=== PATIENT | female | born 1980 | race African-American/Black ===

== ENCOUNTER 2016-11-17 16:37 | Observation (INO) | payer MEDICAID, OTHER ==
[~2016-11-17] VITALS: Ht 165.1 cm; Wt 70.9 kg
[~2016-11-17 16:37] MED LIST: ABIL5TAB6 PO; AMBI10TA PO; CLON0.1T PO; CYCL1TAB29 PO; LISI10TA3 PO; MILKSUS PO; NORE1TAB57 PO; OMEP20TA PO; SERT-129 PO; SUMA50TA2 PO; TOPA100T11 PO; [UNRECOGNIZED DRUG - CODE] IM
[2016-11-17 16:39] VITALS: BP 176/83; PULSE 118; RESP 16; TEMP 98.8; O2SAT 100
[2016-11-17] MEDS ORDERED: SODIUM CHLOR 0.9% 1000 ML INJ 1,000 ML IV SCH (16:58)
[2016-11-17 17:00] VITALS: RESP 18; O2SAT 100
[2016-11-17] MEDS ORDERED: SODIUM CHLORIDE 0.9% FLUSH 5 ML FLUSH IVF PRN (17:00)
[2016-11-17] MEDS ORDERED: ONDANSETRON HCL 4 MG/2 ML VIAL IVP ONE (17:00)
--- NOTE | 2016-11-17 17:04 | PD ---
HPI Chief Complaint: GI Complaint Time Seen by Provider: 17:00 Travel History International Travel<30 days: No Contact w/Intl Traveler<30days: No Traveled to known affect area: No History of Present Illness HPI 36-year-old female presents to the emergency department for evaluation of vomiting, chest pain, abdominal pain that started this morning. She states the abdominal pain and chest pain worsen when she vomits. Patient is unable to keep any food or fluids down today. She does report a history of spontaneous pneumothorax, hypertension, depression, seizures. Patient states that her abdominal pain is diffuse. She denies any fevers or chills. She states the chest pains over her anterior chest wall. She reports multiple episodes of vomiting, every 20 minutes. PFSH Past Medical History Hx Anticoagulant Therapy: No Anxiety: Yes Depression: Yes Cancer: No Cardiovascular Problems: No High Cholesterol: No Chemotherapy: No Chest Pain: Yes (CHRONIC FOR 3 YEARS) Cerebrovascular Accident: No Diabetes: No Diminished Hearing: No Endocrine: No Genitourinary: Yes Headaches: Yes Hypertension: Yes Immune Disorder: No Musculoskeletal: Yes Neurologic: Yes Psychiatric: Yes Reproductive: No Respiratory: Yes (HX OF PNEUMOTHORACES) Integumentary: Yes Immunizations Current: Yes Migraines: Yes Seizures: Yes (ONCE, NOT ON MEDS) Sickle Cell Disease: Yes (TRAIT) Tetanus Vaccination: > 5 Years ?: Not LMP: 10/16/16 : 9 Para: 9 Miscarriage: 0 : 0 Ovarian Cysts: Yes Tubal Ligation: Yes Past Surgical History Cardiac Surgery: Yes (CHEST TUBE 2006) Section: Yes (02/13/2010 X 1) Gynecologic Surgery: Yes () Thoracic Surgery: Yes (PNEUMOTHORAX) Other Surgery: Yes (right chest tube in aug 03 FOR SPONT. PNEUMOTHORAX) Social History Alcohol Use: No (pt. denies) Tobacco Use: Yes (1-2 CIGS/DAY) Substance Use: Yes (MARIJUANA OCCASIONALLY) Allergies-Medications (Allergen,Severity, Reaction): Coded Allergies: No Known Allergies (Verified , 11/17/16) Reported Meds & Prescriptions Reported Meds & Active Scripts Active Sertraline (Sertraline HCl) 100 Mg Tab 100 Mg PO DAILY Clonidine (Clonidine HCl) 0.1 Mg Tab 0.1 Mg PO DAILY PRN Ambien (Zolpidem Tartrate) 10 Mg Tab 5 Mg PO HS PRN Omeprazole 20 Mg Tab 20 Mg PO DAILY Reported Topamax (Topiramate) 100 Mg Tab 100 Mg PO BID Lisinopril 10 Mg Tab 20 Mg PO DAILY Abilify (Aripiprazole) 5 Mg Tab 10 Mg PO DAILY Loestrin 1.5/30 (Norethindrone-Ethinyl Estradiol) 1.5-30 Mg-Mcg Tab 1 Tab PO DAILY Review of Systems Except as stated in HPI: all other systems reviewed are Neg Physical Exam Narrative GENERAL: Well-developed well-nourished female patient, ambulatory. Afebrile. SKIN: Warm and dry. HEAD: Normocephalic. Atraumatic. EYES: No scleral icterus. No injection or drainage. NECK: Supple, trachea midline. No JVD or lymphadenopathy. CARDIOVASCULAR: Regular rate and rhythm without murmurs, gallops, or rubs. RESPIRATORY: Breath sounds equal bilaterally. No accessory muscle use. Lungs sounds are clear to auscultation. GASTROINTESTINAL: Abdomen soft and nondistended. Patient has generalized tenderness throughout her abdomen. MUSCULOSKELETAL: No cyanosis, or edema. Anterior chest wall pain is easily reproduced with palpation. BACK: Nontender without obvious deformity. No CVA tenderness. Data Data Last Documented VS Vital Signs Date Time Temp Pulse Resp B/P Pulse Ox O2 Delivery O2 Flow Rate FiO2 11/17/16 20:55 112 18 154/90 100 Room Air 11/17/16 16:39 98.8 Orders Complete Blood Count With Diff (11/17/16 16:58) Comprehensive Metabolic Panel (11/17/16 16:58) Lipase (11/17/16 16:58) Urinalysis - C+S If Indicated (11/17/16 16:58) Iv Access Insert/Monitor (11/17/16 16:58) Ecg Monitoring (11/17/16 16:58) Oximetry (11/17/16 16:58) Ondansetron Inj (Zofran Inj) (11/17/16 17:00) Sodium Chlor 0.9% 1000 Ml Inj (Ns 1000 M (11/17/16 16:58) Sodium Chloride 0.9% Flush (Ns Flush) (11/17/16 17:00) Electrocardiogram (11/17/16 16:58) Ed Urine Pregnancytest Poc (11/17/16 16:58) Chest, Single Ap (11/17/16 ) Creatine Kinase (Cpk) (11/17/16 16:58) Troponin I (11/17/16 16:58) Influenzae A/B Antigen (11/17/16 16:58) Promethazine Inj (Phenergan Inj) (11/17/16 18:00) Sodium Chlor 0.9% 1000 Ml Inj (Ns 1000 M (11/17/16 18:15) Metoclopramide Inj (Reglan Inj) (11/17/16 19:30) Diphenhydramine Inj (Benadryl Inj) (11/17/16 19:30) Ct Abd/Pel W Iv Contrast(Rout) (11/17/16 ) Iohexol 350 Inj (Omnipaque 350 Inj) (11/17/16 19:58) Ondansetron Inj (Zofran Inj) (11/17/16 20:45) Sodium Chlor 0.9% 1000 Ml Inj (Ns 1000 M (11/17/16 20:45) Labs Laboratory Tests Test 11/17/16 11/17/16 17:00 18:45 White Blood Count 7.9 TH/MM3 Red Blood Count 4.42 MIL/MM3 Hemoglobin 9.5 GM/DL Hematocrit 29.5 % Mean Corpuscular Volume 66.8 FL Mean Corpuscular Hemoglobin 21.4 PG Mean Corpuscular Hemoglobin 32.0 % Concent Red Cell Distribution Width 23.7 % Platelet Count 278 TH/MM3 Mean Platelet Volume 8.3 FL Neutrophils (%) (Auto) % Lymphocytes (%) (Auto) % Monocytes (%) (Auto) % Eosinophils (%) (Auto) % Basophils (%) (Auto) % Neutrophils # (Auto) TH/MM3 Lymphocytes # (Auto) TH/MM3 Monocytes # (Auto) TH/MM3 Eosinophils # (Auto) TH/MM3 Basophils # (Auto) TH/MM3 CBC Comment AUTO DIFF Differential Total Cells 100 Counted Neutrophils % (Manual) 78 % Lymphocytes % 18 % Monocytes % 3 % Eosinophils % 1 % Neutrophils # (Manual) 6.2 TH/MM3 Differential Comment FINAL DIFF MANUAL Platelet Estimate NORMAL Platelet Morphology Comment NORMAL Target Cells 1+ Ovalocytes 1+ Sodium Level 141 MEQ/L Potassium Level 3.7 MEQ/L Chloride Level 109 MEQ/L Carbon Dioxide Level 22.7 MEQ/L Anion Gap 9 MEQ/L Blood Urea Nitrogen 5 MG/DL Creatinine 0.69 MG/DL Estimat Glomerular Filtration 116 ML/MIN Rate Random Glucose 127 MG/DL Calcium Level 8.9 MG/DL Total Bilirubin 0.4 MG/DL Aspartate Amino Transf 11 U/L (AST/SGOT) Alanine Aminotransferase 18 U/L (ALT/SGPT) Alkaline Phosphatase 47 U/L Total Creatine Kinase 110 U/L Troponin I LESS THAN 0.02 NG/ML Total Protein 8.3 GM/DL Albumin 4.0 GM/DL Lipase 143 U/L Urine Color YELLOW Urine Turbidity HAZY Urine pH 6.0 Urine Specific [place] 1.017 Urine Protein 30 mg/dL Urine Glucose (UA) NEG mg/dL Urine Ketones TRACE mg/dL Urine Occult Blood NEG Urine Nitrite NEG Urine Bilirubin NEG Urine Urobilinogen LESS THAN 2.0 MG/DL Urine Leukocyte Esterase SMALL Urine RBC 2 /hpf Urine WBC 4 /hpf Urine Squamous Epithelial 39 /hpf Cells Urine Bacteria OCC /hpf Microscopic Urinalysis Comment CULT NOT INDICATED MDM Medical Decision Making Medical Screen Exam Complete: Yes Emergency Medical Condition: Yes Medical Record Reviewed: Yes Interpretation(s) chest x-ray - CONCLUSION: No acute disease. Left basilar subsegmental atelectasis. CT abdomen/pelvis - CONCLUSION: 1. Benign-appearing left ovarian cyst and trace free fluid in the pelvic cul-de- sac. 2. Otherwise chronic findings including innumerable tiny cysts of the liver and scarring of the right lung base. Differential Diagnosis Gastroenteritis versus influenza versus UTI versus spontaneous pneumothorax versus unlikely ACS Narrative Course 36-year-old female presents to the emergency department for evaluation nausea, vomiting, chest pain, abdominal pain that started this morning. EKG, CBC, CMP, lipase, CK, troponin, influenza, UA, urine test, chest x-ray are ordered and pending. Patient is given normal saline 1 L IV bolus and Zofran 4 mg IV. EKG shows sinus tachycardia, HR 102, no acute ST changes. CBC shows hgb 9.5, hct 29.5 which is patient's baseline. CMP shows no acute abnormality. Lipase is 143. CK is 110. Troponin is less than 0.02. Influenza is negative. UA shows no acute infection. UPT is negative. Chest x-ray shows no acute disease. CT abdomen/pelvis is ordered and shows benign-appearing left ovarian cyst and trace free fluid in the pelvic cul-de-sac; otherwise chronic findings including innumerable tiny cysts of the liver and scarring of the right lung base. Patient was given a total of Zofran 4 mg IV, Phenergan 25 mg IM, Reglan 10 mg IV with Benadryl 25 mg IV and is still complaining of nausea and vomiting. Patient is given another dose of Zofran 4 mg IV. I discussed admission for intractable nausea and vomiting with the patient and she agrees. Dr. Burris with [facility] accepted admission. Diagnosis Primary Impression: Intractable nausea and vomiting Qualified Code: R11.2 - Intractable vomiting with nausea, unspecified vomiting type Additional Impression: Gastroenteritis Admitting Information Admitting Physician Requests: Yuli Bone Nov 17, 2016 17:04
[2016-11-17 17:20] LABS: HEMATOCRIT 29.5 % (35.0-46.0); MEAN CELL VOLUME 66.8 FL (80.0-100.0); MEAN CORPUSCULAR HEMOGLOBIN 21.4 PG (27.0-34.0); PLATELET COUNT 278 TH/MM3 (150-450); RED BLOOD COUNT 4.42 MIL/MM3 (4.00-5.30); RED CELL DISTRIBUTION WIDTH 23.7 % (11.6-17.2); WHITE BLOOD COUNT 7.9 TH/MM3 (4.0-11.0)
--- NOTE | 2016-11-17 17:20 | RADRPT ---
EXAM DATE/TIME: 11/17/2016 17:08 [facility] COMPARISON: CHEST SINGLE AP, March 06, 2016, 9:59. INDICATIONS : Cough, congestion, and chest pain. MEDICAL HISTORY : Spontaneous pneumothorax. SURGICAL HISTORY : None. ENCOUNTER: Initial ACUITY: 1 day PAIN SCORE: 5/10 LOCATION: Bilateral chest FINDINGS: A single view of the chest demonstrates left basilar subsegmental atelectasis without evidence of mas s, infiltrate or effusion. The cardiomediastinal contours are unremarkable. Osseous structures are intact. CONCLUSION: No acute disease. Left basilar subsegmental atelectasis. Michael Gill MD on November 17, 2016 at 17:18 Board Certified Radiologist. This report was verified electronically.
[2016-11-17 17:24] LABS: HEMO FLAGS AUTO DIFF
[2016-11-17 17:37] LABS: ALT (GPT) 18 U/L (10-53); ANION GAP 9 MEQ/L (5-15); AST (GOT) 11 U/L (15-37); BICARBONATE 22.7 MEQ/L (21.0-32.0); BLOOD UREA NITROGEN 5 MG/DL (7-18); CHLORIDE 109 MEQ/L (98-107); GLOMERULAR FILTRATION RATE 116 ML/MIN (>89); POTASSIUM 3.7 MEQ/L (3.5-5.1); SODIUM (NA) 141 MEQ/L (136-145)
[2016-11-17 17:41] LABS: ALKALINE PHOSPHATASE 47 U/L (45-117); CREATINE KINASE 110 U/L (26-192); TOTAL BILIRUBIN ADULT 0.4 MG/DL (0.2-1.0)
[2016-11-17 17:44] LABS: EOSINOPHILS 1 % (0-4); NEUTROPHIL # MANUAL DIFF 6.2 TH/MM3 (1.8-7.7); POLYS (SEG NEUTROPHILS) 78 % (16-70); WBC DIFF SAMPLE 100
[2016-11-17 17:45] LABS: OVALOCYTES 1+ (NORMAL); PLATELET ESTIMATE SMEAR NORMAL (NORMAL); PLATELET MORPHOLOGY NORMAL (NORMAL); SCAN/DIFF FINAL DIFF MANUAL; TARGET CELLS 1+ (NORMAL)
[2016-11-17] MEDS ORDERED: PROMETHAZINE INJ 25 MG/ML VIAL IM ONE (18:00)
[2016-11-17] MEDS ORDERED: SODIUM CHLOR 0.9% 1000 ML INJ 1,000 ML IV ONE ×2 (18:15→20:45)
[2016-11-17 18:18] VITALS: BP 145/86; PULSE 98; RESP 17; O2SAT 100
[2016-11-17 19:25] LABS: BACTERIA, URINE OCC /hpf; BLOOD, URINE NEG (NEG); COMMENT (UR) CULT NOT INDICATED; CULTURE IF INDICATED CULT NOT INDICATED; GLUCOSE,URINE NEG (NEG); KETONE, URINE TRACE mg/dL (NEG); NITRITE,URINE NEG (NEG); SQUAMOUS EPITHELIAL CELL URINE 39 /hpf (0-5); URINE COLOR YELLOW (YELLW/STRAW)
[2016-11-17] MEDS ORDERED: diphenhydrAMINE HCL 50 MG/ML VIAL IV PUSH ONE (19:30)
[2016-11-17] MEDS ORDERED: METOCLOPRAMIDE HCL 10 MG/2 ML VIAL IV PUSH ONE (19:30)
[2016-11-17] MEDS ORDERED: IOHEXOL 350 MG/ML 10 ML VIAL (for RAD DIAG) IV ONE (19:58)
--- NOTE | 2016-11-17 20:13 | RADRPT ---
EXAM DATE/TIME: 11/17/2016 19:45 [facility] COMPARISON: CT ABDOMEN & PELVIS W CONTRAST, February 15, 2015, 7:14. INDICATIONS : Vomiting with diffuse abdomen pain today. IV CONTRAST: 96 cc Omnipaque 350 (iohexol) IV ORAL CONTRAST: No oral contrast ingested. RADIATION DOSE: 9.96 CTDIvol (mGy) MEDICAL HISTORY : Hypertension. SURGICAL HISTORY : section. ENCOUNTER: Initial ACUITY: 1 day PAIN SCALE: 4/10 LOCATION: Abdomen TECHNIQUE: Volumetric scanning of the abdomen and pelvis was performed. Using automated exposure control and ad justment of the mA and/or kV according to patient size, radiation dose was kept as low as reasonably achievable to obtain optimal diagnostic quality images. FINDINGS: LOWER LUNGS: Chronic pleural calcification/scarring again seen posteromedially of the right lung base. No acute in filtrate demonstrated. LIVER: 2 numerous to count subcentimeter hypodensities of the liver are again noted, stable. CT appearance o f the gallbladder within normal limits. SPLEEN: Normal size without lesion. PANCREAS: Within normal limits. KIDNEYS: Normal in size and shape. There is no mass, stone or hydronephrosis. ADRENAL GLANDS: Within normal limits. VASCULAR: There is no aortic aneurysm. BOWEL/MESENTERY: The stomach, small bowel, and colon demonstrate no acute abnormality. There is no free intraperitone al air or fluid. ABDOMINAL WALL: Within normal limits. RETROPERITONEUM: There is no lymphadenopathy. BLADDER: No wall thickening or mass. REPRODUCTIVE: 13 x 24 x 19 mm cyst seen of the left ovary. There is trace free fluid in the pelvic cul-de-sac. INGUINAL: There is no lymphadenopathy or hernia. MUSCULOSKELETAL: No acute bony abnormality demonstrated. Degenerative disc disease with vacuum phenomena seen at L5/S1 . CONCLUSION: 1. Benign-appearing left ovarian cyst and trace free fluid in the pelvic cul-de-sac. 2. Otherwise chronic findings including innumerable tiny cysts of the liver and scarring of the right lung base. 1. Ebenezer Ron MD on November 17, 2016 at 20:05 Board Certified Radiologist. This report was verified electronically.
[2016-11-17] MEDS ORDERED: ONDANSETRON HCL 4 MG/2 ML VIAL IV PUSH ONE (20:45)
[2016-11-17 20:55] VITALS: BP 154/90; PULSE 112; RESP 18; O2SAT 100
[2016-11-17] MEDS ORDERED: NALOXONE HCL 0.4 MG/ML AMP IV PRN (21:15)
[2016-11-17] MEDS: SODIUM CHLOR 0.9% 1000 ML INJ 1,000 ML IV SCH (22:11)
[2016-11-17] MEDS: SODIUM CHLORIDE 0.9% FLUSH 5 ML FLUSH FLUSH PRN (22:11)
[2016-11-17 22:22] VITALS: PULSE 119
[2016-11-17] MEDS ORDERED: NITROGLYCERIN 0.4 MG SL 25 TABS/BTL SL PRN (22:30)
[2016-11-17] MEDS: METOCLOPRAMIDE HCL 10 MG/2 ML VIAL IV PUSH PRN (23:17)
[2016-11-17 23:23] VITALS: PULSE 104
[2016-11-17 23:48] LABS: CREATINE KINASE 116 U/L (26-192)
[2016-11-18] VITALS (8 sets, daily range): BP systolic 133–178; BP diastolic 79–111; PULSE 84–105; RESP 16–24; TEMP 96.9–99.1; O2SAT 95–100
--- NOTE | 2016-11-18 01:22 | HHI.HP ---
[facility] Service [facility] Primary Care Physician No Primary Care Physician Admission Diagnosis intractable nausea/vomiting Diagnoses: (1) Atypical chest pain (2) Abdominal pain (3) Intractable nausea and vomiting (4) Anemia Chief Complaint: nausea and vomiting Travel History International Travel<30 Days: No Contact w/Intl Traveler <30 Da: No Traveled to Known Affected Are: No History of Present Illness Ms. Armstrong is a 36-year-old female with past medical history of migraine headaches, seizure x 1 not on antiepileptic drug therapy, chronic chest pain, pneumothorax with chest tube placement 2006 and 2014, ovarian cysts, anxiety, and depression who presented to the emergency room on 11/17/2016 for evaluation of chest pain, abdominal pain, nausea, and vomiting. The patient is seen in her room and states that around 3:00 in the morning yesterday she began to have diarrhea followed by abdominal pain with nausea and vomiting. Vomit was initially colored yellow or clear and is now brown. Vomitus is in an emesis basis and at the bedside and appears like coffee- grounds. Patient also reports having red diarrhea and upon further questioning , states she has streaks of red on the toilet paper after wiping. She denies any fever. States abdominal pain is severe and located in both upper and lower abdomen. She denies any recent antibiotic therapy. She complains of feeling fatigued and tired. She also complains of chest pain coming from the sides and associated with vomiting. She denies any associated shortness of breath, syncope, or palpitations. She denies any dysuria or hematuria. She does complain of some dizziness intermittently causing her to sit down because she doesn't want to walk when she is dizzy. She reports she had a similar symptoms to this about a week ago and they lasted for 4 days. Denies diabetes, coronary artery disease, congestive heart failure, atrial fibrillation, asthma, COPD, emphysema, hepatitis, cirrhosis, kidney problems, thyroid dysfunction, cancer, or problems with blood clots such as DVT, PE, or CVA. . Review of Systems Except as stated in HPI: all other systems reviewed are Neg Past Family Social History Past Medical History Migraine headaches Seizure once, nonepileptic drug therapy Chronic chest pain Spontaneous Pneumothorax with chest tube placement in 2006, 2014 and 2016- small pneumothoraces in 2015 and 2016 not requiring chest tubes Ovarian cyst Anxiety Depression . Past Surgical History Chest tube 2007 1 . Reported Medications Reported Meds & Active Scripts Active Sertraline (Sertraline HCl) 100 Mg Tab 100 Mg PO DAILY Clonidine (Clonidine HCl) 0.1 Mg Tab 0.1 Mg PO DAILY PRN Ambien (Zolpidem Tartrate) 10 Mg Tab 5 Mg PO HS PRN Omeprazole 20 Mg Tab 20 Mg PO DAILY Reported Topamax (Topiramate) 100 Mg Tab 100 Mg PO BID Lisinopril 10 Mg Tab 20 Mg PO DAILY Abilify (Aripiprazole) 5 Mg Tab 10 Mg PO DAILY Loestrin 1.5/30 (Norethindrone-Ethinyl Estradiol) 1.5-30 Mg-Mcg Tab 1 Tab PO DAILY . Allergies: Coded Allergies: No Known Allergies (Verified , 11/22/16) Active Ordered Medications Current Medications Ondansetron HCl 4 mg 4 mg ONCE ONCE IVP Last administered on 11/17/16 17:08; Start 11/17/16 at 17:00; Stop 11/17/16 at 17:01; Status DC Sodium Chloride (NS 1000 ml Inj) 1,000 ml @ 1,000 mls/hr Q1H IV Last administered on 11/17/16 17:08; Start 11/17/16 at 16:58; Stop 11/17/16 at 17:57 ; Status DC IV Flush (NS Flush) 2 ml UNSCH PRN IVF FLUSH AFTER USING IV ACCESS; Start 11/17 at 17:00; Stop 11/17/16 at 21:15; Status DC Promethazine HCl 25 mg 25 mg ONCE ONCE IM Last administered on 11/17/16 17:56 ; Start 11/17/16 at 18:00; Stop 11/17/16 at 18:01; Status DC Sodium Chloride (NS 1000 ml Inj) 1,000 ml @ 999 mls/hr BOLUS ONCE IV Last administered on 11/17/16 18:16; Start 11/17/16 at 18:15; Stop 11/17/16 at 19:47 ; Status DC Metoclopramide HCl (Reglan Inj) 10 mg ONCE ONCE IV PUSH Last administered on 19:31; Start 11/17/16 at 19:30; Stop 11/17/16 at 19:47; Status DC Diphenhydramine HCl (Benadryl Inj) 25 mg ONCE ONCE IV PUSH Last administered on 11/17/16 19:31; Start 11/17/16 at 19:30; Stop 11/17/16 at 19:47; Status DC Iohexol (Omnipaque 350 Inj) 96 ml STK-MED ONCE IV Last administered on 19:58; Start 11/17/16 at 19:58; Stop 11/17/16 at 19:59; Status DC Ondansetron HCl 4 mg 4 mg ONCE ONCE IV PUSH Last administered on 11/17/16 20: 54; Start 11/17/16 at 20:45; Stop 11/17/16 at 20:46; Status DC Sodium Chloride 1,000 ml @ 999 mls/hr BOLUS ONCE IV Last administered on 11/17 20:54; Start 11/17/16 at 20:45; Stop 11/17/16 at 21:45; Status DC Sodium Chloride (NS 1000 ml Inj) 1,000 ml @ 100 mls/hr Q10H IV Last administered on 11/17/16 22:11; Start 11/17/16 at 21:07 IV Flush (NS Flush) 2 ml UNSCH PRN FLUSH FLUSH AFTER USING IV ACCESS Last administered on 11/17/16 22:11; Start 11/17/16 at 21:15 IV Flush (NS Flush) 2 ml BID FLUSH ; Start 11/18/16 at 09:00 Ondansetron HCl (Zofran Inj) 4 mg Q6H PRN IVP NAUSEA OR VOMITING; Start at 21:15 Metoclopramide HCl (Reglan Inj) 5 mg Q6H PRN IV PUSH NAUSEA OR VOMITING Last administered on 11/17/16 23:17; Start 11/17/16 at 21:15 Naloxone HCl (Narcan Inj) 0.4 mg UNSCH PRN IV SEE LABEL COMMENTS; Start at 21:15 Nitroglycerin (Nitrostat Sl) 0.4 mg Q5M PRN SL CHEST PAIN Last administered on 2/21/17at 22:34; Start 11/17/16 at 22:30 . Family History Kidney failure, heart failure and diabetes . Social History Tobacco: Smokes less than a 1/2 pack per day Alcohol: every once in a while Illicit Drugs: denies . Physical Exam Vital Signs Vital Signs Date Time Temp Pulse Resp B/P Pulse Ox O2 Delivery O2 Flow Rate FiO2 11/17/16 23:23 104 11/17/16 22:39 16 11/17/16 22:22 119 11/17/16 20:55 112 18 154/90 100 Room Air 11/17/16 18:18 98 17 145/86 100 Room Air 11/17/16 17:00 18 100 Room Air 11/17/16 16:52 18 11/17/16 16:39 98.8 118 16 176/83 100 Physical Exam GENERAL: This is a middle-aged female patient, in no apparent distress. SKIN: No rashes, ecchymoses or lesions. Cool and dry. HEAD: Atraumatic. Normocephalic. EYES: No scleral icterus. No injection or drainage. ENT: Nose without bleeding, purulent drainage. NECK: Trachea midline. No JVD or lymphadenopathy. CARDIOVASCULAR: Regular rate and rhythm without murmurs, gallops, or rubs. RESPIRATORY: Clear to auscultation. Breath sounds equal bilaterally. No wheezes , rales, or rhonchi. GASTROINTESTINAL: Abdomen soft, nondistended. No guarding. Patient is moaning in pain and complaining of abdominal pain but pain response does not increase with palpation of abdomen. Bowel sounds hypoactive. MUSCULOSKELETAL: Extremities without clubbing, cyanosis, or edema. No calf tenderness. NEUROLOGICAL: Awake and alert. Motor and sensory grossly within normal limits. Normal speech. . Laboratory Laboratory Tests Test 11/17/16 11/17/16 11/17/16 17:00 18:45 23:09 White Blood Count 7.9 Red Blood Count 4.42 Hemoglobin 9.5 Hematocrit 29.5 Mean Corpuscular Volume 66.8 Mean Corpuscular Hemoglobin 21.4 Mean Corpuscular Hemoglobin 32.0 Concent Red Cell Distribution Width 23.7 Platelet Count 278 Mean Platelet Volume 8.3 Neutrophils (%) (Auto) Lymphocytes (%) (Auto) Monocytes (%) (Auto) Eosinophils (%) (Auto) Basophils (%) (Auto) Neutrophils # (Auto) Lymphocytes # (Auto) Monocytes # (Auto) Eosinophils # (Auto) Basophils # (Auto) CBC Comment AUTO DIFF Differential Total Cells 100 Counted Neutrophils % (Manual) 78 Lymphocytes % 18 Monocytes % 3 Eosinophils % 1 Neutrophils # (Manual) 6.2 Differential Comment FINAL DIFF MANUAL Platelet Estimate NORMAL Platelet Morphology Comment NORMAL Target Cells 1+ Ovalocytes 1+ Sodium Level 141 Potassium Level 3.7 Chloride Level 109 Carbon Dioxide Level 22.7 Anion Gap 9 Blood Urea Nitrogen 5 Creatinine 0.69 Estimat Glomerular Filtration 116 Rate Random Glucose 127 Calcium Level 8.9 Total Bilirubin 0.4 Aspartate Amino Transf 11 (AST/SGOT) Alanine Aminotransferase 18 (ALT/SGPT) Alkaline Phosphatase 47 Total Creatine Kinase 110 116 Troponin I LESS THAN 0.02 LESS THAN 0.02 Total Protein 8.3 Albumin 4.0 Lipase 143 Urine Color YELLOW Urine Turbidity HAZY Urine pH 6.0 Urine Specific [place] 1.017 Urine Protein 30 Urine Glucose (UA) NEG Urine Ketones TRACE Urine Occult Blood NEG Urine Nitrite NEG Urine Bilirubin NEG Urine Urobilinogen LESS THAN 2.0 Urine Leukocyte Esterase SMALL Urine RBC 2 Urine WBC 4 Urine Squamous Epithelial 39 Cells Urine Bacteria OCC Microscopic Urinalysis Comment CULT NOT INDICATED Date/Time Procedure Status Source Growth 11/17/16 17:00 Influenza Types A,B Antigen (SINDHU) - Final Complete Nasal Aspirate NEGATIVE FOR FLU A AND B ANTIGEN.... Result Diagram: 11/17/16 1700 11/17/16 1700 Imaging Last Impressions Chest X-Ray 11/17/16 0000 Signed Impressions: Service Date/Time: Thursday, November 17, 2016 17:08 - CONCLUSION: No acute disease. Left basilar subsegmental atelectasis. Michael Gill MD Abdomen/Pelvis CT 11/17/16 0000 Signed Impressions: Service Date/Time: Thursday, November 17, 2016 19:45 - CONCLUSION: 1. Benign-appearing left ovarian cyst and trace free fluid in the pelvic cul-de-sac. 2. Otherwise chronic findings including innumerable tiny cysts of the liver and scarring of the right lung base. 1. Ebenezer Ron MD . Assessment and Plan Problem List: (1) Abdominal pain ICD Code: R10.9 Status: Acute (2) Intractable nausea and vomiting ICD Code: R11.2 Status: Acute (3) Atypical chest pain ICD Code: R07.89 Status: Acute (4) Anemia ICD Code: D64.9 Status: Chronic Assessment and Plan Ms. Armstrong is a 36-year-old female with past medical history of migraine headaches, seizure x 1 not on antiepileptic drug therapy, chronic chest pain, pneumothorax with chest tube placement 2006 and 2014, ovarian cysts, anxiety, and depression who presented to the emergency room on 11/17/2016 for evaluation of chest pain, abdominal pain, nausea, and vomiting. Atypical chest pain - Chest x-ray with no acute disease; left basilar subsegmental atelectasis noted - Serial EKGs and cardiac set of enzymes to rule out ACS - Continuous cardiac telemetry Abdominal pain with intractable nausea and vomiting - CT abdomen/pelvis with IV contrast: Benign-appearing left ovarian cyst and trace free fluid in the pelvic cul-de-sac; chronic findings including innumerable tiny cysts on the liver and scarring of the right lung base - Zofran 4 mg IV push every 6 hours as needed for nausea and vomiting - Metoclopramide 5 mg IV push every 6 hours as needed for nausea and vomiting - Monitor I and O every shift - Nothing by mouth - Normal saline at 100 cc per hour - Emesis at bedside appears like coffee grounds; will check Gastroccult - Protonix drip Anemia, chronic appears to be iron deficiency anemia based on iron studies done in 2016 - Hemoglobin 9.5 and hematocrit 29.5 - Labs are stable compared to prior visits - Recheck CBC in a.m. and follow trends - Consider starting ferrous sulfate 325 mg daily once nausea and vomiting resolve DVT prophylaxis - SCDs Written by Ritika Hawthorne, acting as scribe for Dr. Burris on 11/18/16 at 01:22. All or portions of this note were transcribed by scribe [Ritika Hawthorne]. I, Dr. Isra Burris personally performed the history, physical exam, and medical decision making; and confirmed the accuracy of the information in the transcribed note. Authenticated by Dr. Isra Burris on 11/18/16 at 0122 Discussed Condition With ER physician, patient, and RN Problem Qualifiers (1) Intractable nausea and vomiting: Qualified Code: R11.2 - Intractable vomiting with nausea, unspecified vomiting type Ritika Hawthorne Nov 18, 2016 01:22 Isra Burris MD Dec 02, 2016 08:31
[2016-11-18] MEDS: ONDANSETRON HCL 4 MG/2 ML VIAL IVP PRN ×4 (01:34→23:17)
[2016-11-18] MEDS: PANTOPRAZOLE INJ 80 MG in SODIUM CHLORIDE 0.9% INJ 100 ML IV SCH ×3 (01:51→22:53)
[2016-11-18] MEDS: ZOLPIDEM TARTRATE 10 MG TAB PO PRN ×2 (02:11→21:41)
[2016-11-18 05:24] LABS: AUTOMATED NEUTROPHIL # 7.7 TH/MM3 (1.8-7.7); BASOPHIL % 0.4 % (0.0-2.0); HEMATOCRIT 27.5 % (35.0-46.0); LYMPHOCYTE # 1.2 TH/MM3 (1.0-4.8); MEAN CELL VOLUME 67.3 FL (80.0-100.0); MEAN CORPUSCULAR HEMOGLOBIN 21.2 PG (27.0-34.0); MEAN CORPUSCULAR HGB CONC 31.5 % (32.0-36.0); MONO % 4.3 % (0.0-8.0); NEUT % 82.3 % (16.0-70.0); PLATELET COUNT 285 TH/MM3 (150-450); RED BLOOD COUNT 4.08 MIL/MM3 (4.00-5.30); RED CELL DISTRIBUTION WIDTH 22.2 % (11.6-17.2); WHITE BLOOD COUNT 9.4 TH/MM3 (4.0-11.0)
[2016-11-18 05:30] LABS: HEMO FLAGS AUTO DIFF
[2016-11-18 05:57] LABS: ALKALINE PHOSPHATASE 45 U/L (45-117); ALT (GPT) 16 U/L (10-53); ANION GAP 9 MEQ/L (5-15); AST (GOT) 11 U/L (15-37); BICARBONATE 22.8 MEQ/L (21.0-32.0); BLOOD UREA NITROGEN 4 MG/DL (7-18); CHLORIDE 111 MEQ/L (98-107); CREATINE KINASE 124 U/L (26-192); GLOMERULAR FILTRATION RATE 140 ML/MIN (>89); POTASSIUM 3.4 MEQ/L (3.5-5.1); SODIUM (NA) 143 MEQ/L (136-145); TOTAL BILIRUBIN ADULT 0.4 MG/DL (0.2-1.0)
[2016-11-18 06:41] LABS: SCAN/DIFF AUTO DIFF CONFIRMED
[2016-11-18] MEDS ORDERED: MAGNESIUM SULFATE 1 GM PREMIX 100 ML IV ONE (06:45)
[2016-11-18] MEDS: POTASSIUM CHLOR 20 MEQ PREMIX 100 ML IV SCH ×2 (08:45→08:58)
[2016-11-18] MEDS: SERTRALINE HCL 100 MG TAB PO SCH (08:57)
[2016-11-18] MEDS: LISINOPRIL 10 MG TAB PO SCH (08:57)
[2016-11-18] MEDS: SODIUM CHLORIDE 0.9% FLUSH 5 ML FLUSH FLUSH SCH ×2 (08:57→21:40)
[2016-11-18] MEDS: ARIPiprazole 5 MG TAB PO SCH (08:57)
[2016-11-18] MEDS: SODIUM CHLOR 0.9% 1000 ML INJ 1,000 ML IV SCH ×3 (08:58→23:00)
[2016-11-18] MEDS: TOPIRAMATE 100 MG TAB PO SCH ×2 (09:00→21:41)
--- NOTE | 2016-11-18 11:43 | PD.CONS ---
HPI History of Present Illness This is a 36 year old female who came to the emergency room for evaluation of nausea, vomiting, and abdominal pain. She is an extremely poor historian and refuses to answer many questions, stating that she already went through this yesterday does not feel like answering more questions at this time. She initially denied any abdominal pain or nausea or vomiting for me. However, after further questioning she does report that she started having nausea vomiting yesterday with black coffee-ground emesis. This lasted throughout the day and continued overnight. She last had an episode around 6 AM this morning. She had some associated left anterior chest pain. She will not describe this her give any other information regarding her chest pain and states that she is no longer having this or any abdominal pain. She denies any heartburn, constipation, diarrhea, melena, hematochezia. She denies any history of peptic ulcer disease. She does take ibuprofen 1-2 times a day. She reports that she rarely drinks alcohol. PFSH Past Medical History Migraine headaches Seizure once, nonepileptic drug therapy Chronic chest pain Spontaneous Pneumothorax with chest tube placement in 2006, 2014 and 2015- small pneumothoraces in 2014 and 2015 not requiring chest tubes Ovarian cyst Anxiety Depression Past Surgical History Chest tube 2006 1 Coded Allergies: No Known Allergies (Verified , 11/17/16) Medications Allergies Coded Allergies Type Severity Reaction Last Updated Verified No Known Allergies 11/17/16 Yes Active Scripts Medications Dose Route/Sig Days Date Category Sertraline (Sertraline HCl) 100 Mg Tab 100 Mg PO DAILY 09/26/16 Rx Clonidine (Clonidine HCl) 0.1 Mg Tab 0.1 Mg PO DAILY PRN 09/02/16 Rx Topamax (Topiramate) 100 Mg Tab 100 Mg PO BID 08/04/16 Reported Lisinopril 10 Mg Tab 20 Mg PO DAILY 08/04/16 Reported Abilify (Aripiprazole) 5 Mg Tab 10 Mg PO DAILY 08/04/16 Reported Loestrin 1.5/30 (Norethindrone-Ethinyl Estradiol) 1.5-30 Mg-Mcg Tab 1 Tab PO DAILY 08/04/16 Reported Ambien (Zolpidem Tartrate) 10 Mg Tab 5 Mg PO HS PRN 08/03/16 Rx Omeprazole 20 Mg Tab 20 Mg PO DAILY 07/28/16 Rx Family History Mother from kidney failure Social History Smokes less than a 1/2 pack per day Rare alcohol use No illicit drug use Review of Systems Constitutional: DENIES: Diaphoretic episodes, Fatigue, Fever, Chills Respiratory: DENIES: Cough, Shortness of breath Cardiovascular: COMPLAINS OF: Chest pain Gastrointestinal: COMPLAINS OF: Nausea, Vomiting, Hematemesis, DENIES: Abdominal pain, Black stools, Bloody stools, Constipation, Diarrhea, Heartburn Musculoskeletal: DENIES: Joint pain Integumentary: DENIES: Abnormal pigmentation Hematologic/lymphatic: DENIES: Bruising Neurologic: DENIES: Headache Psychiatric: DENIES: Confusion GI Exam Vitals I&O Vital Signs Date Time Temp Pulse Resp B/P Pulse Ox O2 Delivery O2 Flow Rate FiO2 11/18/16 08:00 90 11/18/16 07:41 98.6 105 18 152/92 100 11/18/16 04:00 98.8 104 16 167/89 99 11/17/16 23:23 104 11/17/16 22:39 16 11/17/16 22:22 119 11/17/16 20:55 112 18 154/90 100 Room Air 11/17/16 18:18 98 17 145/86 100 Room Air 11/17/16 17:00 18 100 Room Air 11/17/16 16:52 18 11/17/16 16:39 98.8 118 16 176/83 100 I/O 11/17/16 11/17/16 11/17/16 11/18/16 11/18/16 11/18/16 07:00 15:00 23:00 07:00 15:00 23:00 Intake Total 240 ml Output Total 150 ml Balance -150 ml 240 ml Intake Oral 240 ml Output Emesis 150 ml # Voids 1 1 Imaging Last Impressions Chest X-Ray 11/17/16 0000 Signed Impressions: Service Date/Time: Thursday, November 17, 2016 17:08 - CONCLUSION: No acute disease. Left basilar subsegmental atelectasis. Michael Gill MD Abdomen/Pelvis CT 11/17/16 0000 Signed Impressions: Service Date/Time: Thursday, November 17, 2016 19:45 - CONCLUSION: 1. Benign-appearing left ovarian cyst and trace free fluid in the pelvic cul-de-sac. 2. Otherwise chronic findings including innumerable tiny cysts of the liver and scarring of the right lung base. 1. Ebenezer Ron MD Laboratory Test 11/17/16 11/17/16 11/17/16 11/18/16 17:00 18:45 23:09 04:43 White Blood Count 7.9 TH/MM3 9.4 TH/MM3 Red Blood Count 4.42 MIL/MM3 4.08 MIL/MM3 Hemoglobin 9.5 GM/DL 8.7 GM/DL Hematocrit 29.5 % 27.5 % Mean Corpuscular Volume 66.8 FL 67.3 FL Mean Corpuscular Hemoglobin 21.4 PG 21.2 PG Mean Corpuscular Hemoglobin 32.0 % 31.5 % Concent Red Cell Distribution Width 23.7 % 22.2 % Platelet Count 278 TH/MM3 285 TH/MM3 Mean Platelet Volume 8.3 FL 8.8 FL Neutrophils (%) (Auto) % 82.3 % Lymphocytes (%) (Auto) % 13.0 % Monocytes (%) (Auto) % 4.3 % Eosinophils (%) (Auto) % 0.0 % Basophils (%) (Auto) % 0.4 % Neutrophils # (Auto) TH/MM3 7.7 TH/MM3 Lymphocytes # (Auto) TH/MM3 1.2 TH/MM3 Monocytes # (Auto) TH/MM3 0.4 TH/MM3 Eosinophils # (Auto) TH/MM3 0.0 TH/MM3 Basophils # (Auto) TH/MM3 0.0 TH/MM3 CBC Comment AUTO DIFF AUTO DIFF Differential Total Cells 100 Counted Neutrophils % (Manual) 78 % Lymphocytes % 18 % Monocytes % 3 % Eosinophils % 1 % Neutrophils # (Manual) 6.2 TH/MM3 Differential Comment FINAL DIFF AUTO DIFF MANUAL CONFIRMED Platelet Estimate NORMAL Platelet Morphology Comment NORMAL Target Cells 1+ Ovalocytes 1+ Sodium Level 141 MEQ/L 143 MEQ/L Potassium Level 3.7 MEQ/L 3.4 MEQ/L Chloride Level 109 MEQ/L 111 MEQ/L Carbon Dioxide Level 22.7 MEQ/L 22.8 MEQ/L Anion Gap 9 MEQ/L 9 MEQ/L Blood Urea Nitrogen 5 MG/DL 4 MG/DL Creatinine 0.69 MG/DL 0.59 MG/DL Estimat Glomerular Filtration 116 ML/MIN 140 ML/MIN Rate Random Glucose 127 MG/DL 124 MG/DL Calcium Level 8.9 MG/DL 8.0 MG/DL Total Bilirubin 0.4 MG/DL 0.4 MG/DL Aspartate Amino Transf 11 U/L 11 U/L (AST/SGOT) Alanine Aminotransferase 18 U/L 16 U/L (ALT/SGPT) Alkaline Phosphatase 47 U/L 45 U/L Total Creatine Kinase 110 U/L 116 U/L 124 U/L Troponin I LESS THAN 0.02 LESS THAN 0.02 LESS THAN 0.02 NG/ML NG/ML NG/ML Total Protein 8.3 GM/DL 7.5 GM/DL Albumin 4.0 GM/DL 3.3 GM/DL Lipase 143 U/L 135 U/L Urine Color YELLOW Urine Turbidity HAZY Urine pH 6.0 Urine Specific [place] 1.017 Urine Protein 30 mg/dL Urine Glucose (UA) NEG mg/dL Urine Ketones TRACE mg/dL Urine Occult Blood NEG Urine Nitrite NEG Urine Bilirubin NEG Urine Urobilinogen LESS THAN 2.0 MG/DL Urine Leukocyte Esterase SMALL Urine RBC 2 /hpf Urine WBC 4 /hpf Urine Squamous Epithelial 39 /hpf Cells Urine Bacteria OCC /hpf Microscopic Urinalysis Comment CULT NOT INDICATED Magnesium Level 1.7 MG/DL Date/Time Procedure Status Source Growth 11/18/16 01:30 Gastric Occult Blood - Final Complete Gastric GASTROCCULT POSITIVE 11/17/16 17:00 Influenza Types A,B Antigen (SINDHU) - Final Complete Nasal Aspirate NEGATIVE FOR FLU A AND B ANTIGEN.... Physical Examination HEENT: Normocephalic; atraumatic; no jaundice. CHEST: CTA. CARDIAC: RRR ABDOMEN: Soft, nondistended, mild tenderness on exam; no hepatosplenomegaly; bowel sounds are present in all four quadrants. EXTREMITIES: No clubbing, cyanosis, or edema. SKIN: Normal; no rash; no jaundice. ADMISSIONS CLINICIAN: No focal deficits; alert and oriented times three. Assessment and Plan Plan ASSESSMENT: -Upper GI bleed with coffee-ground emesis. Denies any history of peptic ulcer disease. Does take ibuprofen 1-2 times a day. Rare alcohol use. H&H went from 9.5/29.5-8.7/27.5. PPI. Will schedule for EGD today - Anemia, acute blood loss. H&H 8.7/27.5, MCV 67.3, MCHC 31.5. Likely iron deficiency anemia. - Atypical chest pain, status post workup from primary - History of migraines, seizure, spontaneous pneumothorax, anxiety, depression per primary Plan: - Plan for egd today - Obtain consents - NPO - Protonix gtt - Supportive care - Further recommendations to follow based on results of above - Pt seen and examined by Dr. Tovar and myself and this note is written on his behalf Rashida Smalls Nov 18, 2016 11:43
[2016-11-18] MEDS ORDERED: MORPHINE SULFATE 4 MG/ML INJ IV PRN (12:00)
[2016-11-18] MEDS ORDERED: ACETAMINOPHEN/HYDROcodone 325 MG/5 MG TAB PO PRN (12:00)
--- NOTE | 2016-11-18 12:19 | HHI.PR ---
Subjective Remarks Follow up for abdominal pain/nausea/vomiting/diarrhea and atypical chest pains. The patient reports continued diffuse abdominal pain and nausea, no further vomiting since in the ER last night. She had another episode of diarrhea 1 hour ago, described as brown liquid stool. She denies any specific chest pains, states the pain was mostly referred from her abdomen. She states when the abdominal pain gets "so bad" it radiates up the center of her chest. She has not had any more chest pains since her arrival. She has been seen by GI, patient agrees with EGD today. The patient denies any recent NSAID use, takes [place] prn pain at home for chronic neck/back pain. Objective Vitals Vital Signs Date Time Temp Pulse Resp B/P Pulse Ox O2 Delivery O2 Flow Rate FiO2 11/18/16 08:00 90 11/18/16 07:41 98.6 105 18 152/92 100 11/18/16 04:00 98.8 104 16 167/89 99 11/17/16 23:23 104 11/17/16 22:39 16 11/17/16 22:22 119 11/17/16 20:55 112 18 154/90 100 Room Air 11/17/16 18:18 98 17 145/86 100 Room Air 11/17/16 17:00 18 100 Room Air 11/17/16 16:52 18 11/17/16 16:39 98.8 118 16 176/83 100 I/O 11/17/16 11/17/16 11/17/16 11/18/16 11/18/16 11/18/16 07:00 15:00 23:00 07:00 15:00 23:00 Intake Total 240 ml Output Total 150 ml Balance -150 ml 240 ml Intake Oral 240 ml Output Emesis 150 ml # Voids 1 1 Result Diagram: 11/18/16 0443 11/18/16 0443 Imaging Last Impressions Chest X-Ray 11/17/16 0000 Signed Impressions: Service Date/Time: Thursday, November 17, 2016 17:08 - CONCLUSION: No acute disease. Left basilar subsegmental atelectasis. Michael Gill MD Abdomen/Pelvis CT 11/17/16 0000 Signed Impressions: Service Date/Time: Thursday, November 17, 2016 19:45 - CONCLUSION: 1. Benign-appearing left ovarian cyst and trace free fluid in the pelvic cul-de-sac. 2. Otherwise chronic findings including innumerable tiny cysts of the liver and scarring of the right lung base. 1. Ebenezer Ron MD Objective Remarks GENERAL: Well-nourished, well-developed middle aged female patient in [facility]. SKIN: Warm and dry. No rash. HEENT: Normocephalic. Atraumatic. Pupils equal and round. No scleral icterus. No injection or drainage. Mucous membranes pink and moist. NECK: Supple. Trachea midline. CARDIOVASCULAR: Regular rate and rhythm. S1, S2 noted. No murmur appreciated. RESPIRATORY: No accessory muscle use. Clear to auscultation. Breath sounds equal bilaterally. GASTROINTESTINAL: Abdomen soft, nondistended, moderate diffuse abdominal tenderness to palpation. Normoactive bowel sounds x4. MUSCULOSKELETAL: No obvious deformities. Extremities without clubbing, cyanosis , or edema. NEUROLOGICAL: Awake and alert. No obvious cranial nerve deficits. Motor grossly within normal limits. Normal speech. PSYCHIATRIC: Appropriate mood and affect; insight and judgment normal. Medications and IVs Current Medications Medications (Trade) Dose Ordered Sig/Haley Route Start Time Stop Time Status Last Admin (NS 1000 ml Inj) 1,000 ml @ 100 mls/hr Q10H IV 11/17/16 21:07 11/18/16 08:58 (NS Flush) 2 ml UNSCH PRN FLUSH 11/17/16 21:15 11/17/16 22:11 (NS Flush) 2 ml BID FLUSH 11/18/16 09:00 11/18/16 08:57 (Zofran Inj) 4 mg Q6H PRN IVP 11/17/16 21:15 11/18/16 08:56 (Reglan Inj) 5 mg Q6H PRN IV PUSH 11/17/16 21:15 11/17/16 23:17 (Narcan Inj) 0.4 mg UNSCH PRN IV 11/17/16 21:15 Nitroglycerin 0.4 mg 0.4 mg Q5M PRN SL 11/17/16 22:30 11/17/16 22:34 (Protonix Inj/NS Inj) 100 ml @ 10 mls/hr Q10H IV 11/18/16 03:00 11/18/16 01:51 (Abilify) 10 mg DAILY PO 11/18/16 09:00 11/18/16 08:57 (Prinivil) 20 mg DAILY PO 11/18/16 09:00 11/18/16 08:57 (Zoloft) 100 mg DAILY PO 11/18/16 09:00 11/18/16 08:57 (Topamax) 100 mg BID PO 11/18/16 09:00 11/18/16 09:00 (Ambien) 5 mg HS PRN PO 11/18/16 02:00 11/18/16 02:11 Urinary Catheter: No Vascular Central Line Catheter: No A/P Problem List: (1) Abdominal pain ICD Code: R10.9 Status: Acute (2) Intractable nausea and vomiting ICD Code: R11.2 Status: Acute (3) Atypical chest pain ICD Code: R07.89 Status: Acute (4) Anemia ICD Code: D64.9 Status: Chronic Assessment and Plan 36-year-old female with hx of migraine headaches, seizure x 1 not on antiepileptic, chronic chest pain, pneumothorax with chest tube placement 2006 and 2014, ovarian cysts, anxiety, and depression who presented to the ED 2016 for evaluation of chest pain, abdominal pain, nausea, and vomiting. Abdominal pain with intractable Nausea/Vomiting and GIB/Hematemesis/Coffee- Ground Emesis - CT abd/pelvis showed Benign-appearing left ovarian cyst and trace free fluid in the pelvic cul-de-sac; chronic findings including innumerable tiny cysts on the liver and scarring of the right lung base - Supportive treatment with IVF, Pain control with [place] and IV Morphin prn, and IV Zofran prn, IV Reglan prn. - NPO for now - Gastroccult positive - Continue IV Protonix drip - Gastroenterology consulted - Plan for EGD today Atypical chest pain, suspect GI related with recent vomiting as above - CXR with no acute disease; left basilar subsegmental atelectasis noted - ACS ruled out with negative Serial cardiac enzymes and EKGs - Monitor on telemetry, sinus tachy however no acute events Anemia, chronic appears to be iron deficiency anemia based on iron studies done in 2016 - Hemoglobin 9.5 and hematocrit 29.5 - Labs are stable compared to prior visits - Monitor CBC - Consider starting ferrous sulfate 325 mg daily once N/V resolve DVT prophylaxis - SCDs, avoid chemical prophylaxis with GI bleed Discussed with Dr. Swift and Rashida SOTO Discharge Planning Await EGD today. Problem Qualifiers (1) Intractable nausea and vomiting: Qualified Code: R11.2 - Intractable vomiting with nausea, unspecified vomiting type Cristina Yu PA-C Nov 18, 2016 12:19
[2016-11-18] MEDS ORDERED: PROPOFOL 200 MG/20 ML AMP IV ONE (13:07)
[2016-11-18] MEDS ORDERED: LACTATED RINGER'S 1,000 ML BAG IV ONE (13:07)
[2016-11-18] MEDS: MORPHINE SULFATE 4 MG/ML INJ IV PRN ×2 (14:10→17:30)
[2016-11-18] MEDS: ACETAMINOPHEN/HYDROcodone 325 MG/7.5 MG TAB PO PRN (21:41)
--- NOTE | 2016-11-18 21:58 | EKG ---
Date Performed: 11/18/2016 Time Performed: 05:01:48 PTAGE: 36 years EKG: Sinus arrhythmia with PACs ABNORMAL RHYTHM ECG PREVIOUS TRACING : 11/17/2016 23.25 Compared to prior tracing no significant change DOCTOR: Janell Garcia Interpretating Date/Time 11/18/2016 21:56:55
--- NOTE | 2016-11-18 22:05 | EKG ---
Date Performed: 11/17/2016 Time Performed: 23:25:17 PTAGE: 36 years EKG: SR w frequent PACs NONSPECIFIC T-WAVE ABNORMALITY ABNORMAL RHYTHM ECG PREVIOUS TRACING : 11/17/2016 17.23 Compared to the previous tracing, frequent PACs present DOCTOR: Janell Garcia Interpretating Date/Time 11/18/2016 22:05:12
--- NOTE | 2016-11-18 22:24 | EKG ---
Date Performed: 11/17/2016 Time Performed: 17:23:29 PTAGE: 36 years EKG: Sinus tachycardia Sinus arrhythmia NONSPECIFIC T-WAVE ABNORMALITY ABNORMAL RHYTHM ECG PREVIOUS TRACING : 05/27/2016 09.44 Compared to the previous tracing, rate faster DOCTOR: Janell Garcia Interpretating Date/Time 11/18/2016 22:22:02
[2016-11-18] MEDS: SODIUM CHLORIDE 0.9% FLUSH 5 ML FLUSH FLUSH PRN (23:17)
[2016-11-19] MEDS: SODIUM CHLORIDE 0.9% FLUSH 5 ML FLUSH FLUSH PRN ×3 (02:00→19:57)
[2016-11-19] MEDS: MORPHINE SULFATE 4 MG/ML INJ IV PRN ×4 (02:00→19:58)
[2016-11-19 04:27] VITALS: BP 172/92; PULSE 75; RESP 18; TEMP 98.2; O2SAT 96
[2016-11-19] MEDS: PANTOPRAZOLE INJ 80 MG in SODIUM CHLORIDE 0.9% INJ 100 ML IV SCH ×2 (05:34→08:59)
[2016-11-19] MEDS: ONDANSETRON HCL 4 MG/2 ML VIAL IVP PRN ×3 (06:10→19:58)
[2016-11-19 08:00] VITALS: BP 168/100; PULSE 81; RESP 18; TEMP 98.2; O2SAT 100
[2016-11-19] MEDS: SODIUM CHLORIDE 0.9% FLUSH 5 ML FLUSH FLUSH SCH ×2 (08:53→19:57)
[2016-11-19] MEDS: TOPIRAMATE 100 MG TAB PO SCH ×2 (08:54→20:02)
[2016-11-19] MEDS: LISINOPRIL 10 MG TAB PO SCH (08:54)
[2016-11-19] MEDS: SERTRALINE HCL 100 MG TAB PO SCH (08:54)
[2016-11-19] MEDS: ARIPiprazole 5 MG TAB PO SCH (08:54)
[2016-11-19] MEDS: METOCLOPRAMIDE HCL 10 MG/2 ML VIAL IV PUSH PRN (08:55)
--- NOTE | 2016-11-19 09:22 | HHI.PR ---
Subjective Remarks Follow up for abdominal pain/nausea/vomiting/diarrhea and atypical chest pains. The patient states she started vomiting again last night after trying sips of water. She still has diffuse abdominal pains, worse at the epigastric area. Had 1 episode of brown diarrhea. Denies fevers or chills. She has not yet attempted anything by mouth this morning. Required IV morphine and IV Zofran throughout the night. Objective Vitals Vital Signs Date Time Temp Pulse Resp B/P Pulse Ox O2 Delivery O2 Flow Rate FiO2 11/19/16 08:00 98.2 81 18 168/100 100 11/19/16 04:27 98.2 75 18 172/92 96 11/18/16 23:40 97.9 84 18 167/90 95 11/18/16 21:25 90 11/18/16 20:54 96.9 104 18 133/79 100 11/18/16 17:59 99.1 94 20 167/98 100 11/18/16 13:40 112 18 141/85 97 11/18/16 13:30 100 18 126/98 99 11/18/16 13:18 98.9 105 18 130/87 98 11/18/16 12:24 98.1 103 24 178/111 97 I/O 11/18/16 11/18/16 11/18/16 11/19/16 11/19/16 11/19/16 07:00 15:00 23:00 07:00 15:00 23:00 Intake Total 440 ml 360 ml Output Total 150 ml Balance -150 ml 440 ml 360 ml Intake Oral 240 ml 30 ml IV Total 330 ml Other 200 ml Output Emesis 150 ml # Voids 1 2 Result Diagram: 11/18/16 0443 11/18/16 0443 Imaging Last Impressions Chest X-Ray 11/17/16 0000 Signed Impressions: Service Date/Time: Thursday, November 17, 2016 17:08 - CONCLUSION: No acute disease. Left basilar subsegmental atelectasis. Michael Gill MD Abdomen/Pelvis CT 11/17/16 0000 Signed Impressions: Service Date/Time: Thursday, November 17, 2016 19:45 - CONCLUSION: 1. Benign-appearing left ovarian cyst and trace free fluid in the pelvic cul-de-sac. 2. Otherwise chronic findings including innumerable tiny cysts of the liver and scarring of the right lung base. 1. Ebenezer Ron MD Objective Remarks GENERAL: Well-nourished, well-developed middle aged female patient in [facility]. SKIN: Warm and dry. No rash. HEENT: Normocephalic. Atraumatic. Pupils equal and round. No scleral icterus. No injection or drainage. Mucous membranes pink and moist. NECK: Supple. Trachea midline. CARDIOVASCULAR: Regular rate and rhythm. S1, S2 noted. No murmur appreciated. RESPIRATORY: No accessory muscle use. Clear to auscultation. Breath sounds equal bilaterally. GASTROINTESTINAL: Abdomen soft, nondistended, moderate diffuse abdominal tenderness to palpation, worse at the epigastric area. Normoactive bowel sounds x4. MUSCULOSKELETAL: No obvious deformities. Extremities without clubbing, cyanosis , or edema. NEUROLOGICAL: Awake and alert. No obvious cranial nerve deficits. Motor grossly within normal limits. Normal speech. PSYCHIATRIC: Appropriate mood and affect; insight and judgment normal. Medications and IVs Current Medications Medications (Trade) Dose Ordered Sig/Haley Route Start Time Stop Time Status Last Admin (NS 1000 ml Inj) 1,000 ml @ 100 mls/hr Q10H IV 11/17/16 21:07 11/18/16 23:00 (NS Flush) 2 ml UNSCH PRN FLUSH 11/17/16 21:15 11/19/16 06:10 (NS Flush) 2 ml BID FLUSH 11/18/16 09:00 11/18/16 21:40 (Zofran Inj) 4 mg Q6H PRN IVP 11/17/16 21:15 11/19/16 06:10 (Reglan Inj) 5 mg Q6H PRN IV PUSH 11/17/16 21:15 11/19/16 08:55 (Narcan Inj) 0.4 mg UNSCH PRN IV 11/17/16 21:15 Nitroglycerin 0.4 mg 0.4 mg Q5M PRN SL 11/17/16 22:30 11/17/16 22:34 (Protonix Inj/NS Inj) 100 ml @ 10 mls/hr Q10H IV 11/18/16 03:00 11/19/16 05:34 (Abilify) 10 mg DAILY PO 11/18/16 09:00 11/18/16 08:57 (Prinivil) 20 mg DAILY PO 11/18/16 09:00 11/19/16 08:54 (Zoloft) 100 mg DAILY PO 11/18/16 09:00 11/18/16 08:57 (Topamax) 100 mg BID PO 11/18/16 09:00 11/18/16 21:41 (Ambien) 5 mg HS PRN PO 11/18/16 02:00 11/18/16 21:41 (Nolan 5-325 Mg) 1 tab Q4H PRN PO 11/18/16 12:00 (Nolan 7.5-325 Mg) 1 tab Q4H PRN PO 11/18/16 12:00 11/18/16 21:41 (Morphine Inj) 2 mg Q3H PRN IV 11/18/16 12:00 11/19/16 06:11 (Morphine Inj) 4 mg Q3H PRN IV 11/18/16 12:00 Urinary Catheter: No Vascular Central Line Catheter: No A/P Problem List: (1) Abdominal pain ICD Code: R10.9 Status: Acute (2) Intractable nausea and vomiting ICD Code: R11.2 Status: Acute (3) Atypical chest pain ICD Code: R07.89 Status: Acute (4) Anemia ICD Code: D64.9 Status: Chronic Assessment and Plan 36-year-old female with hx of migraine headaches, seizure x 1 not on antiepileptic, chronic chest pain, pneumothorax with chest tube placement 2006 and 2014, ovarian cysts, anxiety, and depression who presented to the ED 2016 for evaluation of chest pain, abdominal pain, nausea, and vomiting. Abdominal pain with intractable Nausea/Vomiting and GIB/Hematemesis/Coffee- Ground Emesis - CT abd/pelvis showed Benign-appearing left ovarian cyst and trace free fluid in the pelvic cul-de-sac; chronic findings including innumerable tiny cysts on the liver and scarring of the right lung base - Supportive treatment with IVF, Pain control with Nolan and IV Morphine prn, and IV Zofran prn, IV Reglan prn. - Gastroccult positive - Continue IV Protonix drip - Gastroenterology consulted - S/p EGD 11/18/16 showed gastritis, otherwise normal, biopsies taken - clear liquid diet with plan to advance as tolerated Atypical chest pain, suspect GI related with recent vomiting as above - CXR with no acute disease; left basilar subsegmental atelectasis noted - ACS ruled out with negative Serial cardiac enzymes and EKGs - Monitor on telemetry, sinus tachy at times however no acute events, d/c tele today Anemia, chronic appears to be iron deficiency anemia based on iron studies done in 2016 - Hemoglobin 9.5 and hematocrit 29.5 - Labs are stable compared to prior visits - Monitor CBC, check iron studies - Consider starting ferrous sulfate 325 mg daily once N/V resolve DVT prophylaxis - SCDs, avoid chemical prophylaxis with GI bleed Discussed with Dr. Swift. Discharge Planning Pending further clinical improvement, hopefully discharge in 1-2 days. Attending Statement The exam, history, and the medical decision-making described in the above note were completed with the assistance of the mid-level provider. I reviewed and agree with the findings presented. I attest that I had a [id number] encounter with the patient on the same day, and personally performed and documented my assessment and findings in the medical record. Problem Qualifiers (1) Intractable nausea and vomiting: Qualified Code: R11.2 - Intractable vomiting with nausea, unspecified vomiting type Cristina Yu PA-C Nov 19, 2016 09:22 Kris Swift MD Nov 20, 2016 08:50
--- NOTE | 2016-11-19 10:57 | HHI.GIFU ---
Subjective Remarks Pt resting in bed, somnolent. Still complaining of n/v, severe abd pain 10/10. She says she still cannot eat or even drink water without having more pain and n/v. She reports emesis with dark red and brown blood. Her RN requested she save the emesis to be examined for blood but pt disposed of all emesis. She had one loose BM last night. Objective Vitals I&O Vital Signs Date Time Temp Pulse Resp B/P Pulse Ox O2 Delivery O2 Flow Rate FiO2 11/19/16 08:00 98.2 81 18 168/100 100 11/19/16 04:27 98.2 75 18 172/92 96 11/18/16 23:40 97.9 84 18 167/90 95 11/18/16 21:25 90 11/18/16 20:54 96.9 104 18 133/79 100 11/18/16 17:59 99.1 94 20 167/98 100 11/18/16 13:40 112 18 141/85 97 11/18/16 13:30 100 18 126/98 99 11/18/16 13:18 98.9 105 18 130/87 98 11/18/16 12:24 98.1 103 24 178/111 97 I/O 11/18/16 11/18/16 11/18/16 11/19/16 11/19/16 11/19/16 07:00 15:00 23:00 07:00 15:00 23:00 Intake Total 440 ml 360 ml Output Total 150 ml Balance -150 ml 440 ml 360 ml Intake Oral 240 ml 30 ml IV Total 330 ml Other 200 ml Output Emesis 150 ml # Voids 1 2 Laboratory Date/Time Procedure Status Source Growth 11/18/16 01:30 Gastric Occult Blood - Final Complete Gastric GASTROCCULT POSITIVE 11/17/16 17:00 Influenza Types A,B Antigen (SINDHU) - Final Complete Nasal Aspirate NEGATIVE FOR FLU A AND B ANTIGEN.... Imaging Last Impressions Chest X-Ray 11/17/16 0000 Signed Impressions: Service Date/Time: Thursday, November 17, 2016 17:08 - CONCLUSION: No acute disease. Left basilar subsegmental atelectasis. Michael Gill MD Abdomen/Pelvis CT 11/17/16 0000 Signed Impressions: Service Date/Time: Thursday, November 17, 2016 19:45 - CONCLUSION: 1. Benign-appearing left ovarian cyst and trace free fluid in the pelvic cul-de-sac. 2. Otherwise chronic findings including innumerable tiny cysts of the liver and scarring of the right lung base. 1. Ebenezer Ron MD Physical Exam HEENT: normocephalic; atraumatic; no jaundice. CHEST: CTA CARDIAC: RRR ABDOMEN: Soft, nondistended, tender on palpation and auscultation with stethoscope; no hepatosplenomegaly; hypoactive bowel sounds are present in all four quadrants. EXTREMITIES: No clubbing, cyanosis, or edema. SKIN: Normal; no rash; no jaundice. SLIVER CUTTER: No focal deficits; alert and oriented times three. Assessment and Plan Plan ASSESSMENT: -Upper GI bleed with coffee-ground emesis. Denies any history of peptic ulcer disease. Does take ibuprofen 1-2 times a day. Rare alcohol use. s/p EGD which was normal except for gastritis likely from vomiting. HH 8.7/ 27.5. Still not tolerating po and reports coffee ground emesis last night. - Anemia, acute blood loss. H&H 8.7/27.5, MCV 67.3, MCHC 31.5. Likely iron deficiency anemia. - Atypical chest pain, status post workup from primary - History of migraines, seizure, spontaneous pneumothorax, anxiety, depression per primary Plan: - await biopsy results - if symptoms persist consider gastric emptying study - clear liquids advance as tolerated - Protonix IV once daily - Supportive care - Further recommendations to follow based on results of above - Pt seen and examined by Dr. Tovar and myself and this note is written on his behalf Rashida Smalls Nov 19, 2016 10:56
[2016-11-19 12:08] LABS: ANION GAP 9 MEQ/L (5-15); BICARBONATE 17.2 MEQ/L (21.0-32.0); BLOOD UREA NITROGEN 6 MG/DL (7-18); CHLORIDE 111 MEQ/L (98-107); FERRITIN 6 NG/ML (8-252); GLOMERULAR FILTRATION RATE 127 ML/MIN (>89); SODIUM (NA) 137 MEQ/L (136-145); TRANSFERRIN IRON PROFILE 384 MG/DL (200-360)
[2016-11-19 12:22] LABS: POTASSIUM 4.2 MEQ/L (3.5-5.1)
[2016-11-19 12:30] VITALS: BP 177/99; PULSE 87; RESP 18; TEMP 98.2; O2SAT 100
[2016-11-19] MEDS: PANTOPRAZOLE SODIUM 40 MG VIAL IV PUSH SCH (12:31)
[2016-11-19] MEDS: SODIUM CHLOR 0.9% 1000 ML INJ 1,000 ML IV SCH ×2 (12:34→21:56)
[2016-11-19 13:10] LABS: AUTOMATED NEUTROPHIL # 7.6 TH/MM3 (1.8-7.7); BASOPHIL # 0.1 TH/MM3 (0-0.2); BASOPHIL % 0.8 % (0.0-2.0); EOSINOPHIL % 0.1 % (0.0-4.0); HEMATOCRIT 30.4 % (35.0-46.0); HEMO FLAGS AUTO DIFF; LYMPH % 16.4 % (9.0-44.0); LYMPHOCYTE # 1.6 TH/MM3 (1.0-4.8); MEAN CELL VOLUME 68.6 FL (80.0-100.0); MEAN CORPUSCULAR HEMOGLOBIN 21.9 PG (27.0-34.0); NEUT % 76.7 % (16.0-70.0); PLATELET COUNT 439 TH/MM3 (150-450); RED BLOOD COUNT 4.43 MIL/MM3 (4.00-5.30); RED CELL DISTRIBUTION WIDTH 23.2 % (11.6-17.2); WHITE BLOOD COUNT 9.9 TH/MM3 (4.0-11.0)
[2016-11-19 13:48] LABS: PLATELET ESTIMATE SMEAR NORMAL (NORMAL); PLATELET MORPHOLOGY ENLARGED (NORMAL); SCAN/DIFF AUTO DIFF CONFIRMED
[2016-11-19] MEDS ORDERED: amLODIPine BESYLATE 5 MG TAB PO ONE (15:00)
[2016-11-19 16:30] VITALS: BP 154/95; PULSE 87; RESP 18; TEMP 98.1; O2SAT 100
[2016-11-19 19:30] VITALS: BP 157/96; PULSE 128; RESP 20; TEMP 99.1; O2SAT 100
[2016-11-20] MEDS: METOCLOPRAMIDE HCL 10 MG/2 ML VIAL IV PUSH PRN ×3 (00:37→20:41)
[2016-11-20] MEDS: SODIUM CHLORIDE 0.9% FLUSH 5 ML FLUSH FLUSH PRN ×3 (00:38→14:17)
[2016-11-20] MEDS: MORPHINE SULFATE 4 MG/ML INJ IV PRN ×4 (00:38→14:16)
[2016-11-20 02:48] VITALS: BP 120/71; PULSE 84; RESP 18; TEMP 98.3; O2SAT 98
[2016-11-20 02:49] VITALS: BP 193/79; PULSE 99; RESP 18; TEMP 97.8; O2SAT 94
[2016-11-20] MEDS: ONDANSETRON HCL 4 MG/2 ML VIAL IVP PRN ×3 (05:50→20:41)
[2016-11-20 07:00] VITALS: BP 117/74; PULSE 103; RESP 18; TEMP 98.1; O2SAT 98
[2016-11-20] MEDS: TOPIRAMATE 100 MG TAB PO SCH ×2 (08:52→20:40)
[2016-11-20] MEDS: ARIPiprazole 5 MG TAB PO SCH (08:53)
[2016-11-20] MEDS: SERTRALINE HCL 100 MG TAB PO SCH (08:53)
[2016-11-20] MEDS: amLODIPine BESYLATE 5 MG TAB PO SCH (08:53)
[2016-11-20] MEDS: LISINOPRIL 10 MG TAB PO SCH (08:53)
[2016-11-20] MEDS: SODIUM CHLORIDE 0.9% FLUSH 5 ML FLUSH FLUSH SCH ×2 (08:53→20:41)
[2016-11-20] MEDS: SODIUM CHLOR 0.9% 1000 ML INJ 1,000 ML IV SCH ×2 (08:54→19:07)
--- NOTE | 2016-11-20 08:58 | HHI.PR ---
Subjective Remarks Follow up for abdominal pain/nausea/vomiting/diarrhea. The patient reports feeling slightly better today, was able to keep down 2 ice cubes, wants to try gatorade. She reports abdominal pain only with palpation, feels sore all over. Denies fevers/chills. Last BM 11/18, described as brown diarrhea. Going for gastric emptying study. The patient reports sometimes at home she gets constipated and doesn't have a BM for 2 weeks. Objective Vitals Vital Signs Date Time Temp Pulse Resp B/P Pulse Ox O2 Delivery O2 Flow Rate FiO2 11/20/16 02:49 97.8 99 18 193/79 94 11/20/16 02:48 98.3 84 18 120/71 98 11/19/16 19:30 99.1 128 20 157/96 100 11/19/16 16:30 98.1 87 18 154/95 100 11/19/16 12:30 98.2 87 18 177/99 100 I/O 11/19/16 11/19/16 11/19/16 11/20/16 11/20/16 11/20/16 07:00 15:00 23:00 07:00 15:00 23:00 Intake Total 300 ml Balance 300 ml IV Total 300 ml Result Diagram: 11/19/16 1021 11/19/16 1021 Imaging Last Impressions Chest X-Ray 11/17/16 0000 Signed Impressions: Service Date/Time: Thursday, November 17, 2016 17:08 - CONCLUSION: No acute disease. Left basilar subsegmental atelectasis. Michael Gill MD Abdomen/Pelvis CT 11/17/16 0000 Signed Impressions: Service Date/Time: Thursday, November 17, 2016 19:45 - CONCLUSION: 1. Benign-appearing left ovarian cyst and trace free fluid in the pelvic cul-de-sac. 2. Otherwise chronic findings including innumerable tiny cysts of the liver and scarring of the right lung base. 1. Ebenezer Ron MD Objective Remarks GENERAL: Well-nourished, well-developed middle aged female patient in [facility]. SKIN: Warm and dry. No rash. HEENT: Normocephalic. Atraumatic. Pupils equal and round. No scleral icterus. No injection or drainage. Mucous membranes pink and moist. NECK: Supple. Trachea midline. CARDIOVASCULAR: Regular rate and rhythm. S1, S2 noted. No murmur appreciated. RESPIRATORY: No accessory muscle use. Clear to auscultation. Breath sounds equal bilaterally. GASTROINTESTINAL: Abdomen soft, nondistended, mild TTP, worse at epigastric, however nontender when distracted and pressing with stethoscope. Normoactive bowel sounds x4. MUSCULOSKELETAL: No obvious deformities. Extremities without clubbing, cyanosis , or edema. NEUROLOGICAL: Awake and alert. No obvious cranial nerve deficits. Motor grossly within normal limits. Normal speech. PSYCHIATRIC: Appropriate mood and affect; insight and judgment normal. Medications and IVs Current Medications Medications (Trade) Dose Ordered Sig/Haley Route Start Time Stop Time Status Last Admin (NS 1000 ml Inj) 1,000 ml @ 100 mls/hr Q10H IV 11/17/16 21:07 11/19/16 21:56 (NS Flush) 2 ml UNSCH PRN FLUSH 11/17/16 21:15 11/20/16 05:50 (NS Flush) 2 ml BID FLUSH 11/18/16 09:00 11/19/16 19:57 (Zofran Inj) 4 mg Q6H PRN IVP 11/17/16 21:15 11/20/16 05:50 (Reglan Inj) 5 mg Q6H PRN IV PUSH 11/17/16 21:15 11/20/16 00:37 (Narcan Inj) 0.4 mg UNSCH PRN IV 11/17/16 21:15 (Nitrostat Sl) 0.4 mg Q5M PRN SL 11/17/16 22:30 11/17/16 22:34 (Abilify) 10 mg DAILY PO 11/18/16 09:00 11/18/16 08:57 (Prinivil) 20 mg DAILY PO 11/18/16 09:00 11/19/16 08:54 (Zoloft) 100 mg DAILY PO 11/18/16 09:00 11/18/16 08:57 (Topamax) 100 mg BID PO 11/18/16 09:00 11/18/16 21:41 (Ambien) 5 mg HS PRN PO 11/18/16 02:00 11/18/16 21:41 (Barto 5-325 Mg) 1 tab Q4H PRN PO 11/18/16 12:00 (Barto 7.5-325 Mg) 1 tab Q4H PRN PO 11/18/16 12:00 11/18/16 21:41 (Morphine Inj) 2 mg Q3H PRN IV 11/18/16 12:00 11/20/16 05:51 (Morphine Inj) 4 mg Q3H PRN IV 11/18/16 12:00 (Protonix Inj) 40 mg Q24H IV PUSH 11/19/16 12:00 11/19/16 12:31 (Norvasc) 5 mg DAILY PO 11/20/16 09:00 A/P Problem List: (1) Abdominal pain ICD Code: R10.9 Status: Acute (2) Intractable nausea and vomiting ICD Code: R11.2 Status: Acute (3) Atypical chest pain ICD Code: R07.89 Status: Acute (4) Anemia ICD Code: D64.9 Status: Chronic Assessment and Plan 36-year-old female with hx of migraine headaches, seizure x 1 not on antiepileptic, chronic chest pain, pneumothorax with chest tube placement 2006 and 2014, ovarian cysts, anxiety, and depression who presented to the ED 2016 for evaluation of chest pain, abdominal pain, nausea, and vomiting. Abdominal pain with intractable Nausea/Vomiting and GIB/Hematemesis/Coffee- Ground Emesis - CT abd/pelvis showed Benign-appearing left ovarian cyst and trace free fluid in the pelvic cul-de-sac; chronic findings including innumerable tiny cysts on the liver and scarring of the right lung base - Supportive treatment with IVF, Pain control with Barto and IV Morphine prn, and IV Zofran prn, IV Reglan prn. - Gastroccult positive - Gastroenterology consulted - S/p EGD 11/18/16 showed gastritis, otherwise normal, biopsies taken - Change IV Protonix drip to IV Protonix bid - clear liquid diet with plan to advance as tolerated - Gastric emptying study today Atypical chest pain, suspect GI related with recent vomiting as above - CXR with no acute disease; left basilar subsegmental atelectasis noted - ACS ruled out with negative Serial cardiac enzymes and EKGs - Monitor on telemetry, sinus tachy at times however no acute events, d/c tele Anemia, chronic appears to be iron deficiency anemia based on iron studies done in 2016 - Hemoglobin 9.5 and hematocrit 29.5 - Labs are stable compared to prior visits - Monitor CBC, iron studies consistent with iron deficiency - Plan to start ferrous sulfate 325 mg daily once N/V resolve DVT prophylaxis - SCDs, avoid chemical prophylaxis with GI bleed Discussed with Dr. Swift. Discharge Planning Pending further clinical improvement, hopefully discharge today or tomorrow. Problem Qualifiers (1) Intractable nausea and vomiting: Qualified Code: R11.2 - Intractable vomiting with nausea, unspecified vomiting type Cristina Yu PA-C Nov 20, 2016 08:58
--- NOTE | 2016-11-20 09:38 | HHI.GIFU ---
Subjective Remarks She is sitting up in bed, chatting with visitors. She says she is thirsty and hungry but still has nausea and abdominal pain. She threw up last night, no blood. SHe last had a BM 2d ago. (Rashida Smalls) Objective Vitals I&O Vital Signs Date Time Temp Pulse Resp B/P Pulse Ox O2 Delivery O2 Flow Rate FiO2 11/20/16 07:00 98.1 103 18 117/74 98 11/20/16 02:49 97.8 99 18 193/79 94 11/20/16 02:48 98.3 84 18 120/71 98 11/19/16 19:30 99.1 128 20 157/96 100 11/19/16 16:30 98.1 87 18 154/95 100 11/19/16 12:30 98.2 87 18 177/99 100 I/O 11/19/16 11/19/16 11/19/16 11/20/16 11/20/16 11/20/16 07:00 15:00 23:00 07:00 15:00 23:00 Intake Total 300 ml Balance 300 ml IV Total 300 ml Laboratory Laboratory Tests Test 11/19/16 10:21 White Blood Count 9.9 Red Blood Count 4.43 Hemoglobin 9.7 Hematocrit 30.4 Mean Corpuscular Volume 68.6 Mean Corpuscular Hemoglobin 21.9 Mean Corpuscular Hemoglobin 32.0 Concent Red Cell Distribution Width 23.2 Platelet Count 439 Mean Platelet Volume 9.6 Neutrophils (%) (Auto) 76.7 Lymphocytes (%) (Auto) 16.4 Monocytes (%) (Auto) 6.0 Eosinophils (%) (Auto) 0.1 Basophils (%) (Auto) 0.8 Neutrophils # (Auto) 7.6 Lymphocytes # (Auto) 1.6 Monocytes # (Auto) 0.6 Eosinophils # (Auto) 0.0 Basophils # (Auto) 0.1 CBC Comment AUTO DIFF Differential Comment AUTO DIFF CONFIRMED Platelet Estimate NORMAL Platelet Morphology Comment ENLARGED Sodium Level 137 Potassium Level 4.2 Chloride Level 111 Carbon Dioxide Level 17.2 Anion Gap 9 Blood Urea Nitrogen 6 Creatinine 0.64 Estimat Glomerular Filtration 127 Rate Random Glucose 93 Calcium Level 8.6 Iron Level 27 Total Iron Binding Capacity 538 Percent Iron Saturation 5.0 Ferritin 6 Beta HCG, Qualitative LESS THAN 1 Date/Time Procedure Status Source Growth 11/18/16 01:30 Gastric Occult Blood - Final Complete Gastric GASTROCCULT POSITIVE 11/17/16 17:00 Influenza Types A,B Antigen (SINDHU) - Final Complete Nasal Aspirate NEGATIVE FOR FLU A AND B ANTIGEN.... Imaging Last Impressions Chest X-Ray 11/17/16 0000 Signed Impressions: Service Date/Time: Thursday, November 17, 2016 17:08 - CONCLUSION: No acute disease. Left basilar subsegmental atelectasis. Michael Gill MD Abdomen/Pelvis CT 11/17/16 0000 Signed Impressions: Service Date/Time: Thursday, November 17, 2016 19:45 - CONCLUSION: 1. Benign-appearing left ovarian cyst and trace free fluid in the pelvic cul-de-sac. 2. Otherwise chronic findings including innumerable tiny cysts of the liver and scarring of the right lung base. 1. Ebenezer Ron MD Physical Exam HEENT: normocephalic; atraumatic; no jaundice. CHEST: CTA CARDIAC: RRR ABDOMEN: Soft, nondistended, tender on palpation and auscultation with stethoscope; no hepatosplenomegaly; hypoactive bowel sounds are present in all four quadrants. EXTREMITIES: No clubbing, cyanosis, or edema. SKIN: Normal; no rash; no jaundice. INTELLIGENCE AGENT: No focal deficits; alert and oriented times three. (Rashida Smlals) Assessment and Plan Plan ASSESSMENT: -Upper GI bleed with coffee-ground emesis. Denies any history of peptic ulcer disease. Does take ibuprofen 1-2 times a day. Rare alcohol use. s/p EGD which was normal except for gastritis likely from vomiting. HH 8.7/ 27.5. Still not tolerating po. Denies any blood in emesis yesterday, has not thrown up today . - Iron deficiency Anemia, acute blood loss. H&H stable 9.7/20.4, WBC 9.9. Iron 27, TIBC 538, Ferritin 6. Gastric emptying study today. - Atypical chest pain, status post workup from primary - History of migraines, seizure, spontaneous pneumothorax, anxiety, depression per primary Plan: - Gastric emptying study, await results - NPO for gastric emptying scan - await biopsy results - Protonix IV once daily - Supportive care - Further recommendations to follow based on results of above - Pt seen and examined by Dr. Tovar and myself and this note is written on his behalf (Rashida Smalls) Physician Comments Patient was seen and examined, agree with above note, Gastric empting study is normal, Ok to advance diet to regular, ok to DC home from GI, FU as outpatient if needed. (Perla Tovar MD) Rashida Smalls Nov 20, 2016 09:38 Perla Tovar MD Nov 20, 2016 18:02
[2016-11-20] MEDS: PANTOPRAZOLE SODIUM 40 MG VIAL IV PUSH SCH (12:00)
--- NOTE | 2016-11-20 13:32 | RADRPT ---
EXAM DATE/TIME: 11/20/2016 11:08 [facility] COMPARISON: No previous studies available for comparison. INDICATIONS : Abdominal pain with nausea and vomiting. DOSE: 1.0 mCi Tc99m Sulfur Colloid Labeled Whole egg PO MEDICATONS: 1.) 5 mg Reglan IV at 90 minutes IMAGIN hrs MEDICAL HISTORY : Hypertension. SURGICAL HISTORY : section. Tubal ligation. ENCOUNTER: Initial ACUITY: 3 days PAIN SCALE: 10/10 LOCATION: Abdomen. TECHNIQUE: Following the oral ingestion of radiotracer-labeled meal, dynamic sequential images in the [place] projec tion were acquired with simultaneous computer acquisition. The data set was decay-corrected. FINDINGS: LAG PHASE: There is 5 minutes before onset of gastric emptying. EMPTYING: Gastric emptying kinetics are linear. The decay-corrected, back-extrapolated half-time of emptying i s 84 minutes. (Normal for this lab is 45- 90 minutes.) INTERVENTION: Reglan at 90 minutes. Stomach increased emptying. CONCLUSION: Exam is within normal limits. No significant delayed gastric emptying. Increased emptying following R eglan. Rome Azul MD on November 20, 2016 at 13:27 Board Certified Radiologist. This report was verified electronically.
[2016-11-20 14:09] VITALS: BP 129/83; PULSE 101; RESP 18; TEMP 98.2; O2SAT 99
[2016-11-20 16:00] VITALS: BP 143/87; PULSE 80; RESP 22; TEMP 97.8; O2SAT 100
[2016-11-20 16:51] LABS: BICARBONATE 18.9 MEQ/L (21.0-32.0); POTASSIUM 3.5 MEQ/L (3.5-5.1)
[2016-11-20] MEDS: ACETAMINOPHEN/HYDROcodone 325 MG/7.5 MG TAB PO PRN (18:54)
[2016-11-20] MEDS ORDERED: SUMAtriptan SUCCINATE 50 MG TAB PO PRN (21:15)
[2016-11-21 00:10] VITALS: BP 111/71; PULSE 91; RESP 16; TEMP 98.2; O2SAT 99
[2016-11-21] MEDS: SODIUM CHLOR 0.9% 1000 ML INJ 1,000 ML IV SCH (05:07)
[2016-11-21 08:00] VITALS: BP 115/63; PULSE 90; RESP 19; TEMP 98.5; O2SAT 99
[2016-11-21] MEDS: ARIPiprazole 5 MG TAB PO SCH (08:49)
[2016-11-21] MEDS: amLODIPine BESYLATE 5 MG TAB PO SCH (08:49)
[2016-11-21] MEDS: LISINOPRIL 10 MG TAB PO SCH (08:49)
[2016-11-21] MEDS: TOPIRAMATE 100 MG TAB PO SCH (08:49)
[2016-11-21] MEDS: SERTRALINE HCL 100 MG TAB PO SCH (08:49)
[2016-11-21] MEDS: METOCLOPRAMIDE HCL 10 MG/2 ML VIAL IV PUSH PRN (08:50)
[2016-11-21] MEDS: ACETAMINOPHEN/HYDROcodone 325 MG/7.5 MG TAB PO PRN ×2 (08:51→14:18)
[2016-11-21] MEDS: SODIUM CHLORIDE 0.9% FLUSH 5 ML FLUSH FLUSH SCH (08:52)
[2016-11-21 12:00] VITALS: BP 123/67; PULSE 88; RESP 19; TEMP 98.7; O2SAT 100
[2016-11-21] MEDS: PANTOPRAZOLE SODIUM 40 MG VIAL IV PUSH SCH (12:27)
[2016-11-21] MEDS ORDERED: AMLO5 PO (13:24)
[2016-11-21] MEDS ORDERED: OMEP40CA2 PO (13:24)
[2016-11-21] MEDS ORDERED: HYDR-3516 PO (13:24)
[2016-11-21] MEDS ORDERED: FERR325T PO (15:48)
--- NOTE | 2016-11-21 15:48 | HHI.DS ---
Discharge Summary Admission Date Nov 17, 2016 at 9:08 pm Discharge Date: Nov 21, 2016 Admitting Diagnosis intractable nausea/vomiting (1) Hematemesis ICD Code: K92.0 Diagnosis: Principal (2) Gastritis ICD Code: K29.70 Diagnosis: Principal (3) Abdominal pain ICD Code: R10.9 Diagnosis: Principal (4) Intractable nausea and vomiting ICD Code: R11.2 Diagnosis: Principal (5) Atypical chest pain ICD Code: R07.89 Diagnosis: Secondary (6) Anemia ICD Code: D64.9 Diagnosis: Secondary Procedures EGD 11/18/16 showed gastritis, otherwise normal, biopsies taken Brief History - From Admission Ms. Armstrong is a 36-year-old female with past medical history of migraine headaches, seizure x 1 not on antiepileptic drug therapy, chronic chest pain, pneumothorax with chest tube placement 2006 and 2014, ovarian cysts, anxiety, and depression who presented to the emergency room on 11/17/2016 for evaluation of chest pain, abdominal pain, nausea, and vomiting. The patient is seen in her room and states that around 3:00 in the morning yesterday she began to have diarrhea followed by abdominal pain with nausea and vomiting. Vomit was initially colored yellow or clear and is now brown. Vomitus is in an emesis basis and at the bedside and appears like coffee- grounds. Patient also reports having red diarrhea and upon further questioning , states she has streaks of red on the toilet paper after wiping. She denies any fever. States abdominal pain is severe and located in both upper and lower abdomen. She denies any recent antibiotic therapy. She complains of feeling fatigued and tired. She also complains of chest pain coming from the sides and associated with vomiting. She denies any associated shortness of breath, syncope, or palpitations. She denies any dysuria or hematuria. She does complain of some dizziness intermittently causing her to sit down because she doesn't want to walk when she is dizzy. She reports she had a similar symptoms to this about a week ago and they lasted for 4 days. Denies diabetes, coronary artery disease, congestive heart failure, atrial fibrillation, asthma, COPD, emphysema, hepatitis, cirrhosis, kidney problems, thyroid dysfunction, cancer, or problems with blood clots such as DVT, PE, or CVA. . CBC/BMP: 11/19/16 1021 11/20/16 1607 Significant Findings Laboratory Tests Test 11/19/16 11/20/16 10:21 16:07 Hemoglobin 9.7 GM/DL (11.6-15.3) Hematocrit 30.4 % (35.0-46.0) Mean Corpuscular Volume 68.6 FL (80.0-100.0) Mean Corpuscular Hemoglobin 21.9 PG (27.0-34.0) Red Cell Distribution Width 23.2 % (11.6-17.2) Neutrophils (%) (Auto) 76.7 % (16.0-70.0) Platelet Morphology Comment ENLARGED (NORMAL) Chloride Level 111 MEQ/L 112 MEQ/L (98-107) (98-107) Carbon Dioxide Level 17.2 MEQ/L 18.9 MEQ/L (21.0-32.0) (21.0-32.0) Blood Urea Nitrogen 6 MG/DL (7-18) Iron Level 27 MCG/DL (50-170) Total Iron Binding Capacity 538 MCG/DL (250-450) Percent Iron Saturation 5.0 % (20-50) Ferritin 6 NG/ML (8-252) Imaging Last Impressions Gastric Emptying Nuclear Medicine 11/20/16 0600 Signed Impressions: Service Date/Time: Sunday, November 20, 2016 11:08 - CONCLUSION: Exam is within normal limits. No significant delayed gastric emptying. Increased emptying following Reglan. Rome Azul MD Chest X-Ray 11/17/16 0000 Signed Impressions: Service Date/Time: Thursday, November 17, 2016 17:08 - CONCLUSION: No acute disease. Left basilar subsegmental atelectasis. Michael Gill MD Abdomen/Pelvis CT 11/17/16 0000 Signed Impressions: Service Date/Time: Thursday, November 17, 2016 19:45 - CONCLUSION: 1. Benign-appearing left ovarian cyst and trace free fluid in the pelvic cul-de-sac. 2. Otherwise chronic findings including innumerable tiny cysts of the liver and scarring of the right lung base. 1. Ebenezer Ron MD PE at Discharge GENERAL: Well-nourished, well-developed middle aged female patient in [facility]. SKIN: Warm and dry. No rash. HEENT: Normocephalic. Atraumatic. Pupils equal and round. No scleral icterus. No injection or drainage. Mucous membranes pink and moist. NECK: Supple. Trachea midline. CARDIOVASCULAR: Regular rate and rhythm. S1, S2 noted. No murmur appreciated. RESPIRATORY: No accessory muscle use. Clear to auscultation. Breath sounds equal bilaterally. GASTROINTESTINAL: Abdomen soft, nondistended, nontender. Normoactive bowel sounds x4. MUSCULOSKELETAL: No obvious deformities. Extremities without clubbing, cyanosis , or edema. NEUROLOGICAL: Awake and alert. No obvious cranial nerve deficits. Motor grossly within normal limits. Normal speech. PSYCHIATRIC: Appropriate mood and affect; insight and judgment normal. Pt update on day of discharge Follow-up for abdominal pain/nausea/vomiting/diarrhea with gastritis and hematemesis. The patient reports feeling much better today. She has tolerated small amounts of oral intake without any nausea or vomiting. Still has some epigastric discomfort, relieved by pain medication. No further episodes of diarrhea. She wants to go home. She has been cleared for discharge by GI. Hospital Course 36-year-old female with hx of migraine headaches, seizure x 1 not on antiepileptic, chronic chest pain, pneumothorax with chest tube placement 2006 and 2014, ovarian cysts, anxiety, and depression who presented to the ED 2016 for evaluation of chest pain, abdominal pain, nausea, and vomiting. Abdominal pain with intractable Nausea/Vomiting and GIB/Hematemesis/Coffee- Ground Emesis - CT abd/pelvis showed Benign-appearing left ovarian cyst and trace free fluid in the pelvic cul-de-sac; chronic findings including innumerable tiny cysts on the liver and scarring of the right lung base - Given Supportive treatment with IVF, Pain control with [place] and IV Morphine prn, and IV Zofran prn, IV Reglan prn. - Gastroccult positive - Gastroenterology consulted, S/p EGD 11/18/16 showed gastritis, otherwise normal , biopsies taken - Changed IV Protonix drip to IV Protonix bid - Gastric emptying study 11/20 unremarkable - clear liquid diet, advanced to regular last night by GI, patient tolerating small amounts. - discharged on PPI Atypical chest pain, suspect GI related with recent vomiting as above - CXR with no acute disease; left basilar subsegmental atelectasis noted - ACS ruled out with negative Serial cardiac enzymes and EKGs - Monitor on telemetry, sinus tachy at times however no acute events, d/c tele - no further chest pains. Anemia, chronic appears to be iron deficiency anemia based on iron studies done in 2016 - Hemoglobin 9.5 and hematocrit 29.5 - Labs are stable compared to prior visits - Monitor CBC, iron studies consistent with iron deficiency - Start ferrous sulfate 325 mg daily once N/V resolve DVT prophylaxis - SCDs, avoid chemical prophylaxis with GI bleed Written by Cristina Yu, acting as scribe for Dr. Swift on 11/21/16 at 13: 30. The documentation accurately reflects the work performed [id number] by me, Dr. Swift on 11/21/16 at 13:30. Pt Condition on Discharge: Good Discharge Disposition: Discharge Home Discharge Time: <= 30 minutes Discharge Instructions DIET: Follow Instructions for: Heart Healthy Diet Activities you can perform: Regular-No Restrictions Follow up Referrals: Gastroenterology - 2 Weeks PCP Follow-up - 1 Week New Medications: Ferrous Sulfate (Ferrous Sulfate) 325 Mg Tab 325 MG PO DAILY Nutritional Supplement #30 Ref 0 TAB Omeprazole (Omeprazole) 40 Mg Cap 40 MG PO DAILY Reflux #30 Ref 0 CAP Amlodipine (Norvasc) 5 Mg Tab 5 MG PO DAILY Blood Pressure Management Days 30 TAB Hydrocodone-Acetaminophen (Hydrocodone-Acetaminophen) 5-325 mg Tab 1 TAB PO Q4H PRN PAIN SCALE 1 TO 10 #10 TAB Continued Medications: Aripiprazole (Abilify) 5 Mg Tab 10 MG PO DAILY #30 Ref 0 TAB Clonidine (Clonidine) 0.1 Mg Tab 0.1 MG PO DAILY PRN Blood Pressure Management #30 Ref 6 TAB Lisinopril (Lisinopril) 10 Mg Tab 20 MG PO DAILY #30 Ref 0 TAB Norethindrone-Ethinyl Estradiol (Loestrin .02/23) 1.5-30 Mg-Mcg Tab 1 TAB PO DAILY Control #1 Ref 0 PACK Sertraline (Sertraline) 100 Mg Tab 100 MG PO DAILY #30 Ref 6 TAB Topiramate (Topamax) 100 Mg Tab 100 MG PO BID Control Seizures #60 Ref 0 TAB Zolpidem (Ambien) 10 Mg Tab 5 MG PO HS PRN INSOMNIA #31 Ref 3 TAB Discontinued Medications: Omeprazole (Omeprazole) 20 Mg Tab 20 MG PO DAILY #30 Ref 6 TAB Additional Information The documentation accurately reflects the work performed [id number] by me, Dr. Swift on 11/21/16 at 13:30. Cristina Yu PA-C Nov 21, 2016 15:48 Kris Swift MD Nov 23, 2016 03:14
[2016-11-22] MEDS ORDERED: CARA1TAB6 PO (05:30)
[2016-11-22] MEDS ORDERED: BENT20TA PO (05:30)
[2016-11-22] MEDS ORDERED: POTA10CA PO (05:31)
== END 2016-11-21 16:21 | disposition home or self-care (01) ==
LOC: NEPC 16:37 → NEDA 21:08 → NEPGCP 21:50 → N06A 11-20 14:00
PROVIDERS: ADMIT Internal Medicine; ATTEND Internal Medicine
DX: K52.9 Noninfective gastroenteritis and colitis, unspecified (principal); I10 Essential (primary) hypertension; R56.9 Unspecified convulsions; F41.9 Anxiety disorder, unspecified; D57.1 Sickle-cell disease without crisis; F17.210 Nicotine dependence, cigarettes, uncomplicated; Z79.899 Other long term (current) drug therapy; N83.202 Unspecified ovarian cyst, left side; J98.11 Atelectasis; K76.89 Other specified diseases of liver; R00.0 Tachycardia, unspecified; R42 Dizziness and giddiness; R53.83 Other fatigue; J93.83 Other pneumothorax; G43.909 Migraine, unspecified, not intractable, without status migrainosus; R07.89 Other chest pain; D50.9 Iron deficiency anemia, unspecified; K29.70 Gastritis, unspecified, without bleeding
CPT/HCPCS: 00740; 43239; 71010; 74177; 78264; 80048; 80053; 81001; 82270; 82550; 82728; 83540; 83550; 83690; 83735; 84484; 84703; 85007; 85025; 85027; 87804; 88305; 88312; 93005; 96361; 96372; 96374; 96375; 96376; 99285; A9541; C9113; G0378; J1200; J2270; J2405; J2550; J2765; J3475; J3480; J7030; J7120; Q9967; 76937

== ENCOUNTER 2016-11-22 03:51 | Emergency (ER) | payer MEDICAID ==
[~2016-11-22] VITALS: Ht 152.4 cm; Wt 79.5 kg
[~2016-11-22 03:51] MED LIST changes: +AMLO5 PO; +FERR325T PO; +HYDR-3516 PO; +OMEP40CA2 PO
[2016-11-22 03:53] VITALS: BP 167/89; PULSE 120; RESP 18; TEMP 97.8; O2SAT 99
[2016-11-22] MEDS ORDERED: SODIUM CHLOR 0.9% 1000 ML INJ 1,000 ML IV SCH (04:16)
--- NOTE | 2016-11-22 04:24 | PD ---
HPI Chief Complaint: Abdominal Pain Time Seen by Provider: 04:07 Travel History International Travel<30 days: No Contact w/Intl Traveler<30days: No Traveled to known affect area: No History of Present Illness HPI 36 years old female complains of abdominal pain with nausea vomiting. Patient was admitted November 17 and discharged November 21 for abdominal pain with nausea vomiting. CT scan abdomen pelvis negative acute pathology. Patient had endoscopy done which showed gastritis. Patient had normal gastric emptying study. Patient was discharged yesterday. Patient states that she started having abdominal pain with nausea vomiting again tonight and came back to the ED. Patient stated the pain severe cramping pain and sharp pain diffuse over the abdomen. Patient denies any pain radiation. Patient denies any fever chills. Patient denies any dysuria frequency. Patient denies any vaginal discharge or bleeding. On a scale from 1-10 the pain is a 10. PFSH Past Medical History Hx Anticoagulant Therapy: No Anxiety: Yes Depression: Yes Cancer: No Cardiovascular Problems: No High Cholesterol: No Chemotherapy: No Chest Pain: Yes (CHRONIC FOR 3 YEARS) Cerebrovascular Accident: No Diabetes: No Diminished Hearing: No Endocrine: No Genitourinary: Yes Headaches: Yes Hypertension: Yes Immune Disorder: No Musculoskeletal: Yes Neurologic: Yes Psychiatric: Yes Reproductive: No Respiratory: Yes (HX OF PNEUMOTHORACES) Integumentary: Yes Immunizations Current: Yes Migraines: Yes Seizures: Yes (ONCE, NOT ON MEDS) Sickle Cell Disease: Yes (TRAIT) ?: Not : 9 Para: 9 Miscarriage: 0 : 0 Ovarian Cysts: Yes Tubal Ligation: Yes Past Surgical History Cardiac Surgery: Yes (CHEST TUBE 2006) Section: Yes (02/13/2010 X 1) Gynecologic Surgery: Yes () Thoracic Surgery: Yes (PNEUMOTHORAX) Other Surgery: Yes (right chest tube in aug 03 FOR SPONT. PNEUMOTHORAX) Social History Alcohol Use: No (pt. denies) Tobacco Use: Yes (1-2 CIGS/DAY) Substance Use: Yes (MARIJUANA OCCASIONALLY) Allergies-Medications (Allergen,Severity, Reaction): Coded Allergies: No Known Allergies (Verified , 11/22/16) Reported Meds & Prescriptions Reported Meds & Active Scripts Active Ferrous Sulfate 325 Mg Tab 325 Mg PO DAILY Omeprazole 40 Mg Cap 40 Mg PO DAILY Hydrocodone-Acetaminophen 5-325 mg Tab 1 Tab PO Q4H PRN Norvasc (Amlodipine Besylate) 5 Mg Tab 5 Mg PO DAILY 30 Days Sertraline (Sertraline HCl) 100 Mg Tab 100 Mg PO DAILY Clonidine (Clonidine HCl) 0.1 Mg Tab 0.1 Mg PO DAILY PRN Ambien (Zolpidem Tartrate) 10 Mg Tab 5 Mg PO HS PRN Reported Topamax (Topiramate) 100 Mg Tab 100 Mg PO BID Lisinopril 10 Mg Tab 20 Mg PO DAILY Abilify (Aripiprazole) 5 Mg Tab 10 Mg PO DAILY Loestrin 1.5/30 (Norethindrone-Ethinyl Estradiol) 1.5-30 Mg-Mcg Tab 1 Tab PO DAILY Review of Systems General / Constitutional: No: Fever Eyes: No: Visual changes HENT: No: Headaches Cardiovascular: No: Chest Pain or Discomfort Respiratory: No: Shortness of Breath Gastrointestinal: Positive: Nausea, Vomiting, Abdominal Pain Genitourinary: No: Dysuria Musculoskeletal: No: Pain Skin: No Rash Neurologic: No: Weakness Psychiatric: No: Depression Endocrine: No: Polydipsia Hematologic/Lymphatic: No: Easy Bruising Physical Exam Narrative GENERAL: Well-nourished, well-developed patient. SKIN: Warm and dry. HEAD: Normocephalic. EYES: No scleral icterus. No injection or drainage. NECK: Supple, trachea midline. No JVD or lymphadenopathy. CARDIOVASCULAR: Regular rate and rhythm without murmurs, gallops, or rubs. RESPIRATORY: Breath sounds equal bilaterally. No accessory muscle use. GASTROINTESTINAL: Abdomen soft, nondistended. Patient has moderate tenderness on palpation of the abdomen. No rebound tenderness. No mass. MUSCULOSKELETAL: No cyanosis, or edema. BACK: Nontender without obvious deformity. No CVA tenderness. Neurologic exam normal. Data Data Last Documented VS Vital Signs Date Time Temp Pulse Resp B/P Pulse Ox O2 Delivery O2 Flow Rate FiO2 11/22/16 03:53 97.8 120 18 167/89 99 Room Air Orders Complete Blood Count With Diff (11/22/16 04:16) Comprehensive Metabolic Panel (11/22/16 04:16) Lipase (11/22/16 04:16) Iv Access Insert/Monitor (11/22/16 04:16) Ecg Monitoring (11/22/16 04:16) Oximetry (11/22/16 04:16) Pantoprazole Inj (Protonix Inj) (11/22/16 04:30) Sodium Chlor 0.9% 1000 Ml Inj (Ns 1000 M (11/22/16 04:16) Dicyclomine Inj (Bentyl Inj) (11/22/16 04:30) Metoclopramide Inj (Reglan Inj) (11/22/16 04:30) Diphenhydramine Inj (Benadryl Inj) (11/22/16 04:30) Labs Laboratory Tests Test 11/22/16 04:15 White Blood Count 13.3 TH/MM3 Red Blood Count 4.94 MIL/MM3 Hemoglobin 10.3 GM/DL Hematocrit 33.5 % Mean Corpuscular Volume 67.7 FL Mean Corpuscular Hemoglobin 20.9 PG Mean Corpuscular Hemoglobin 30.8 % Concent Red Cell Distribution Width 23.3 % Platelet Count 587 TH/MM3 Mean Platelet Volume 8.2 FL Neutrophils (%) (Auto) 84.9 % Lymphocytes (%) (Auto) 9.4 % Monocytes (%) (Auto) 4.8 % Eosinophils (%) (Auto) 0.2 % Basophils (%) (Auto) 0.7 % Neutrophils # (Auto) 11.3 TH/MM3 Lymphocytes # (Auto) 1.3 TH/MM3 Monocytes # (Auto) 0.6 TH/MM3 Eosinophils # (Auto) 0.0 TH/MM3 Basophils # (Auto) 0.1 TH/MM3 CBC Comment AUTO DIFF Sodium Level 139 MEQ/L Potassium Level 3.3 MEQ/L Chloride Level 108 MEQ/L Carbon Dioxide Level 18.9 MEQ/L Anion Gap 12 MEQ/L Blood Urea Nitrogen 10 MG/DL Creatinine 1.10 MG/DL Estimat Glomerular Filtration 68 ML/MIN Rate Random Glucose 144 MG/DL Calcium Level 9.1 MG/DL Total Bilirubin 0.6 MG/DL Aspartate Amino Transf 13 U/L (AST/SGOT) Alanine Aminotransferase 17 U/L (ALT/SGPT) Alkaline Phosphatase 51 U/L Total Protein 9.0 GM/DL Albumin 4.3 GM/DL Lipase 136 U/L [facility] Medical Decision Making Medical Screen Exam Complete: Yes Emergency Medical Condition: Yes Interpretation(s) 5:41 AM. CBC WBC 13.3. Hemoglobin 10.3. Hematocrit 33.5. MCV 67.7. Platelet 587. 84 neutrophil. Potassium 3.3. Bicarbonate 18.9. Creatinine 1.1. Differential Diagnosis Differential diagnosis including gastritis, PUD, pancreatitis, cholecystitis, colitis, UTI, pyelonephritis. Narrative Course 36 years old female with recurrent abdominal pain, nausea vomiting. Patient was admitted and had full workup and discharged yesterday. Normal saline solution 1 L IV bolus. Protonix 40 mg IV. Reglan 10 mg IV. Benadryl 50 mg IV. Bentyl 20 mg IM. Diagnosis Primary Impression: Recurrent abdominal pain Additional Impression: Gastritis Qualified Code: K29.50 - Chronic gastritis without bleeding, unspecified gastritis type Patient Instructions: General Instructions Additional Instructions: Take medications as directed. Follow-up with local physician. Return if persistent problem or worse. Med/Other Pt SpecificInfo: Prescription(s) given Scripts Potassium Chloride ER 10 Meq Cap10 Meq PO DAILY #6 CAP Ref 0 Prov:Ed Wells MD 11/22/16 Dicyclomine (Bentyl)20 Mg Tab20 Mg PO TID #30 TAB Ref 0 Prov:Ed Wells MD 11/22/16 Sucralfate (Carafate)1 Gm Tab1 Gm PO QID #120 TAB On empty stomach Prov:Ed Wells MD 11/22/16 Disposition: 01 DISCHARGE HOME Condition: Stable Ed Wells MD Nov 22, 2016 04:24
[2016-11-22] MEDS ORDERED: METOCLOPRAMIDE HCL 10 MG/2 ML VIAL IV PUSH ONE (04:30)
[2016-11-22] MEDS ORDERED: diphenhydrAMINE HCL 50 MG/ML VIAL IV PUSH ONE (04:30)
[2016-11-22] MEDS ORDERED: DICYCLOMINE HCL 20 MG/2 ML VIAL IM ONE (04:30)
[2016-11-22] MEDS ORDERED: PANTOPRAZOLE SODIUM 40 MG VIAL IVP ONE (04:30)
[2016-11-22 04:47] LABS: AUTOMATED NEUTROPHIL # 11.3 TH/MM3 (1.8-7.7); BASOPHIL # 0.1 TH/MM3 (0-0.2); BASOPHIL % 0.7 % (0.0-2.0); EOSINOPHIL % 0.2 % (0.0-4.0); HEMATOCRIT 33.5 % (35.0-46.0); LYMPH % 9.4 % (9.0-44.0); LYMPHOCYTE # 1.3 TH/MM3 (1.0-4.8); MEAN CELL VOLUME 67.7 FL (80.0-100.0); MEAN CORPUSCULAR HEMOGLOBIN 20.9 PG (27.0-34.0); MEAN CORPUSCULAR HGB CONC 30.8 % (32.0-36.0); MONO % 4.8 % (0.0-8.0); NEUT % 84.9 % (16.0-70.0); PLATELET COUNT 587 TH/MM3 (150-450); RED BLOOD COUNT 4.94 MIL/MM3 (4.00-5.30); RED CELL DISTRIBUTION WIDTH 23.3 % (11.6-17.2); WHITE BLOOD COUNT 13.3 TH/MM3 (4.0-11.0)
[2016-11-22 05:00] LABS: ALT (GPT) 17 U/L (10-53); ANION GAP 12 MEQ/L (5-15); AST (GOT) 13 U/L (15-37); BICARBONATE 18.9 MEQ/L (21.0-32.0); BLOOD UREA NITROGEN 10 MG/DL (7-18); CHLORIDE 108 MEQ/L (98-107); GLOMERULAR FILTRATION RATE 68 ML/MIN (>89); POTASSIUM 3.3 MEQ/L (3.5-5.1); SODIUM (NA) 139 MEQ/L (136-145)
[2016-11-22 05:01] LABS: HEMO FLAGS AUTO DIFF
[2016-11-22 05:02] LABS: ALKALINE PHOSPHATASE 51 U/L (45-117); TOTAL BILIRUBIN ADULT 0.6 MG/DL (0.2-1.0)
[2016-11-22] MEDS ORDERED: BENT20TA PO (05:30)
[2016-11-22] MEDS ORDERED: CARA1TAB6 PO (05:30)
[2016-11-22] MEDS ORDERED: POTA10CA PO (05:31)
[2016-11-22 06:05] LABS: OVALOCYTES 1+ (NORMAL)
[2016-11-22 06:06] VITALS: BP 155/64
[2016-11-22 06:06] LABS: SCAN/DIFF AUTO DIFF CONFIRMED
== END 2016-11-22 06:15 | disposition home or self-care (01) ==
LOC: NEPE 03:51
DX: K29.50 Unspecified chronic gastritis without bleeding (principal); I10 Essential (primary) hypertension; Z72.0 Tobacco use
CPT/HCPCS: 80053; 83690; 85025; 96361; 96374; 96375; 99284; C9113; J1200; J2765; J7030

== ENCOUNTER 2017-05-30 14:57 | Emergency (ER) | payer MEDICAID ==
[~2017-05-30] VITALS: Ht 154.9 cm; Wt 78.0 kg
[~2017-05-30 14:57] MED LIST changes: +BENT20TA PO; +CARA1TAB6 PO; -CYCL1TAB29 PO; -MILKSUS PO; -OMEP20TA PO; +POTA10CA PO; -SUMA50TA2 PO; -[UNRECOGNIZED DRUG - CODE] IM
[2017-05-30] MEDS ORDERED: SODIUM CHLOR 0.9% 1000 ML INJ 1,000 ML IV SCH (15:07)
[2017-05-30] MEDS ORDERED: MORPHINE SULFATE 4 MG/ML INJ IV PUSH ONE ×2 (15:15→17:00)
[2017-05-30] MEDS ORDERED: ONDANSETRON HCL 4 MG/2 ML VIAL IVP ONE (15:15)
[2017-05-30] MEDS ORDERED: SODIUM CHLORIDE 0.9% FLUSH 10 ML FLUSH IV FLUSH PRN (15:15)
[2017-05-30] MEDS ORDERED: ALUMINUM/MAGNESIUM/SIMETH 30 ML CUP PO ONE (15:15)
[2017-05-30] MEDS ORDERED: LIDOCAINE VISCOUS 2% SOLN 15 ML UDC PO ONE (15:15)
[2017-05-30] MEDS ORDERED: PANTOPRAZOLE SODIUM 40 MG VIAL IVP ONE (15:15)
[2017-05-30 15:23] VITALS: BP 128/87; PULSE 104; RESP 34; TEMP 98.4; O2SAT 100
[2017-05-30 15:26] VITALS: O2SAT 100
[2017-05-30 15:29] LABS: AUTOMATED NEUTROPHIL # 4.3 TH/MM3 (1.8-7.7); BASOPHIL # 0.1 TH/MM3 (0-0.2); BASOPHIL % 1.6 % (0.0-2.0); EOSINOPHIL % 0.5 % (0.0-4.0); HEMATOCRIT 30.1 % (35.0-46.0); HEMO FLAGS DIFF FINAL; LYMPH % 30.4 % (9.0-44.0); MEAN CELL VOLUME 64.6 FL (80.0-100.0); MEAN CORPUSCULAR HEMOGLOBIN 19.9 PG (27.0-34.0); MEAN CORPUSCULAR HGB CONC 30.8 % (32.0-36.0); NEUT % 63.5 % (16.0-70.0); PLATELET COUNT 562 TH/MM3 (150-450); RED BLOOD COUNT 4.66 MIL/MM3 (4.00-5.30); RED CELL DISTRIBUTION WIDTH 22.8 % (11.6-17.2); WHITE BLOOD COUNT 6.7 TH/MM3 (4.0-11.0)
[2017-05-30 15:41] LABS: CHLORIDE 109 MEQ/L (98-107); POTASSIUM 3.4 MEQ/L (3.5-5.1); SODIUM (NA) 139 MEQ/L (136-145)
[2017-05-30 15:50] LABS: PROTHROMBIN TIME - PATIENT 10.9 SEC (9.8-11.6)
[2017-05-30 16:01] LABS: ALKALINE PHOSPHATASE 60 U/L (45-117); ALT (GPT) 16 U/L (10-53); ANION GAP 8 MEQ/L (5-15); AST (GOT) 16 U/L (15-37); BLOOD UREA NITROGEN 5 MG/DL (7-18); GLOMERULAR FILTRATION RATE 142 ML/MIN (>89); TOTAL BILIRUBIN ADULT 0.5 MG/DL (0.2-1.0)
[2017-05-30] MEDS ORDERED: CLON1TAB PO (16:22)
--- NOTE | 2017-05-30 16:27 | PD ---
HPI Chief Complaint: Abdominal Pain Time Seen by Provider: 15:05 Travel History International Travel<30 days: No Contact w/Intl Traveler<30days: No Traveled to known affect area: No History of Present Illness HPI 37-year-old Afro-[place] female brought in by EMS for severe epigastric tenderness, nausea, vomiting, and abdominal pain. Patient states she was on omeprazole but ran out approximately 1 week ago and is since developed increasing pain as described. She states she can't keep anything down. She states she is urinating and having bowel movements. She denies fever, chills, shortness of breath, or chest pain. Pain is 10 over 10 upon arrival. Patient has history of this in the past last seen with gastritis diagnosed in October 2016 be an endoscopy. Patient was discharged home at that time with Carafate and omeprazole. Patient denies urinary symptoms, vaginal discharge, or flank pain. She states her bowels been somewhat stucco mason than normal. She has no known drug allergies. PFSH Past Medical History Hx Anticoagulant Therapy: No Anxiety: Yes Depression: Yes Cancer: No Cardiovascular Problems: No High Cholesterol: No Chemotherapy: No Chest Pain: Yes (CHRONIC FOR 3 YEARS) Cerebrovascular Accident: No Diabetes: No Diminished Hearing: No Endocrine: No Genitourinary: Yes Headaches: Yes Hypertension: Yes Immune Disorder: No Musculoskeletal: Yes Neurologic: Yes Psychiatric: Yes Reproductive: No Respiratory: Yes (HX OF PNEUMOTHORACES) Integumentary: Yes Immunizations Current: Yes Migraines: Yes Seizures: Yes (ONCE, NOT ON MEDS) Sickle Cell Disease: Yes (TRAIT) ?: Not : 9 Para: 9 Miscarriage: 0 : 0 Ovarian Cysts: Yes Tubal Ligation: Yes Past Surgical History Cardiac Surgery: Yes (CHEST TUBE 2006) Section: Yes (02/13/2010 X 1) Gynecologic Surgery: Yes () Thoracic Surgery: Yes (PNEUMOTHORAX) Other Surgery: Yes (right chest tube in aug 03 FOR SPONT. PNEUMOTHORAX) Social History Alcohol Use: No (pt. denies) Tobacco Use: Yes (5 CIGS/DAY) Substance Use: Yes (MARIJUANA OCCASIONALLY) Allergies-Medications (Allergen,Severity, Reaction): Coded Allergies: No Known Allergies (Verified , 05/30/17) Reported Meds & Prescriptions Reported Meds & Active Scripts Active Omeprazole 40 Mg Cap 40 Mg PO DAILY Hydrocodone-Acetaminophen 5-325 mg Tab 1 Tab PO Q4H PRN Sertraline (Sertraline HCl) 100 Mg Tab 100 Mg PO DAILY Clonidine (Clonidine HCl) 0.1 Mg Tab 0.1 Mg PO DAILY PRN Ambien (Zolpidem Tartrate) 10 Mg Tab 5 Mg PO HS PRN Reported Clonazepam 1 Mg Tab 1 Mg PO TID Topamax (Topiramate) 100 Mg Tab 100 Mg PO BID Lisinopril 10 Mg Tab 20 Mg PO DAILY Review of Systems Except as stated in HPI: all other systems reviewed are Neg General / Constitutional: No: Fever, Chills Eyes: No: Visual changes HENT: No: Headaches Cardiovascular: No: Chest Pain or Discomfort, Palpitations, Tachycardia Respiratory: No: Cough, Shortness of Breath, Wheezing Gastrointestinal: Positive: Nausea, Vomiting, Abdominal Pain, Indigestion, No: Diarrhea, Hematemesis, Hematochezia, Constipation, Changes in Bowel Habits, Dysphagia, Loss of Appetite Genitourinary: No: Dysuria Musculoskeletal: No: Pain Skin: No Rash Neurologic: No: Weakness Psychiatric: No: Depression Endocrine: No: Polydipsia Hematologic/Lymphatic: No: Easy Bruising Physical Exam Narrative GENERAL: Patient is in moderate distress. SKIN: Warm and dry. Normal color. Normal turgor. No rash. HEAD: Atraumatic. Normocephalic. EYES: Pupils equal and round. No scleral icterus. No injection or drainage. ENT: No nasal bleeding or discharge. Mucous membranes pink and moist. Pharynx is clear. Airway is patent. NECK: Trachea midline. Supple nontender. CARDIOVASCULAR: Regular rate and rhythm. RESPIRATORY: No accessory muscle use. Clear to auscultation. Breath sounds equal bilaterally. GASTROINTESTINAL: Abdomen soft, moderate generalized tenderness without rebound , nondistended. Pain mainly in the epigastric region. Hepatic and splenic margins not palpable. No CVA tenderness. MUSCULOSKELETAL: Extremities without clubbing, cyanosis, or edema. No obvious deformities. NEUROLOGICAL: Awake and alert. No obvious cranial nerve deficits. Motor grossly within normal limits. Five out of 5 muscle strength in the arms and legs. Normal speech. PSYCHIATRIC: Appropriate mood and affect; insight and judgment normal. Data Data Last Documented VS Vital Signs Date Time Temp Pulse Resp B/P (MAP) Pulse Ox O2 Delivery O2 Flow Rate FiO2 05/30/17 15:26 100 Room Air 05/30/17 15:23 98.4 104 34 Orders Orders Complete Blood Count With Diff (05/30/17 15:07) Comprehensive Metabolic Panel (05/30/17 15:07) Lipase (05/30/17 15:07) Lactic Acid (05/30/17 15:07) Prothrombin Time / Inr (Pt) (05/30/17 15:07) Act Partial Throm Time (Ptt) (05/30/17 15:07) Urinalysis - C+S If Indicated (05/30/17 15:07) Iv Access Insert/Monitor (05/30/17 15:07) Ecg Monitoring (05/30/17 15:07) Oximetry (05/30/17 15:07) Morphine Inj (Morphine Inj) (05/30/17 15:15) Ondansetron Inj (Zofran Inj) (05/30/17 15:15) Pantoprazole Inj (Protonix Inj) (05/30/17 15:15) Sodium Chlor 0.9% 1000 Ml Inj (Ns 1000 M (05/30/17 15:07) Sodium Chloride 0.9% Flush (Ns Flush) (05/30/17 15:15) Electrocardiogram (05/30/17 15:07) Al-Mag Hy-Si 40-40-4 Mg/Ml Liq (Mag-Al P (05/30/17 15:15) Lidocaine 2% Viscous (Xylocaine 2% Visco (05/30/17 15:15) Ed Urine Pregnancytest Poc (05/30/17 15:07) Sucralfate Liq (Carafate Liq) (05/30/17 16:30) Abdomen, Upright Only (05/30/17 16:34) Chest, Single Ap (05/30/17 ) Promethazine Inj (Phenergan Inj) (05/30/17 16:45) Morphine Inj (Morphine Inj) (05/30/17 17:00) Labs Laboratory Tests Test 05/30/17 15:15 05/30/17 16:55 White Blood Count 6.7 TH/MM3 Red Blood Count 4.66 MIL/MM3 Hemoglobin 9.3 GM/DL Hematocrit 30.1 % Mean Corpuscular Volume 64.6 FL Mean Corpuscular Hemoglobin 19.9 PG Mean Corpuscular Hemoglobin Concent 30.8 % Red Cell Distribution Width 22.8 % Platelet Count 562 TH/MM3 Mean Platelet Volume 8.8 FL Neutrophils (%) (Auto) 63.5 % Lymphocytes (%) (Auto) 30.4 % Monocytes (%) (Auto) 4.0 % Eosinophils (%) (Auto) 0.5 % Basophils (%) (Auto) 1.6 % Neutrophils # (Auto) 4.3 TH/MM3 Lymphocytes # (Auto) 2.0 TH/MM3 Monocytes # (Auto) 0.3 TH/MM3 Eosinophils # (Auto) 0.0 TH/MM3 Basophils # (Auto) 0.1 TH/MM3 CBC Comment DIFF FINAL Differential Comment Prothrombin Time 10.9 SEC Prothromb Time International Ratio 1.0 RATIO Activated Partial Thromboplast Time 26.0 SEC Blood Urea Nitrogen 5 MG/DL Creatinine 0.58 MG/DL Random Glucose 98 MG/DL Total Protein 8.9 GM/DL Albumin 4.1 GM/DL Calcium Level 9.1 MG/DL Alkaline Phosphatase 60 U/L Aspartate Amino Transf (AST/SGOT) 16 U/L Alanine Aminotransferase (ALT/SGPT) 16 U/L Total Bilirubin 0.5 MG/DL Sodium Level 139 MEQ/L Potassium Level 3.4 MEQ/L Chloride Level 109 MEQ/L Carbon Dioxide Level 22.0 MEQ/L Anion Gap 8 MEQ/L Estimat Glomerular Filtration Rate 142 ML/MIN Lactic Acid Level 1.8 mmol/L Lipase 158 U/L Urine Color YELLOW Urine Turbidity HAZY Urine pH 6.0 Urine Specific [place] 1.013 Urine Protein 30 mg/dL Urine Glucose (UA) NEG mg/dL Urine Ketones 40 mg/dL Urine Occult Blood LARGE Urine Nitrite NEG Urine Bilirubin NEG Urine Urobilinogen LESS THAN 2.0 MG/DL Urine Leukocyte Esterase NEG Urine RBC 8 /hpf Urine WBC 3 /hpf Urine Squamous Epithelial Cells 2 /hpf Urine Amorphous Sediment RARE Urine Bacteria OCC /hpf Urine Mucus FEW /lpf Microscopic Urinalysis Comment CULT NOT INDICATED MDM Medical Decision Making Medical Screen Exam Complete: Yes Emergency Medical Condition: Yes Medical Record Reviewed: Yes Differential Diagnosis Nausea. Vomiting. Abdominal pain. Gastritis. Narrative Course Patient is in pain but medically stable at time of exam. Labs ordered including CBC, CMP, urinalysis, and lipase. IV access is obtained and the patient is given 40 mg pantoprazole IV. Patient also given 4 mg Zofran IV and GI cocktail by mouth. Patient is given 4 mg seen IV. Patient refused a GI cocktail as it made her nauseous and wanted to throw up. Patient was instead giving sulfate liquid 1 g by mouth. CBC shows no significant leukocytosis. Hemoglobin was 9.3 which compares to 10.3 and October 2016. Hematocrit is 30.1. Coagulation studies are normal. Chemistries show slightly low potassium at 3.4, chloride of 109. UA is 5, creatinine 0.58. Lactic acid is normal 1.8. Lipase is normal 158. Urinalysis shows 1639 patient started retching again. Promethazine 25 mg IM is ordered. Upright abdominal x-rays ordered as well as chest x-ray. Upright abdominal x-rays show no free air or obstruction. Chest x-ray shows possible infiltrate in the perihilar region. Patient is discussed with Dr. Case feels the patient is stable for discharge. Patient is sent home on omeprazole 40 mg daily #30. Patient is given a prescription for Zofran 4 mg every 6 hours. #20. Patient is continued on Carafate 1 g 30 minutes prior to eating and at bedtime # 40. Patient is also given promethazine 12.5 mg tablets to be taken as needed for nausea not improved with Zofran. #20. Patient is to follow-up with [facility] or other primary care physician. Diagnosis Primary Impression: Gastritis Qualified Codes: K29.50 - Unspecified chronic gastritis without bleeding Additional Impression: Intractable nausea and vomiting Qualified Codes: R11.2 - Nausea with vomiting, unspecified Referrals: [facility] Patient Instructions: General Instructions Additional Instructions: Patient is discussed with Dr. Case feels the patient is stable for discharge. Patient is sent home on omeprazole 40 mg daily #30. Patient is given a prescription for Zofran 4 mg every 6 hours. #20. Patient is continued on Carafate 1 g 30 minutes prior to eating and at bedtime # 40. Patient is also given promethazine 12.5 mg tablets to be taken as needed for nausea not improved with Zofran. #20. Patient is to follow-up with [facility] or other primary care physician. Med/Other Pt SpecificInfo: Prescription(s) given Disposition: DISCHARGE HOME Condition: Stable Magdi Parish May 30, 2017 16:27
[2017-05-30] MEDS ORDERED: SUCRALFATE 1 GM/10 ML CUP PO ONE (16:30)
[2017-05-30] MEDS ORDERED: PROMETHAZINE INJ 25 MG/ML VIAL IM ONE (16:45)
--- NOTE | 2017-05-30 17:08 | RADRPT ---
EXAM DATE/TIME: 05/30/2017 16:47 [facility] COMPARISON: CHEST SINGLE AP, November 17, 2016, 17:08. INDICATIONS : Chest discomfort with upper abdominal pain. Nausea. MEDICAL HISTORY : None. SURGICAL HISTORY : None. ENCOUNTER: Initial ACUITY: 1 day PAIN SCORE: 7/10 LOCATION: Bilateral chest FINDINGS: A single AP portable view the chest was obtained and demonstrates new right perihilar opacity. The le ft lung is clear. There is no effusion. The cardiomediastinal contours are unremarkable. Osseous str uctures are intact. CONCLUSION: New right perihilar opacity of concern for pneumonia. Marcell Carbajal MD on May 30, 2017 at 17:04 Board Certified Radiologist. This report was verified electronically.
--- NOTE | 2017-05-30 17:09 | RADRPT ---
EXAM DATE/TIME: 05/30/2017 16:51 [facility] COMPARISON: No previous studies available for comparison. INDICATIONS : Nausea. Upper abdominal pain. MEDICAL HISTORY : None. SURGICAL HISTORY : None. ENCOUNTER: Initial ACUITY: 1 day PAIN SCORE: 8/10 LOCATION: Bilateral upper quadrant FINDINGS: A single limited erect view of the abdomen was obtained and demonstrates no evidence of free air. Gas and stool is noted segmentally in the colon. The lung bases are clear. The bony structures are intac t. CONCLUSION: Single view exam demonstrating no evidence of free air.. Marcell Carbajal MD on May 30, 2017 at 17:06 Board Certified Radiologist. This report was verified electronically.
[2017-05-30 17:11] LABS: BACTERIA, URINE OCC /hpf; BLOOD, URINE LARGE (NEG); COMMENT (UR) CULT NOT INDICATED; CULTURE IF INDICATED CULT NOT INDICATED; GLUCOSE,URINE NEG (NEG); KETONE, URINE 40 mg/dL (NEG); MUCUS URINE FEW /lpf (OCC); NITRITE,URINE NEG (NEG); SQUAMOUS EPITHELIAL CELL URINE 2 /hpf (0-5); URINE COLOR YELLOW (YELLW/STRAW)
[2017-05-30] MEDS ORDERED: OMEP40CA2 PO (17:30)
[2017-05-30] MEDS ORDERED: PROM12.54 PO (17:30)
[2017-05-30] MEDS ORDERED: CARA1TAB6 PO (17:30)
[2017-05-30] MEDS ORDERED: ZOFR4TAB PO (17:30)
--- NOTE | 2017-05-31 20:16 | EKG ---
Date Performed: 05/30/2017 Time Performed: 15:18:48 PTAGE: 37 years EKG: Sinus rhythm WITH MARKED SINUS ARRHYTHMIA NONSPECIFIC ST & T-WAVE ABNORMALITY BORDERLINE ECG PREVIOUS TRACING : 11/18/2016 05.01 DOCTOR: Desiree Rice Interpretating Date/Time 05/31/2017 20:12:17
== END 2017-05-30 18:09 | disposition home or self-care (01) ==
LOC: NEPC 14:57
DX: K29.70 Gastritis, unspecified, without bleeding (principal); F41.9 Anxiety disorder, unspecified; F32.9 Major depressive disorder, single episode, unspecified; I10 Essential (primary) hypertension; R56.9 Unspecified convulsions; D57.3 Sickle-cell trait; I49.8 Other specified cardiac arrhythmias; R94.31 Abnormal electrocardiogram [ECG] [EKG]; F17.210 Nicotine dependence, cigarettes, uncomplicated
CPT/HCPCS: 71010; 74000; 80053; 81001; 83605; 83690; 84703; 85025; 85610; 85730; 93005; 96361; 96372; 96374; 96375; 96376; 99285; C9113; J2270; J2405; J2550; J7030

== ENCOUNTER 2017-06-30 11:45 | Emergency (ER) | payer MEDICAID ==
[~2017-06-30] VITALS: Ht 154.9 cm; Wt 80.0 kg
[~2017-06-30 11:45] MED LIST changes: -ABIL5TAB6 PO; -AMLO5 PO; -BENT20TA PO; +CLON1TAB PO; -FERR325T PO; -NORE1TAB57 PO; -POTA10CA PO; +PROM12.54 PO; +ZOFR4TAB PO
[2017-06-30 11:51] VITALS: BP 120/81; PULSE 128; RESP 20; TEMP 98.8; O2SAT 100
--- NOTE | 2017-06-30 12:00 | PD ---
Physical Exam Date Seen by Provider: Jun 30, 2017 Time Seen by Provider: 11:58 Narrative 37 yo female here for leg pain. Per patient is severe. Brought by ambulance to triage. A "bunch of soda cans" fell onto her right foot. Pain is 10/10. No other injuries reported. Vitals stable in triage with exception of tachycardia. Awaiting bed placement. Data Data Last Documented VS Vital Signs Date Time Temp Pulse Resp B/P (MAP) Pulse Ox O2 Delivery O2 Flow Rate FiO2 06/30/17 11:51 98.8 128 20 120/81 (94) 100 Room Air [facility] Medical Record Reviewed: Yes Supervised Visit with JO-ANN: Bertin Alexis Jun 30, 2017 12:00
== END 2017-06-30 13:31 | disposition left against medical advice (07) ==
LOC: NED 11:45
DX: M79.604 Pain in right leg (principal); R00.0 Tachycardia, unspecified; Z53.21 Procedure and treatment not carried out due to patient leaving prior to being seen by health care provider
CPT/HCPCS: 99281

== ENCOUNTER 2017-09-02 08:03 | Inpatient (IN) | payer MEDICAID ==
[~2017-09-02] VITALS: Ht 154.9 cm; Wt 77.2 kg
[~2017-09-02 08:03] MED LIST changes: -TOPA100T11 PO; +TOPI100 PO
[2017-09-02 08:09] VITALS: BP 143/103; PULSE 97; RESP 22; TEMP 97.6; O2SAT 97
[2017-09-02] MEDS ORDERED: SODIUM CHLOR 0.9% 1000 ML INJ 1,000 ML IV SCH (08:10)
[2017-09-02] MEDS ORDERED: ONDANSETRON HCL 4 MG/2 ML VIAL IVP ONE (08:15)
[2017-09-02] MEDS ORDERED: MORPHINE SULFATE 4 MG/ML INJ IV PUSH ONE (08:15)
--- NOTE | 2017-09-02 08:21 | PD ---
HPI Chief Complaint: GI Complaint Time Seen by Provider: 08:10 Travel History International Travel<30 days: No Contact w/Intl Traveler<30days: No Traveled to known affect area: No History of Present Illness HPI 37-year-old female patient with history of hypertension, presents to the ER today because of one day of nausea, vomiting, abdominal pains, diarrhea. She rates it currently a 10 out of 10. She denies any fevers or other symptoms. She does not know any exacerbating or alleviating factors. Modifying Factors: None Associated Signs & Symptoms: Nausea, vomiting, diarrhea, abdominal pain Risk Factors: None PFSH Past Medical History Hx Anticoagulant Therapy: No Anxiety: Yes Depression: Yes Cancer: No Cardiovascular Problems: No High Cholesterol: No Chemotherapy: No Chest Pain: Yes (CHRONIC FOR 3 YEARS) Cerebrovascular Accident: No Diabetes: No Diminished Hearing: No Endocrine: No Genitourinary: Yes Headaches: Yes Hypertension: Yes Immune Disorder: No Musculoskeletal: Yes Neurologic: Yes Psychiatric: Yes Reproductive: No Respiratory: Yes (HX OF PNEUMOTHORACES) Integumentary: Yes Immunizations Current: Yes Migraines: Yes Seizures: Yes (ONCE, NOT ON MEDS) Sickle Cell Disease: Yes (TRAIT) ?: Not LMP: 08/16/17 : 9 Para: 9 Miscarriage: 0 : 0 Ovarian Cysts: Yes Tubal Ligation: Yes Past Surgical History Cardiac Surgery: Yes (CHEST TUBE 2006) Section: Yes (02/13/2010 X 1) Gynecologic Surgery: Yes () Thoracic Surgery: Yes (PNEUMOTHORAX) Other Surgery: Yes (right chest tube in aug 03 FOR SPONT. PNEUMOTHORAX) Social History Alcohol Use: No (pt. denies) Tobacco Use: Yes (5 CIGS/DAY) Substance Use: Yes (MARIJUANA OCCASIONALLY) Allergies-Medications (Allergen,Severity, Reaction): Coded Allergies: No Known Allergies (Verified Adverse Reaction, Unknown, 09/02/17) Reported Meds & Prescriptions Reported Meds & Active Scripts Active Zofran (Ondansetron HCl) 4 Mg Tab 4 Mg PO Q6HR PRN Promethazine (Promethazine HCl) 12.5 Mg Tab 12.5 Mg PO Q6H PRN Omeprazole 40 Mg Cap 40 Mg PO DAILY Carafate (Sucralfate) 1 Gm Tab 1 Gm PO QID On empty stomach Omeprazole 40 Mg Cap 40 Mg PO DAILY Hydrocodone-Acetaminophen 5-325 mg Tab 1 Tab PO Q4H PRN Sertraline (Sertraline HCl) 100 Mg Tab 100 Mg PO DAILY Clonidine (Clonidine HCl) 0.1 Mg Tab 0.1 Mg PO DAILY PRN Ambien (Zolpidem Tartrate) 10 Mg Tab 5 Mg PO HS PRN Reported Clonazepam 1 Mg Tab 1 Mg PO TID Topamax (Topiramate) 100 Mg Tab 100 Mg PO BID Lisinopril 10 Mg Tab 20 Mg PO DAILY Review of Systems Except as stated in HPI: all other systems reviewed are Neg Physical Exam Narrative GENERAL: Well-developed young -[place] female patient currently in moderate distress. Awake and oriented 3. SKIN: Focused skin assessment warm/dry. HEAD: Atraumatic. Normocephalic. EYES: Pupils equal and round. No scleral icterus. No injection or drainage. ENT: No nasal bleeding or discharge. Mucous membranes pink and moist. NECK: Trachea midline. No JVD. CARDIOVASCULAR: Regular rate and rhythm. No murmur appreciated. RESPIRATORY: No accessory muscle use. Clear to auscultation. Breath sounds equal bilaterally. GASTROINTESTINAL: Abdomen soft, upper abdominal tenderness without guarding or rebound, nondistended. Hepatic and splenic margins not palpable. MUSCULOSKELETAL: No obvious deformities. No clubbing. No cyanosis. No edema. NEUROLOGICAL: Awake and alert. No obvious cranial nerve deficits. Motor grossly within normal limits. Normal speech. PSYCHIATRIC: Appropriate mood and affect; insight and judgment normal. Data Data Last Documented VS Vital Signs Date Time Temp Pulse Resp B/P (MAP) Pulse Ox O2 Delivery O2 Flow Rate FiO2 09/02/17 08:09 97.6 97 22 143/103 (116) 97 Room Air Orders Orders Complete Blood Count With Diff (09/02/17 08:10) Comprehensive Metabolic Panel (09/02/17 08:10) Lipase (09/02/17 08:10) Urinalysis - C+S If Indicated (09/02/17 08:10) Iv Access Insert/Monitor (09/02/17 08:10) Ecg Monitoring (09/02/17 08:10) Oximetry (09/02/17 08:10) Morphine Inj (Morphine Inj) (09/02/17 08:15) Ondansetron Inj (Zofran Inj) (09/02/17 08:15) Sodium Chlor 0.9% 1000 Ml Inj (Ns 1000 M (09/02/17 08:10) Sodium Chloride 0.9% Flush (Ns Flush) (09/02/17 08:15) Ed Urine Pregnancytest Poc (09/02/17 08:10) Promethazine Inj (Phenergan Inj) (09/02/17 09:15) Ns + Kcl 20 Meq Inj (Ns + Kcl 20 Meq Inj (09/02/17 09:15) Ketorolac Inj (Toradol Inj) (09/02/17 11:30) Ct Abd/Pel W Iv Contrast(Rout) (09/02/17 11:27) Iohexol 350 Inj (Omnipaque 350 Inj) (09/02/17 13:04) Hydroxyzine Hcl Inj (Vistaril Inj) (09/02/17 14:15) Admit Order (Ed Use Only) (09/02/17 14:32) Labs Laboratory Tests Test 09/02/17 08:15 09/02/17 10:59 White Blood Count 6.0 TH/MM3 Red Blood Count 4.84 MIL/MM3 Hemoglobin 9.6 GM/DL Hematocrit 30.6 % Mean Corpuscular Volume 63.2 FL Mean Corpuscular Hemoglobin 19.8 PG Mean Corpuscular Hemoglobin Concent 31.3 % Red Cell Distribution Width 23.7 % Platelet Count 338 TH/MM3 Mean Platelet Volume 8.8 FL Neutrophils (%) (Auto) 60.6 % Lymphocytes (%) (Auto) 32.3 % Monocytes (%) (Auto) 5.8 % Eosinophils (%) (Auto) 0.3 % Basophils (%) (Auto) 1.0 % Neutrophils # (Auto) 3.6 TH/MM3 Lymphocytes # (Auto) 1.9 TH/MM3 Monocytes # (Auto) 0.3 TH/MM3 Eosinophils # (Auto) 0.0 TH/MM3 Basophils # (Auto) 0.1 TH/MM3 CBC Comment DIFF FINAL Differential Comment Blood Urea Nitrogen 3 MG/DL Creatinine 0.56 MG/DL Random Glucose 132 MG/DL Total Protein 8.7 GM/DL Albumin 4.2 GM/DL Calcium Level 9.5 MG/DL Alkaline Phosphatase 56 U/L Aspartate Amino Transf (AST/SGOT) 13 U/L Alanine Aminotransferase (ALT/SGPT) 15 U/L Total Bilirubin 0.5 MG/DL Sodium Level 143 MEQ/L Potassium Level 2.9 MEQ/L Chloride Level 108 MEQ/L Carbon Dioxide Level 25.3 MEQ/L Anion Gap 10 MEQ/L Estimat Glomerular Filtration Rate 147 ML/MIN Lipase 190 U/L Urine Color YELLOW Urine Turbidity HAZY Urine pH 6.5 Urine Specific Herman 1.014 Urine Protein 30 mg/dL Urine Glucose (UA) NEG mg/dL Urine Ketones 10 mg/dL Urine Occult Blood NEG Urine Nitrite NEG Urine Bilirubin NEG Urine Urobilinogen LESS THAN 2.0 MG/DL Urine Leukocyte Esterase NEG Urine RBC LESS THAN 1 /hpf Urine WBC 2 /hpf Urine Squamous Epithelial Cells 10 /hpf Urine Mucus FEW /lpf Microscopic Urinalysis Comment CULT NOT INDICATED MDM Medical Decision Making Medical Screen Exam Complete: Yes Emergency Medical Condition: Yes Medical Record Reviewed: Yes Interpretation(s) Laboratory Tests Test 09/02/17 08:15 09/02/17 10:59 Hemoglobin 9.6 GM/DL (11.6-15.3) Hematocrit 30.6 % (35.0-46.0) Mean Corpuscular Volume 63.2 FL (80.0-100.0) Mean Corpuscular Hemoglobin 19.8 PG (27.0-34.0) Mean Corpuscular Hemoglobin Concent 31.3 % (32.0-36.0) Red Cell Distribution Width 23.7 % (11.6-17.2) Blood Urea Nitrogen 3 MG/DL (7-18) Random Glucose 132 MG/DL (74-106) Total Protein 8.7 GM/DL (6.4-8.2) Aspartate Amino Transf (AST/SGOT) 13 U/L (15-37) Potassium Level 2.9 MEQ/L (3.5-5.1) Chloride Level 108 MEQ/L (98-107) Urine Turbidity HAZY (CLEAR) Urine Protein 30 mg/dL (NEG-TRACE) Urine Ketones 10 mg/dL (NEG) Urine Mucus FEW /lpf (OCC) Last 24 hours Impressions Abdomen/Pelvis CT 09/02/17 1127 Signed Impressions: Service Date/Time: August 13:02 - CONCLUSION: 1. No acute abnormality is identified to explain the clinical symptoms. 2. Stable nonspecific pleural-parenchymal process in the right posterior hemithorax. Its stability Ebenezer Haney MD Differential Diagnosis Nausea, vomiting, diarrhea, abdominal pains: Gastritis versus pancreatitis versus gastroenteritis versus dehydration versus metabolic issues versus cholecystitis Narrative Course Lab work shows significant hypokalemia and potassium was given IV in the ER. patient was given several doses of pain medications, Zofran, Phenergan, in the ER and continued to vomit, is not doing well at home and is not doing well in the ER. At this point, my plan would be to admit the patient for observation for further treatment of vomiting and for hypokalemia treatment. Case is discussed with Dr. Mcnally admission. Diagnosis Primary Impression: Abdominal pain Additional Impressions: Intractable nausea and vomiting Hypokalemia Admitting Information Admitting Physician Requests: Admit Shar Mahajan MD Sep 02, 2017 08:21
[2017-09-02 08:31] LABS: AUTOMATED NEUTROPHIL # 3.6 TH/MM3 (1.8-7.7); BASOPHIL # 0.1 TH/MM3 (0-0.2); EOSINOPHIL % 0.3 % (0.0-4.0); HEMATOCRIT 30.6 % (35.0-46.0); HEMO FLAGS DIFF FINAL; LYMPH % 32.3 % (9.0-44.0); LYMPHOCYTE # 1.9 TH/MM3 (1.0-4.8); MEAN CELL VOLUME 63.2 FL (80.0-100.0); MEAN CORPUSCULAR HEMOGLOBIN 19.8 PG (27.0-34.0); MEAN CORPUSCULAR HGB CONC 31.3 % (32.0-36.0); MONO % 5.8 % (0.0-8.0); NEUT % 60.6 % (16.0-70.0); PLATELET COUNT 338 TH/MM3 (150-450); RED BLOOD COUNT 4.84 MIL/MM3 (4.00-5.30); RED CELL DISTRIBUTION WIDTH 23.7 % (11.6-17.2)
[2017-09-02 08:52] LABS: ALKALINE PHOSPHATASE 56 U/L (45-117); ALT (GPT) 15 U/L (10-53); ANION GAP 10 MEQ/L (5-15); AST (GOT) 13 U/L (15-37); BICARBONATE 25.3 MEQ/L (21.0-32.0); BLOOD UREA NITROGEN 3 MG/DL (7-18); CHLORIDE 108 MEQ/L (98-107); GLOMERULAR FILTRATION RATE 147 ML/MIN (>89); SODIUM (NA) 143 MEQ/L (136-145); TOTAL BILIRUBIN ADULT 0.5 MG/DL (0.2-1.0)
[2017-09-02 09:08] LABS: POTASSIUM 2.9 MEQ/L (3.5-5.1)
[2017-09-02] MEDS ORDERED: PROMETHAZINE INJ 25 MG/ML VIAL IM ONE ×2 (09:15→18:15)
[2017-09-02] MEDS ORDERED: NS + KCL 20 MEQ INJ 1,000 ML IV ONE (09:15)
[2017-09-02] MEDS ORDERED: KETOROLAC TROMETHAMINE 30 MG/ML (IVP) VIAL IV PUSH ONE (11:30)
[2017-09-02 11:32] LABS: BLOOD, URINE NEG (NEG); COMMENT (UR) CULT NOT INDICATED; CULTURE IF INDICATED CULT NOT INDICATED; GLUCOSE,URINE NEG (NEG); KETONE, URINE 10 mg/dL (NEG); MUCUS URINE FEW /lpf (OCC); NITRITE,URINE NEG (NEG); PH, URINE 6.5 (5.0-8.5); SQUAMOUS EPITHELIAL CELL URINE 10 /hpf (0-5); URINE COLOR YELLOW (YELLW/STRAW)
[2017-09-02] MEDS ORDERED: IOHEXOL 350 MG/ML 10 ML VIAL (for RAD DIAG) IVCONTRAST ONE (13:04)
--- NOTE | 2017-09-02 13:44 | RADRPT ---
EXAM DATE/TIME: 09/02/2017 13:02 [facility] COMPARISON: CT PULMONARY ANGIOGRAM, September 03, 2014, 19:17. CT ABDOMEN & PELVIS W CONTRAST, February 15, 2015, 7:[address] ABDOMEN & PELVIS W CONTRAST, November 17, 2016, 19:45. INDICATIONS : Abdominal pain with nausea and vomiting. IV CONTRAST: 81 cc Omnipaque 350 (iohexol) IV ORAL CONTRAST: No oral contrast ingested. RADIATION DOSE: 8.25 CTDIvol (mGy) MEDICAL HISTORY : Hypertension. SURGICAL HISTORY : Tubal ligation. ENCOUNTER: Initial ACUITY: 1 day PAIN SCALE: 3/10 LOCATION: Bilateral abdomen TECHNIQUE: Volumetric scanning of the abdomen and pelvis was performed. Using automated exposure control and ad justment of the mA and/or kV according to patient size, radiation dose was kept as low as reasonably achievable to obtain optimal diagnostic quality images. DICOM format image data is available electro nically for review and comparison. FINDINGS: LOWER LUNGS: There is stable nonspecific right posterior pleural thickening with associated high density material and adjacent parenchymal change. There is mild paraseptal emphysema in the right lung. LIVER: The liver demonstrates a stable appearance with innumerable low-density lesions throughout. These are too small to characterize but have not significantly changed since January 2015. The appearance suggest von Meyenburg complexes. There is no dilation of the biliary tree. No calcified gallstones. SPLEEN: Normal size without lesion. PANCREAS: Within normal limits. KIDNEYS: Normal in size and shape. There is no mass, stone or hydronephrosis. ADRENAL GLANDS: Within normal limits. VASCULAR: There is no aortic aneurysm. BOWEL/MESENTERY: The stomach, small bowel, and colon demonstrate no acute abnormality. There is no free intraperitone al air or fluid. ABDOMINAL WALL: There is a small fat containing hernia superior to the umbilicus, stable from the prior study. RETROPERITONEUM: There is no lymphadenopathy. BLADDER: No wall thickening or mass. REPRODUCTIVE: Within normal limits. Tubal ligation clips are present. INGUINAL: There is no lymphadenopathy or hernia. MUSCULOSKELETAL: No acute abnormality is identified. CONCLUSION: 1. No acute abnormality is identified to explain the clinical symptoms. 2. Stable nonspecific pleural-parenchymal process in the right posterior hemithorax. Its stability Ebenezer Haney MD on September 02, 2017 at 13:37 Board Certified Radiologist. This report was verified electronically.
[2017-09-02 14:00] VITALS: BP 152/91; PULSE 85; RESP 18; O2SAT 100
[2017-09-02 15:47] VITALS: BP 176/87; PULSE 95; RESP 16; TEMP 97.8; O2SAT 97
[2017-09-02] MEDS: FAMOTIDINE 20 MG/2 ML VIAL IV PUSH SCH (16:08)
[2017-09-02] MEDS: POTASSIUM CHLOR 10 MEQ PREMIX 100 ML IV SCH ×2 (16:16→21:47)
[2017-09-02 16:39] LABS: FERRITIN 4 NG/ML (8-252); TRANSFERRIN IRON PROFILE 362 MG/DL (200-360)
[2017-09-02] MEDS ORDERED: cloNIDine HCL 0.1 MG TAB PO PRN (17:45)
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
[2017-09-02] MEDS ORDERED: ENALAPRILAT 1.25 MG/ML VIAL IV PUSH PRN (18:00)
[2017-09-02] MEDS ORDERED: IRON SUCROSE INJ 200 MG in SODIUM CHLORIDE 0.9% INJ 100 ML IV ONE (18:00)
[2017-09-02] MEDS ORDERED: PROMETHAZINE HCL 25 MG SUPP RECTAL ONE (18:00)
[2017-09-02] MEDS ORDERED: MORPHINE SULFATE 2 MG/ML INJ IV PUSH PRN (18:00)
[2017-09-02] MEDS ORDERED: ZOLPIDEM TARTRATE 5 MG TAB PO PRN (18:00)
[2017-09-02] MEDS ORDERED: MORPHINE SULFATE 2 MG/ML INJ IV PUSH ONE (18:00)
[2017-09-02] MEDS: MORPHINE SULFATE 2 MG/ML INJ IV PUSH PRN ×2 (18:03→21:46)
[2017-09-02] MEDS: SUCRALFATE 1 GM TAB PO SCH (18:55)
[2017-09-02] MEDS: LISINOPRIL 20 MG TAB PO SCH (18:55)
[2017-09-02] MEDS: clonazePAM 1 MG TAB PO SCH (18:55)
[2017-09-02 20:54] VITALS: BP 138/68; PULSE 78; RESP 18; O2SAT 100
[2017-09-03 00:04] VITALS: BP 147/73; PULSE 63; RESP 18; TEMP 98.2; O2SAT 100
[2017-09-03] MEDS: TOPIRAMATE 100 MG TAB PO SCH ×3 (00:48→20:15)
[2017-09-03] MEDS: SUCRALFATE 1 GM TAB PO SCH ×5 (00:48→20:15)
[2017-09-03] MEDS: D5-NS + KCL 20 MEQ INJ 1,000 ML IV SCH ×2 (00:50→11:47)
[2017-09-03] MEDS: FAMOTIDINE 20 MG/2 ML VIAL IV PUSH SCH ×2 (02:48→16:31)
[2017-09-03] MEDS: MORPHINE SULFATE 2 MG/ML INJ IV PUSH PRN ×5 (02:49→23:59)
[2017-09-03 03:06] VITALS: BP 122/59; PULSE 76; RESP 18; O2SAT 100
[2017-09-03 07:30] VITALS: BP 145/72; PULSE 69; RESP 18; TEMP 98.3; O2SAT 100
[2017-09-03] MEDS: ONDANSETRON HCL 4 MG/2 ML VIAL IV PUSH PRN ×3 (07:48→16:53)
[2017-09-03] MEDS: SODIUM CHLORIDE 0.9% FLUSH 10 ML FLUSH IV FLUSH PRN (07:54)
[2017-09-03] MEDS: POTASSIUM CHLOR 10 MEQ PREMIX 100 ML IV SCH (08:47)
[2017-09-03] MEDS: LISINOPRIL 20 MG TAB PO SCH (09:38)
[2017-09-03] MEDS: clonazePAM 1 MG TAB PO SCH ×3 (09:38→18:38)
[2017-09-03] MEDS: SERTRALINE HCL 100 MG TAB PO SCH (09:39)
[2017-09-03 10:40] LABS: AUTOMATED NEUTROPHIL # 4.4 TH/MM3 (1.8-7.7); BASOPHIL # 0.1 TH/MM3 (0-0.2); BASOPHIL % 1.2 % (0.0-2.0); EOSINOPHIL % 0.1 % (0.0-4.0); HEMATOCRIT 29.1 % (35.0-46.0); HEMO FLAGS DIFF FINAL; LYMPHOCYTE # 1.8 TH/MM3 (1.0-4.8); MEAN CORPUSCULAR HEMOGLOBIN 19.4 PG (27.0-34.0); MEAN CORPUSCULAR HGB CONC 30.4 % (32.0-36.0); MONO % 7.2 % (0.0-8.0); NEUT % 64.5 % (16.0-70.0); PLATELET COUNT 261 TH/MM3 (150-450); RED BLOOD COUNT 4.54 MIL/MM3 (4.00-5.30); RED CELL DISTRIBUTION WIDTH 23.5 % (11.6-17.2); WHITE BLOOD COUNT 6.8 TH/MM3 (4.0-11.0)
[2017-09-03 10:58] LABS: ANION GAP 6 MEQ/L (5-15); AST (GOT) 25 U/L (15-37); BLOOD UREA NITROGEN 3 MG/DL (7-18); CHLORIDE 111 MEQ/L (98-107); GLOMERULAR FILTRATION RATE 164 ML/MIN (>89); MAGNESIUM 1.9 MG/DL (1.5-2.5); POTASSIUM 3.2 MEQ/L (3.5-5.1); SODIUM (NA) 142 MEQ/L (136-145)
[2017-09-03 10:59] LABS: ALT (GPT) 12 U/L (10-53)
[2017-09-03 11:01] LABS: ALKALINE PHOSPHATASE 54 U/L (45-117); TOTAL BILIRUBIN ADULT 0.3 MG/DL (0.2-1.0)
[2017-09-03 11:38] VITALS: BP 178/82; PULSE 80; RESP 18; TEMP 98; O2SAT 94
--- NOTE | 2017-09-03 16:29 | HHI.PR ---
Subjective Remarks The patient complained of persistent abdominal pain. She said it happens in cycles every few days. She says that she vomits a lot. She is afraid to eat because of the pain. She has had some diarrhea recently. 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 She has not had any blood in her vomitus or stools. Discussed with nursing. Objective Vitals Vital Signs Date Time Temp Pulse Resp B/P (MAP) Pulse Ox O2 Delivery O2 Flow Rate FiO2 09/03/17 11:38 98.0 80 18 178/82 (114) 94 09/03/17 07:30 98.3 69 18 145/72 (96) 100 09/03/17 03:06 76 18 122/59 (80) 100 09/03/17 00:04 98.2 63 18 147/73 (97) 100 09/02/17 20:54 78 18 138/68 (91) 100 I/O 09/02/17 09/02/17 09/02/17 09/03/17 09/03/17 09/03/17 07:00 15:00 23:00 07:00 15:00 23:00 Intake Total 1000 ml Balance 1000 ml Intake IV Total 1000 ml Result Diagram: 09/03/17 1010 09/03/17 1010 Imaging Last Impressions Abdomen/Pelvis CT 09/02/17 1127 Signed Impressions: Service Date/Time: August 13:02 - CONCLUSION: 1. No acute abnormality is identified to explain the clinical symptoms. 2. Stable nonspecific pleural-parenchymal process in the right posterior hemithorax. Its stability Ebenezer Haney MD Objective Remarks GENERAL: This is a well-nourished, well-developed patient, in no apparent distress. SKIN: No rashes, ecchymoses or lesions. Cool and dry. HEAD: Atraumatic. Normocephalic. No temporal or scalp tenderness. EYES: Pupils equal round and reactive. Extraocular motions intact. No scleral icterus. No injection or drainage. ENT: Nose without bleeding. Throat without erythema, tonsillar hypertrophy or exudate. Uvula midline. Airway patent. NECK: Trachea midline. No JVD or lymphadenopathy. Supple, nontender, no meningeal signs. No nuchal rigidity CARDIOVASCULAR: Regular rate and rhythm without murmurs, gallops, or rubs. RESPIRATORY: Clear to auscultation. Breath sounds equal bilaterally. No wheezes , rales, or rhonchi. GI: Decreased bowel sounds, soft no rigidity, no guarding. Positive tenderness on deep palpation over the epigastric area and LUQ. MUSCULOSKELETAL: Extremities without clubbing, cyanosis, or edema. No joint tenderness, effusion, or edema noted. NEUROLOGICAL: Awake and alert. Cranial nerves II through XII intact. Motor and sensory grossly within normal limits. Five out of 5 muscle strength in all muscle groups. Normal speech. PSYCH: Slightly flattened affect. Medications and IVs Current Medications Medications (Trade) Dose Ordered Sig/Haley Route Start Time Stop Time Status Last Admin (NS Flush) 2 ml UNSCH PRN IV FLUSH 09/02/17 08:15 09/03/17 07:54 Potassium Chloride/Dextrose/ Sod Cl 1,000 ml @ 83 mls/hr Q12H3M IV 09/02/17 14:45 09/03/17 00:50 (Pepcid Inj) 20 mg Q12H IV PUSH 09/02/17 14:45 09/03/17 02:48 (Morphine Inj) 2 mg Q4H PRN IV PUSH 09/02/17 17:30 09/03/17 12:54 (Zofran Inj) 4 mg Q6HR PRN IV PUSH 09/02/17 17:30 09/03/17 12:43 (KlonoPIN) 1 mg TID PO 09/02/17 18:00 09/03/17 12:50 (Prinivil) 20 mg DAILY PO 09/02/17 18:00 09/03/17 09:38 (Zoloft) 100 mg DAILY PO 09/03/17 09:00 09/03/17 09:39 (Carafate) 1 gm QID PO 09/02/17 18:00 09/03/17 12:50 (Topamax) 100 mg BID PO 09/02/17 21:00 09/03/17 09:39 (Ambien) 5 mg HS PRN PO 09/02/17 18:00 (Catapres) 0.1 mg Q6H PRN PO 09/02/17 17:45 09/03/17 12:50 (Morphine Inj) 0.5 mg Q2HR PRN IV PUSH 09/02/17 18:00 (Vasotec Inj) 1.25 mg Q6H PRN IV PUSH 09/02/17 18:00 (K-Lyte Cl Eff) 50 meq ONCE ONCE PO 09/03/17 16:30 09/03/17 16:31 UNV A/P Problem List: (1) Intractable nausea and vomiting ICD Code: R11.2 - Nausea with vomiting, unspecified Status: Acute Assessment and Plan Abdominal pain associated with intractable nausea Abdominal exam no guarding or rigidity. CT of the abdomen without acute pathology. GES in October normal. - pain control with a bowel regimen. - IV PPI. - antiemetics as needed. - consult GI. - trial of clear liquids. Hypertension Blood pressure has been elevated. - pain control. - increase lisinopril if needed. - Clonidine as needed. Severe hypokalemia Secondary to intractable nausea and fear of eating. - replete with IV and PO potassium and monitor BMP. Severe iron deficiency anemia Most likely secondary to heavy cycles. - s/p IV Venofer 200 mg 1.. - Start iron supplements by mouth when tolerates. Hyperglycemia May be a stress reaction. - check a HgbA1c. PPx: Patient up and ambulating. Teds for DVT prophylaxis Discharge Planning Awaiting GI Marcell Kc DO Sep 03, 2017 16:29
[2017-09-03] MEDS ORDERED: POTASSIUM CHLORIDE 25 MEQ EFFERVESCENT TAB PO ONE (16:30)
[2017-09-03] MEDS: oxyCODONE/ACETAMINOPHEN 5 MG/325 MG TAB PO PRN (17:29)
[2017-09-03] MEDS: PANTOPRAZOLE SODIUM 40 MG VIAL IV PUSH SCH (18:39)
[2017-09-03] MEDS: SODIUM CHLOR 0.45% 1000 ML INJ 1,000 ML IV SCH (18:39)
[2017-09-03 20:04] VITALS: BP 117/76; PULSE 76; RESP 16; TEMP 98.3; O2SAT 98
[2017-09-04 00:01] VITALS: BP 154/77; PULSE 87; RESP 18; TEMP 98.4; O2SAT 97
[2017-09-04] MEDS: FAMOTIDINE 20 MG/2 ML VIAL IV PUSH SCH ×2 (03:18→14:58)
[2017-09-04] MEDS: SODIUM CHLOR 0.45% 1000 ML INJ 1,000 ML IV SCH (03:19)
[2017-09-04 03:46] VITALS: BP 110/61; PULSE 91; RESP 18; TEMP 98.9; O2SAT 100
[2017-09-04] MEDS: MORPHINE SULFATE 2 MG/ML INJ IV PUSH PRN ×2 (04:14→08:18)
[2017-09-04 06:09] LABS: HEMATOCRIT 30.1 % (35.0-46.0); MEAN CELL VOLUME 64.6 FL (80.0-100.0); MEAN CORPUSCULAR HGB CONC 30.9 % (32.0-36.0); PLATELET COUNT 213 TH/MM3 (150-450); RED BLOOD COUNT 4.66 MIL/MM3 (4.00-5.30); RED CELL DISTRIBUTION WIDTH 23.3 % (11.6-17.2); REVIEW FLAG FINAL; WHITE BLOOD COUNT 7.5 TH/MM3 (4.0-11.0)
[2017-09-04 06:39] LABS: BICARBONATE 21.9 MEQ/L (21.0-32.0); MAGNESIUM 1.8 MG/DL (1.5-2.5); POTASSIUM 3.1 MEQ/L (3.5-5.1)
[2017-09-04] MEDS: ONDANSETRON HCL 4 MG/2 ML VIAL IV PUSH PRN ×3 (08:17→14:59)
[2017-09-04] MEDS: LISINOPRIL 20 MG TAB PO SCH (08:19)
[2017-09-04] MEDS: SODIUM CHLORIDE 0.9% FLUSH 10 ML FLUSH IV FLUSH PRN ×4 (08:19→14:58)
[2017-09-04] MEDS: SUCRALFATE 1 GM TAB PO SCH ×4 (08:19→22:00)
[2017-09-04] MEDS: SERTRALINE HCL 100 MG TAB PO SCH (08:20)
[2017-09-04] MEDS: TOPIRAMATE 100 MG TAB PO SCH ×3 (08:20→22:00)
[2017-09-04 08:23] VITALS: BP 103/57; PULSE 70; RESP 20; TEMP 98.6; O2SAT 96
[2017-09-04] MEDS: clonazePAM 1 MG TAB PO SCH ×3 (08:41→18:39)
--- NOTE | 2017-09-04 11:07 | HHI.PR ---
Subjective Remarks The pt said she still had a lot of pain in the epigastric area. She said the morphine helped, the pills did not. She wanted Gatorade. No other acute concerns at this time. Objective Vitals Vital Signs Date Time Temp Pulse Resp B/P (MAP) Pulse Ox O2 Delivery O2 Flow Rate FiO2 09/04/17 08:23 98.6 70 20 103/57 (72) 96 09/04/17 08:23 18 09/04/17 03:46 98.9 91 18 110/61 (77) 100 09/04/17 00:01 98.4 87 18 154/77 (102) 97 09/03/17 20:04 98.3 76 16 117/76 (90) 98 09/03/17 11:38 98.0 80 18 178/82 (114) 94 Result Diagram: 09/04/1720 09/04/17 0520 Imaging Last Impressions Abdomen/Pelvis CT 09/02/17 1127 Signed Impressions: Service Date/Time: August 13:02 - CONCLUSION: 1. No acute abnormality is identified to explain the clinical symptoms. 2. Stable nonspecific pleural-parenchymal process in the right posterior hemithorax. Its stability Ebenezer Haney MD Objective Remarks GENERAL: This is a well-nourished, well-developed patient, in no apparent distress. SKIN: No rashes, ecchymoses or lesions. Cool and dry. HEAD: Atraumatic. Normocephalic. No temporal or scalp tenderness. EYES: Pupils equal round and reactive. Extraocular motions intact. No scleral icterus. No injection or drainage. ENT: Nose without bleeding. Throat without erythema, tonsillar hypertrophy or exudate. Uvula midline. Airway patent. NECK: Trachea midline. No JVD or lymphadenopathy. Supple, nontender, no meningeal signs. No nuchal rigidity CARDIOVASCULAR: Regular rate and rhythm without murmurs, gallops, or rubs. RESPIRATORY: Clear to auscultation. Breath sounds equal bilaterally. No wheezes , rales, or rhonchi. GI: Decreased bowel sounds, soft no rigidity, no guarding. Positive tenderness on deep palpation over the epigastric area and LUQ. MUSCULOSKELETAL: Extremities without clubbing, cyanosis, or edema. No joint tenderness, effusion, or edema noted. NEUROLOGICAL: Awake and alert. Cranial nerves II through XII intact. Motor and sensory grossly within normal limits. Five out of 5 muscle strength in all muscle groups. Normal speech. PSYCH: Slightly flattened affect. Medications and IVs Current Medications Medications (Trade) Dose Ordered Sig/Haley Route Start Time Stop Time Status Last Admin (NS Flush) 2 ml UNSCH PRN IV FLUSH 09/02/17 08:15 09/04/17 08:19 (Pepcid Inj) 20 mg Q12H IV PUSH 09/02/17 14:45 09/04/17 03:18 (Zofran Inj) 4 mg Q6HR PRN IV PUSH 09/02/17 17:30 09/04/17 08:17 (KlonoPIN) 1 mg TID PO 09/02/17 18:00 09/04/17 08:41 (Prinivil) 20 mg DAILY PO 09/02/17 18:00 09/04/17 08:19 (Zoloft) 100 mg DAILY PO 09/03/17 09:00 09/04/17 08:20 (Carafate) 1 gm QID PO 09/02/17 18:00 09/04/17 08:19 (Topamax) 100 mg BID PO 09/02/17 21:00 09/04/17 08:20 (Ambien) 5 mg HS PRN PO 09/02/17 18:00 (Catapres) 0.1 mg Q6H PRN PO 09/02/17 17:45 09/03/17 12:50 (Vasotec Inj) 1.25 mg Q6H PRN IV PUSH 09/02/17 18:00 (Protonix Inj) 40 mg Q24H IV PUSH 09/03/17 17:00 09/03/17 18:39 (Morphine Inj) 4 mg Q4H PRN IV PUSH 09/03/17 17:30 09/04/17 08:18 (Percocet 5-325 Mg) 1 tab Q4H PRN PO 09/03/17 17:00 09/03/17 17:29 Potassium Chloride/Sodium Chloride 1,000 ml @ 100 mls/hr Q10H IV 09/04/17 11:00 A/P Problem List: (1) Intractable nausea and vomiting ICD Code: R11.2 - Nausea with vomiting, unspecified Status: Acute Assessment and Plan Abdominal pain associated with intractable nausea Abdominal exam no guarding or rigidity. CT of the abdomen without acute pathology. GES in October normal. - IV pain control with a bowel regimen. - IV PPI. - antiemetics as needed. - consult GI. - trial of clear liquids. Hypertension Blood pressure has been elevated. Improved. - pain control. - increase lisinopril if needed. - Clonidine as needed. Severe hypokalemia Secondary to intractable nausea and fear of eating. - replete with IV and PO potassium and monitor BMP. Started 1/2 NS with KCl. Severe iron deficiency anemia Most likely secondary to heavy cycles. - s/p IV Venofer 200 mg 1.. - Start iron supplements by mouth when tolerates. Hyperglycemia May be a stress reaction. - check a HgbA1c. PPx: Patient up and ambulating. Teds for DVT prophylaxis Discharge Planning Awaiting GI Marcell Kc DO Sep 04, 2017 11:07
[2017-09-04] MEDS: MORPHINE SULFATE 4 MG/ML INJ IV PUSH PRN ×3 (12:07→18:40)
[2017-09-04] MEDS: 1/2 NS + KCL 20 MEQ INJ 1,000 ML IV SCH ×2 (12:08→22:00)
[2017-09-04 12:18] VITALS: BP 108/68; PULSE 70; RESP 20; TEMP 97.9; O2SAT 70
[2017-09-04 13:11] LABS: HEMOGLOBIN A1a 1.4 %; HEMOGLOBIN A1b 0.5 %; HEMOGLOBIN Ao 56.3 %; HEMOGLOBIN LA1C 1.1 %; HEMOGLOBIN P3 2.2 %
--- NOTE | 2017-09-04 18:10 | MB ---
cc: COURTNEY CLEVELAND M.D. DATE OF CONSULTATION: 09/04/2017. DATE OF : 1980. REFERRING PHYSICIAN: Dr. Jose. HISTORY OF PRESENT ILLNESS: This is a 37-year-old lady who has history of hypertension and chronic back pain from an accident causing back injury. The patient came complaining of abdominal pain in the right upper quadrant. She feels it is radiating to the midabdomen and she it is 8/10. The patient stated that she occasionally has back pain. She had an endoscopy done before which was unremarkable except for gastritis. The patient also has cyclic nausea, vomiting and her last gastric emptying study was normal. REVIEW OF SYSTEMS: All 12-point negative except for the history of present illness. PAST MEDICAL HISTORY: Significant for: 1. Nausea and vomiting. 2. Hypertension. 3. Chronic pain. 4. Gastritis. 5. Headache. 6. Depression. 7. History of pneumothorax x2. MEDICATIONS: Reviewed in the chart. ALLERGIES: NO KNOWN DRUG ALLERGIES. FAMILY HISTORY: Noncontributory. SOCIAL HISTORY She smokes three to four cigarettes a day. No alcohol and marijuana. PHYSICAL EXAMINATION: GENERAL: Alert, oriented, in no acute distress at this time. VITAL SIGNS: Vital signs are stable. HEAD, EYES, EARS, NOSE, THROAT: Pupils are round and reactive to light. NECK: The neck is supple. CHEST: Clear to auscultation and percussion. CARDIAC: Regular rate and rhythm. No murmur or gallop. ABDOMEN: Abdomen soft and nondistended. Positive bowel sounds. She has tenderness in the mid epigastric area. No hepatosplenomegaly. Mild obesity. Positive bowel sounds. EXTREMITIES: No edema, clubbing or cyanosis. NEUROLOGIC: Neurologically intact. No range of motion abnormality and no weakness. PSYCHIATRIC: Psychologically appropriate. LABORATORY DATA: White count 7.5, hemoglobin 9.3, platelet 213,000. Potassium 3.1. Iron studies - low with saturation of 3.4. Liver function tests are normal. IMAGING STUDIES: CT scan of the abdomen unremarkable except for some changes nonspecific in the pleural area most likely related to her pneumothorax in the past. ASSESSMENT: A 37-year-old lady with significant abdominal pain, severe anemia with iron deficiency, last EGD was mild gastritis. The patient also has nausea and vomiting. Because of the anemia, I want to do an upper endoscopy and a colonoscopy. Will plan on doing this Wednesday. Meanwhile, continue supportive care. Antiemetics. Pain medications. Further plan depends on the hospital course and the findings on this procedure. MD NILDA Darnell/MONIK /5:37 PM /6:01 PM
[2017-09-04] MEDS: PANTOPRAZOLE SODIUM 40 MG VIAL IV PUSH SCH (18:39)
[2017-09-04 20:05] VITALS: BP 120/75; PULSE 75; RESP 17; TEMP 98.7; O2SAT 100
[2017-09-04 22:02] VITALS: BP 104/64; PULSE 65
[2017-09-04] MEDS: oxyCODONE/ACETAMINOPHEN 5 MG/325 MG TAB PO PRN (23:48)
[2017-09-05] VITALS (7 sets, daily range): BP systolic 93–121; BP diastolic 64–70; PULSE 70–81; RESP 17–18; TEMP 96.7–98.3; O2SAT 98–100
[2017-09-05] MEDS: FAMOTIDINE 20 MG/2 ML VIAL IV PUSH SCH (02:53)
[2017-09-05] MEDS: SODIUM CHLORIDE 0.9% FLUSH 10 ML FLUSH IV FLUSH PRN (02:53)
[2017-09-05] MEDS: 1/2 NS + KCL 20 MEQ INJ 1,000 ML IV SCH ×2 (06:09→17:00)
[2017-09-05] MEDS: ONDANSETRON HCL 4 MG/2 ML VIAL IV PUSH PRN ×4 (06:09→23:50)
[2017-09-05] MEDS: MORPHINE SULFATE 4 MG/ML INJ IV PUSH PRN ×7 (06:10→23:50)
[2017-09-05] MEDS: SUCRALFATE 1 GM TAB PO SCH ×4 (08:58→20:55)
[2017-09-05] MEDS: clonazePAM 1 MG TAB PO SCH ×3 (08:58→17:53)
[2017-09-05] MEDS: PANTOPRAZOLE SOD 40 MG DELAYED RELEASE TAB PO SCH (08:58)
[2017-09-05] MEDS: LISINOPRIL 20 MG TAB PO SCH (09:00)
[2017-09-05] MEDS: SERTRALINE HCL 100 MG TAB PO SCH (09:00)
[2017-09-05] MEDS: TOPIRAMATE 100 MG TAB PO SCH ×2 (09:00→20:55)
--- NOTE | 2017-09-05 09:56 | HHI.PR ---
Subjective Remarks Follow-up abdominal pain. States she is nauseous and continues to have epigastric pain scale of 6 out of 10. Discussed with RN Objective Vitals Vital Signs Date Time Temp Pulse Resp B/P (MAP) Pulse Ox O2 Delivery O2 Flow Rate FiO2 09/05/17 08:35 98.2 81 18 103/68 (80) 100 09/05/17 07:45 09/05/17 04:04 97.4 72 17 93/68 (76) 99 09/05/17 00:05 97.8 77 17 104/66 (79) 100 09/04/17 22:02 65 104/64 (77) 09/04/17 20:05 98.7 75 17 120/75 (90) 100 09/04/17 15:05 18 09/04/17 12:18 97.9 70 20 108/68 (81) 70 I/O 09/04/17 09/04/17 09/04/17 09/05/17 09/05/17 09/05/17 07:00 15:00 23:00 07:00 15:00 23:00 Intake Total 900 ml 360 ml 1387 ml Balance 900 ml 360 ml 1387 ml Intake Oral 360 ml 240 ml IV Total 900 ml 1147 ml # Voids 3 3 # Bowel Movements 0 0 Result Diagram: 09/04/17 0520 09/04/17 0520 Imaging Last Impressions Abdomen/Pelvis CT 09/02/17 1127 Signed Impressions: Service Date/Time: August 13:02 - CONCLUSION: 1. No acute abnormality is identified to explain the clinical symptoms. 2. Stable nonspecific pleural-parenchymal process in the right posterior hemithorax. Its stability Ebenezer Haney MD Objective Remarks GENERAL: This is a well-nourished, well-developed patient, in no apparent distress. SKIN: No rashes, ecchymoses or lesions. Cool and dry. CARDIOVASCULAR: Regular rate and rhythm without murmurs, gallops, or rubs. RESPIRATORY: Clear to auscultation. Breath sounds equal bilaterally. No wheezes , rales, or rhonchi. GI: Normal bowel sounds, soft no rigidity, no guarding. I barely touched her and she was already complaining of epigastric tenderness MUSCULOSKELETAL: Extremities without clubbing, cyanosis, or edema. No joint tenderness, effusion, or edema noted. NEUROLOGICAL: Awake and alert. Cranial nerves II through XII intact. Motor and sensory grossly within normal limits. Five out of 5 muscle strength in all muscle groups. Normal speech. A/P Problem List: (1) Intractable nausea and vomiting ICD Code: R11.2 - Nausea with vomiting, unspecified Status: Acute Assessment and Plan Abdominal pain associated with intractable nausea Abdominal exam no guarding or rigidity. CT of the abdomen without acute pathology. GES in October normal. - IV pain control with a bowel regimen. - IV PPI and sucralfate. - antiemetics as needed. - consulted GI for EGD and colonoscopy history of IVDA. - trial of clear liquids. - Consider drug seeking behavior if workup negative Hypertension Blood pressure has been elevated. Improved. - pain control. - increase lisinopril if needed. - Clonidine as needed. Severe hypokalemia Secondary to intractable nausea and fear of eating. - replete with IV and PO potassium and monitor BMP. Continue 1/2 NS with KCl. Severe iron deficiency anemia Most likely secondary to heavy cycles. - s/p IV Venofer 200 mg 1. - Start iron supplements by mouth when tolerates. Hyperglycemia May be a stress reaction. -A1c 5.9 PPx: Patient up and ambulating. Teds for DVT prophylaxis Discharge Planning Not ready for discharge for endoscopy in the morning Griffin Black MD Sep 05, 2017 09:56
[2017-09-05] MEDS ORDERED: INFLUENZA VIRUS VACCINE (QUADRIVALENT) 0.5 ML SYR IM ONE (10:00)
[2017-09-05] MEDS ORDERED: PNEUMOCOCCAL POLYVALENT INJ 25 MCG/0.5 ML SYR IM ONE (10:00)
[2017-09-05 13:14] LABS: BICARBONATE 19.4 MEQ/L (21.0-32.0); MAGNESIUM 1.9 MG/DL (1.5-2.5); POTASSIUM 3.8 MEQ/L (3.5-5.1)
--- NOTE | 2017-09-05 14:20 | HHI.GIFU ---
Subjective Remarks Patient in no apparent distress. Continues to have abdominal pain. (Joyce Ramírez) Objective Vitals I&O Vital Signs Date Time Temp Pulse Resp B/P (MAP) Pulse Ox O2 Delivery O2 Flow Rate FiO2 09/05/17 12:00 98.2 77 18 115/70 (85) 99 09/05/17 08:35 98.2 81 18 103/68 (80) 100 09/05/17 07:45 09/05/17 04:04 97.4 72 17 93/68 (76) 99 09/05/17 00:05 97.8 77 17 104/66 (79) 100 09/04/17 22:02 65 104/64 (77) 09/04/17 20:05 98.7 75 17 120/75 (90) 100 09/04/17 15:05 18 I/O 09/04/17 09/04/17 09/04/17 09/05/17 09/05/17 09/05/17 07:00 15:00 23:00 07:00 15:00 23:00 Intake Total 900 ml 360 ml 1387 ml 700 ml Balance 900 ml 360 ml 1387 ml 700 ml Intake Oral 360 ml 240 ml IV Total 900 ml 1147 ml 700 ml # Voids 3 3 # Bowel Movements 0 0 Laboratory Laboratory Tests Test 09/05/17 12:32 Blood Urea Nitrogen 7 Creatinine 0.66 Random Glucose 83 Calcium Level 8.2 Phosphorus Level 1.9 Magnesium Level 1.9 Sodium Level 140 Potassium Level 3.8 Chloride Level 112 Carbon Dioxide Level 19.4 Anion Gap 9 Estimat Glomerular Filtration Rate 122 Imaging Last Impressions Abdomen/Pelvis CT 09/02/17 1127 Signed Impressions: Service Date/Time: August 13:02 - CONCLUSION: 1. No acute abnormality is identified to explain the clinical symptoms. 2. Stable nonspecific pleural-parenchymal process in the right posterior hemithorax. Its stability Ebenezer Haney MD Physical Exam HEENT: Normocephalic; atraumatic; no jaundice. NECK: Neck is supple CHEST: CTA CARDIAC: RRR with no murmur gallop or rubs. ABDOMEN: Soft, obese, nondistended, epigastric TTP; no hepatosplenomegaly; bowel sounds are present in all four quadrants. EXTREMITIES: No clubbing, cyanosis, or edema. SKIN: Normal; no rash; no jaundice. MOVEMENT THERAPIST: No focal deficits; alert and oriented times three. (Joyce Ramírez) Assessment and Plan Plan ASSESSMENT: - Anemia, iron deficiency. Patient does report heavy menstrual cycles. 9.3/ 30.1. Iron 17, TIBC 507, % saturation 3.4, Ferritin 4. No rectal bleeding reported. - Abdominal pain, with associated nausea and vomiting. History of EGD which showed gastritis per patient. GES in October normal. - Hypertension, per attending PLAN: - EGD/Colonoscopy Wednesday - Clear liquids today - NPO at [facility] - Bowel prep today - Monitor - Anti emetics - Supportive care - Further recommendations to follow based on results of above Patient seen and examined by Dr. Tovar and myself and this note is written on his behalf. (Joyce Ramírez) Plan Patient was seen and examined, agree with above-noted, still having some abdominal pain questionable etiology, we'll plan upper endoscopy and colonoscopy tomorrow (Perla Tovar MD) Joyce Ramírez Sep 05, 2017 14:20 Perla Tovar MD Sep 05, 2017 14:32
[2017-09-05] MEDS: POTASSIUM PHOSPHATE MONOBASIC 500 MG TAB PO SCH ×2 (14:45→20:55)
[2017-09-05] MEDS ORDERED: PEG (High)/E-LYTE SOLN 4000 ML BTL PO ONE (16:00)
[2017-09-06] MEDS ORDERED: INSULIN HUMAN REGULAR 1,000 UNITS/10 ML VIAL SQ PRN (00:30)
[2017-09-06] MEDS ORDERED: CHLORHEXIDINE GLUCONATE 2 % 1 PACK (2 CLOTHS) TOPICAL PRN (00:30)
[2017-09-06] MEDS ORDERED: LACTATED RINGER'S 1000 ML IV PRN (00:30)
[2017-09-06] MEDS ORDERED: POVIDONE IODINE 5% (ANTISEPSIS KIT) 4 APPLICATIONS EACH NARE PRN (00:30)
[2017-09-06] MEDS ORDERED: METOPROLOL TARTRATE 25 MG TAB PO PRN (00:30)
[2017-09-06] MEDS ORDERED: SODIUM CHLORID 0.9% 500 ML IV PRN (00:30)
[2017-09-06 03:30] VITALS: BP 106/56; PULSE 75; RESP 18; TEMP 96.7; O2SAT 99
[2017-09-06] MEDS: 1/2 NS + KCL 20 MEQ INJ 1,000 ML IV SCH ×3 (03:43→21:50)
[2017-09-06] MEDS: MORPHINE SULFATE 4 MG/ML INJ IV PUSH PRN ×4 (03:45→20:08)
[2017-09-06] MEDS: ONDANSETRON HCL 4 MG/2 ML VIAL IV PUSH PRN ×2 (05:43→13:04)
[2017-09-06 07:28] LABS: BICARBONATE 20.2 MEQ/L (21.0-32.0); MAGNESIUM 1.9 MG/DL (1.5-2.5); POTASSIUM 3.8 MEQ/L (3.5-5.1)
[2017-09-06 08:00] VITALS: BP 102/54; PULSE 67; RESP 18; TEMP 97.9; O2SAT 100
--- NOTE | 2017-09-06 08:34 | HHI.PR ---
Subjective Remarks Cancelled Objective Vital Signs Date Time Temp Pulse Resp B/P (MAP) Pulse Ox O2 Delivery O2 Flow Rate FiO2 09/06/17 08:00 97.9 67 18 102/54 (70) 100 09/06/17 03:30 96.7 75 18 106/56 (73) 99 09/05/17 23:47 96.7 70 18 104/65 (78) 98 09/05/17 20:25 98.3 74 18 117/64 (81) 99 09/05/17 16:00 97.6 81 18 121/67 (85) 100 09/05/17 15:12 09/05/17 12:00 98.2 77 18 115/70 (85) 99 09/05/17 08:35 98.2 81 18 103/68 (80) 100 I/O 09/05/17 09/05/17 09/05/17 09/06/17 09/06/17 09/06/17 07:00 15:00 23:00 07:00 15:00 23:00 Intake Total 1387 ml 1420 ml 360 ml 0 ml Balance 1387 ml 1420 ml 360 ml 0 ml Intake Oral 240 ml 720 ml 360 ml 0 ml IV Total 1147 ml 700 ml # Voids 3 5 4 6 # Bowel Movements 0 0 0 0 Result Diagram: 09/04/17 0520 09/06/17 0637 Ernesto Diaz MD Sep 06, 2017 08:34
[2017-09-06] MEDS: clonazePAM 1 MG TAB PO SCH ×2 (09:00→13:04)
[2017-09-06] MEDS: SUCRALFATE 1 GM TAB PO SCH ×4 (09:00→20:07)
[2017-09-06] MEDS: POTASSIUM PHOSPHATE MONOBASIC 500 MG TAB PO SCH (09:00)
[2017-09-06] MEDS: PANTOPRAZOLE SOD 40 MG DELAYED RELEASE TAB PO SCH (09:00)
[2017-09-06] MEDS: SERTRALINE HCL 100 MG TAB PO SCH (09:00)
[2017-09-06] MEDS ORDERED: MIDAZOLAM HCL 2 MG/2 ML VIAL IV ONE (12:00)
[2017-09-06] MEDS ORDERED: ONDANSETRON HCL 4 MG/2 ML VIAL IV PUSH ONE (12:00)
[2017-09-06] MEDS ORDERED: LIDOCAINE HCL 1% PF 5 ML SYRINGE OTHER ONE (12:00)
[2017-09-06] MEDS ORDERED: ePHEDrine/NS 25 MG/5 ML SYR IV ONE (12:00)
[2017-09-06] MEDS ORDERED: ROCURONIUM INJ 50 MG/5 ML SYRINGE IV PUSH ONE (12:00)
[2017-09-06] MEDS ORDERED: MORPHINE SULFATE 4 MG/ML INJ IV ONE (12:00)
[2017-09-06] MEDS ORDERED: DEXAMETHASONE SOD PHOS 4 MG/ML VIAL IV ONE (12:00)
[2017-09-06] MEDS ORDERED: PROPOFOL 200 MG/20 ML AMP IV ONE (12:00)
[2017-09-06] MEDS ORDERED: PEG (High)/E-LYTE SOLN 4000 ML BTL PO ONE (12:30)
--- NOTE | 2017-09-06 12:31 | PD.PROCEDR ---
GI Procedure REFERRING PHYSICIAN Eusebia PROCEDURE PERFORMED EGD with biopsy followed by colonoscopy INDICATION FOR PROCEDURE Anemia, abdominal pain PROCEDURE: The procedure, risks and benefits were discussed with Ms. Armstrong and informed consent was obtained. Anesthesia sedated her with Diprivan. She was placed in the left lateral decubitus position. EGD: The Pentax videoscope was introduced through the oropharynx and advanced to the second portion of the duodenum under direct visualization. Retroflexion was performed in the stomach. FINDINGS: Esophagus this appeared to be unremarkable and within normal limits Stomach there was some patchy erythema in the antrum but no ulcerations or erosions no blood or bleeding the rest of the stomach was unremarkable antral biopsies were taken for further evaluation Duodenum this was normal biopsies were taken further evaluation Colonoscopy: The Pentax videoscope was introduced through the rectum and advanced to cecum where the ileocecal valve and appendiceal orifice were identified. Retroflexion was performed in the rectum. Colonic prep was poor especially in the cecum and the ascending colon FINDINGS: The colon was basically unremarkable and within normal limits but the examination was limited due to the fact that there was poor prep and so this will need to be re-done ESTIMATED BLOOD LOSS: None SPECIMENS REMOVED: Gastric and duodenal biopsies COMPLICATIONS: None IMPRESSION: Gastritis Incomplete colonoscopy PLAN: Await biopsies Repeat colonoscopy in Vin Bunn MD Sep 06, 2017 12:31
[2017-09-06] MEDS: TOPIRAMATE 100 MG TAB PO SCH ×2 (13:04→20:07)
--- NOTE | 2017-09-06 14:37 | HHI.PR ---
Subjective Remarks Patient followed due to Abdominal pain and nausea and vomit. status post EGD Stomach with patchy erythema in the antrum but no ulceration or erosions, no blood or bleeding, Colonoscopy poor prep will repeat again in am tomorrow. Objective Vital Signs Date Time Temp Pulse Resp B/P (MAP) Pulse Ox O2 Delivery O2 Flow Rate FiO2 09/06/17 12:24 97.8 74 18 119/73 (88) 99 09/06/17 08:00 97.9 67 18 102/54 (70) 100 09/06/17 03:30 96.7 75 18 106/56 (73) 99 09/05/17 23:47 96.7 70 18 104/65 (78) 98 09/05/17 20:25 98.3 74 18 117/64 (81) 99 09/05/17 16:00 97.6 81 18 121/67 (85) 100 09/05/17 15:12 I/O 09/05/17 09/05/17 09/05/17 09/06/17 09/06/17 09/06/17 07:00 15:00 23:00 07:00 15:00 23:00 Intake Total 1387 ml 1420 ml 360 ml 0 ml Balance 1387 ml 1420 ml 360 ml 0 ml Intake Oral 240 ml 720 ml 360 ml 0 ml IV Total 1147 ml 700 ml # Voids 3 5 4 6 # Bowel Movements 0 0 0 0 Result Diagram: 09/04/17 0520 09/06/17 0637 Imaging Last Impressions Abdomen/Pelvis CT 09/02/17 1127 Signed Impressions: Service Date/Time: August 13:02 - CONCLUSION: 1. No acute abnormality is identified to explain the clinical symptoms. 2. Stable nonspecific pleural-parenchymal process in the right posterior hemithorax. Its stability Ebenezer Haney MD Procedures Abdominal pain and nausea and vomit. status post EGD Stomach with patchy erythema in the antrum but no ulceration or erosions, no blood or bleeding, Colonoscopy poor prep will repeat again in am tomorrow. Other Results Laboratory Tests Test 09/02/17 08:15 09/02/17 10:59 09/03/17 10:10 09/04/17 05:20 Iron Level 17 MCG/DL Total Iron Binding Capacity 507 MCG/DL Percent Iron Saturation 3.4 % Ferritin 4 NG/ML Lipase 190 U/L Urine Color YELLOW Urine Turbidity HAZY Urine pH 6.5 Urine Specific [place] 1.014 Urine Protein 30 mg/dL Urine Glucose (UA) NEG mg/dL Urine Ketones 10 mg/dL Urine Occult Blood NEG Urine Nitrite NEG Urine Bilirubin NEG Urine Urobilinogen LESS THAN 2.0 MG/DL Urine Leukocyte Esterase NEG Urine RBC LESS THAN 1 /hpf Urine WBC 2 /hpf Urine Squamous Epithelial Cells 10 /hpf Urine Mucus FEW /lpf Microscopic Urinalysis Comment CULT NOT INDICATED Urine Opiates Screen POS Urine Barbiturates Screen NEG Urine Amphetamines Screen NEG Urine Benzodiazepines Screen POS Urine Cocaine Screen NEG Urine Cannabinoids Screen NEG Neutrophils (%) (Auto) 64.5 % Lymphocytes (%) (Auto) 27.0 % Monocytes (%) (Auto) 7.2 % Eosinophils (%) (Auto) 0.1 % Basophils (%) (Auto) 1.2 % Neutrophils # (Auto) 4.4 TH/MM3 Lymphocytes # (Auto) 1.8 TH/MM3 Monocytes # (Auto) 0.5 TH/MM3 Eosinophils # (Auto) 0.0 TH/MM3 Basophils # (Auto) 0.1 TH/MM3 CBC Comment DIFF FINAL Differential Comment Hemoglobin A1c 5.9 % Blood Urea Nitrogen 3 MG/DL Creatinine 0.51 MG/DL Random Glucose 146 MG/DL Total Protein 8.4 GM/DL Albumin 3.8 GM/DL Calcium Level 8.8 MG/DL Magnesium Level 1.9 MG/DL Alkaline Phosphatase 54 U/L Aspartate Amino Transf (AST/SGOT) 25 U/L Alanine Aminotransferase (ALT/SGPT) 12 U/L Total Bilirubin 0.3 MG/DL Sodium Level 142 MEQ/L Potassium Level 3.2 MEQ/L Chloride Level 111 MEQ/L Carbon Dioxide Level 25.0 MEQ/L White Blood Count 7.5 TH/MM3 Red Blood Count 4.66 MIL/MM3 Hemoglobin 9.3 GM/DL Hematocrit 30.1 % Mean Corpuscular Volume 64.6 FL Mean Corpuscular Hemoglobin 20.0 PG Mean Corpuscular Hemoglobin Concent 30.9 % Red Cell Distribution Width 23.3 % Platelet Count 213 TH/MM3 Mean Platelet Volume 9.1 FL Test 09/06/17 06:37 Blood Urea Nitrogen 6 MG/DL Creatinine 0.58 MG/DL Random Glucose 89 MG/DL Calcium Level 8.4 MG/DL Phosphorus Level 2.5 MG/DL Magnesium Level 1.9 MG/DL Sodium Level 140 MEQ/L Potassium Level 3.8 MEQ/L Chloride Level 111 MEQ/L Carbon Dioxide Level 20.2 MEQ/L Anion Gap 9 MEQ/L Estimat Glomerular Filtration Rate 142 ML/MIN Objective Remarks GENERAL: Obese patient in no acute distress. SKIN: No rashes, ecchymoses or lesions. Cool and dry. CARDIOVASCULAR: Regular rate and rhythm without murmurs, gallops, or rubs. RESPIRATORY: Clear to auscultation. Breath sounds equal bilaterally. No wheezes , rales, or rhonchi. GI: Normal bowel sounds, soft no rigidity, no guarding. I barely touched her and she was already complaining of epigastric tenderness MUSCULOSKELETAL: Extremities without clubbing, cyanosis, or edema. No joint tenderness, effusion, or edema noted. NEUROLOGICAL: Awake and alert. Cranial nerves II through XII intact. Medications and IVs Current Medications Medications (Trade) Dose Ordered Sig/Haley Route Start Time Stop Time Status Last Admin (NS Flush) 2 ml UNSCH PRN IV FLUSH 09/02/17 08:15 09/05/17 02:53 (Zofran Inj) 4 mg Q6HR PRN IV PUSH 09/02/17 17:30 09/06/17 13:04 (KlonoPIN) 1 mg TID PO 09/02/17 18:00 09/06/17 13:04 (Zoloft) 100 mg DAILY PO 09/03/17 09:00 09/05/17 09:00 (Carafate) 1 gm QID PO 09/02/17 18:00 09/06/17 13:00 (Topamax) 100 mg BID PO 09/02/17 21:00 09/06/17 13:04 (Ambien) 5 mg HS PRN PO 09/02/17 18:00 (Vasotec Inj) 1.25 mg Q6H PRN IV PUSH 09/02/17 18:00 (Percocet 5-325 Mg) 1 tab Q4H PRN PO 09/03/17 17:00 09/04/17 23:48 Potassium Chloride/Sodium Chloride 1,000 ml @ 100 mls/hr Q10H IV 09/04/17 11:00 09/06/17 13:03 (Morphine Inj) 4 mg Q3H PRN IV PUSH 09/04/17 11:45 09/06/17 08:36 (Protonix) 40 mg DAILY PO 09/05/17 09:00 09/05/17 08:58 (K-Phos) 1,000 mg Q12HR PO 09/05/17 14:45 09/06/17 14:44 09/05/17 14:45 Lactated Ringer's 1,000 ml @ 30 mls/hr Q24H PRN IV 09/06/17 00:30 09/09/17 00:29 09/06/17 10:30 Sodium Chloride 500 ml @ 30 mls/hr [id number] PRN IV 09/06/17 00:30 09/09/17 00:29 (Lopressor) 25 mg ELECTRO MECHANICAL ASSEMBLER PRN PO 09/06/17 00:30 09/09/17 00:29 (Betadine 5% Antisepsis Kit) 1 applic ELECTRO MECHANICAL ASSEMBLER PRN EACH NARE 09/06/17 00:30 09/09/17 00:29 (Chlorhexidine 2% Cloth) 3 pack ELECTRO MECHANICAL ASSEMBLER PRN TOPICAL 09/06/17 00:30 09/09/17 00:29 (NovoLIN R INJ) See Protocol Table ... ELECTRO MECHANICAL ASSEMBLER PRN SQ 09/06/17 00:30 09/09/17 00:29 A/P Assessment and Plan Abdominal pain associated with intractable nausea Abdominal exam no guarding or rigidity. CT of the abdomen without acute pathology. GES in October normal. - Pain management, PPI, Sucralfate, history of IVDA, Status post EGD Stomach with patchy erythema in the antrum but no ulceration or erosions, no blood or bleeding, Colonoscopy poor prep will repeat again in am tomorrow. Hypertension controlled. has Hypotension on hold Lisinopril Severe iron deficiency anemia Most likely secondary to heavy cycles. - s/p IV Venofer 200 mg 1. - Start iron supplements by mouth when tolerates. PPx: Patient up and ambulating. Teds for DVT prophylaxis Discharge Planning Once cleared by GI specialist. Ernesto Diaz MD Sep 06, 2017 14:37
[2017-09-06 16:00] VITALS: BP 109/56; PULSE 91; RESP 18; TEMP 98.4; O2SAT 100
[2017-09-06] MEDS ORDERED: INFLUENZA VIRUS VACCINE (QUADRIVALENT) 0.5 ML SYR IM ONE (19:30)
[2017-09-06] MEDS ORDERED: PNEUMOCOCCAL POLYVALENT INJ 25 MCG/0.5 ML SYR IM ONE (19:30)
[2017-09-06 20:03] VITALS: BP 116/70; PULSE 73; RESP 17; TEMP 96.9; O2SAT 99
[2017-09-06] MEDS: clonazePAM 1 MG TAB PO PRN (20:05)
[2017-09-07 00:10] VITALS: BP 103/58; PULSE 72; RESP 17; TEMP 98.3; O2SAT 98
[2017-09-07] MEDS: MORPHINE SULFATE 4 MG/ML INJ IV PUSH PRN ×5 (00:12→21:55)
[2017-09-07 03:27] VITALS: BP 92/57; PULSE 90; RESP 18; TEMP 98.7; O2SAT 97
[2017-09-07] MEDS: ONDANSETRON HCL 4 MG/2 ML VIAL IV PUSH PRN (05:37)
[2017-09-07 08:00] VITALS: BP 119/86; PULSE 95; RESP 16; TEMP 96.6; O2SAT 100
[2017-09-07] MEDS: TOPIRAMATE 100 MG TAB PO SCH ×2 (08:00→19:47)
[2017-09-07] MEDS: SUCRALFATE 1 GM TAB PO SCH ×4 (08:01→19:48)
[2017-09-07] MEDS: SERTRALINE HCL 100 MG TAB PO SCH (08:01)
[2017-09-07] MEDS: PANTOPRAZOLE SOD 40 MG DELAYED RELEASE TAB PO SCH (08:01)
[2017-09-07] MEDS: clonazePAM 1 MG TAB PO PRN ×3 (08:04→19:47)
--- NOTE | 2017-09-07 08:13 | HHI.PR ---
Subjective Remarks Patient followed due to Abdominal pain and nausea and vomit. status post EGD Stomach with patchy erythema in the antrum but no ulceration or erosions, no blood or bleeding, Colonoscopy poor prep will repeat again in am tomorrow. 09/07: Seen in her bedroom still complaint of abdominal pain not found pathology until now will have Colonoscopy tomorrow and decide by GI specialist if the patient may be discharged. no nausea, vomit or diarrhea. Objective Vital Signs Date Time Temp Pulse Resp B/P (MAP) Pulse Ox O2 Delivery O2 Flow Rate FiO2 09/07/17 03:27 98.7 90 18 92/57 (69) 97 09/07/17 00:10 98.3 72 17 103/58 (73) 98 09/06/17 20:03 96.9 73 17 116/70 (85) 99 09/06/17 16:00 98.4 91 18 109/56 (73) 100 09/06/17 12:24 97.8 74 18 119/73 (88) 99 I/O 09/06/17 09/06/17 09/06/17 09/07/17 09/07/17 09/07/17 07:00 15:00 23:00 07:00 15:00 23:00 Intake Total 0 ml 240 ml 760 ml 0 ml Balance 0 ml 240 ml 760 ml 0 ml Intake Oral 0 ml 240 ml 360 ml 0 ml Other 400 ml # Voids 6 5 5 4 # Bowel Movements 0 1 1 1 Result Diagram: 09/04/17 0520 09/06/17 0637 Imaging Last Impressions Abdomen/Pelvis CT 09/02/17 1127 Signed Impressions: Service Date/Time: August 13:02 - CONCLUSION: 1. No acute abnormality is identified to explain the clinical symptoms. 2. Stable nonspecific pleural-parenchymal process in the right posterior hemithorax. Its stability Ebenezer Haney MD Procedures Abdominal pain and nausea and vomit. status post EGD Stomach with patchy erythema in the antrum but no ulceration or erosions, no blood or bleeding, Colonoscopy poor prep will repeat again in am tomorrow. Other Results Laboratory Tests Test 09/02/17 08:15 09/02/17 10:59 09/03/17 10:10 09/04/17 05:20 Iron Level 17 MCG/DL Total Iron Binding Capacity 507 MCG/DL Percent Iron Saturation 3.4 % Ferritin 4 NG/ML Lipase 190 U/L Urine Color YELLOW Urine Turbidity HAZY Urine pH 6.5 Urine Specific [place] 1.014 Urine Protein 30 mg/dL Urine Glucose (UA) NEG mg/dL Urine Ketones 10 mg/dL Urine Occult Blood NEG Urine Nitrite NEG Urine Bilirubin NEG Urine Urobilinogen LESS THAN 2.0 MG/DL Urine Leukocyte Esterase NEG Urine RBC LESS THAN 1 /hpf Urine WBC 2 /hpf Urine Squamous Epithelial Cells 10 /hpf Urine Mucus FEW /lpf Microscopic Urinalysis Comment CULT NOT INDICATED Urine Opiates Screen POS Urine Barbiturates Screen NEG Urine Amphetamines Screen NEG Urine Benzodiazepines Screen POS Urine Cocaine Screen NEG Urine Cannabinoids Screen NEG Neutrophils (%) (Auto) 64.5 % Lymphocytes (%) (Auto) 27.0 % Monocytes (%) (Auto) 7.2 % Eosinophils (%) (Auto) 0.1 % Basophils (%) (Auto) 1.2 % Neutrophils # (Auto) 4.4 TH/MM3 Lymphocytes # (Auto) 1.8 TH/MM3 Monocytes # (Auto) 0.5 TH/MM3 Eosinophils # (Auto) 0.0 TH/MM3 Basophils # (Auto) 0.1 TH/MM3 CBC Comment DIFF FINAL Differential Comment Hemoglobin A1c 5.9 % Blood Urea Nitrogen 3 MG/DL Creatinine 0.51 MG/DL Random Glucose 146 MG/DL Total Protein 8.4 GM/DL Albumin 3.8 GM/DL Calcium Level 8.8 MG/DL Magnesium Level 1.9 MG/DL Alkaline Phosphatase 54 U/L Aspartate Amino Transf (AST/SGOT) 25 U/L Alanine Aminotransferase (ALT/SGPT) 12 U/L Total Bilirubin 0.3 MG/DL Sodium Level 142 MEQ/L Potassium Level 3.2 MEQ/L Chloride Level 111 MEQ/L Carbon Dioxide Level 25.0 MEQ/L White Blood Count 7.5 TH/MM3 Red Blood Count 4.66 MIL/MM3 Hemoglobin 9.3 GM/DL Hematocrit 30.1 % Mean Corpuscular Volume 64.6 FL Mean Corpuscular Hemoglobin 20.0 PG Mean Corpuscular Hemoglobin Concent 30.9 % Red Cell Distribution Width 23.3 % Platelet Count 213 TH/MM3 Mean Platelet Volume 9.1 FL Test 09/06/17 06:37 Blood Urea Nitrogen 6 MG/DL Creatinine 0.58 MG/DL Random Glucose 89 MG/DL Calcium Level 8.4 MG/DL Phosphorus Level 2.5 MG/DL Magnesium Level 1.9 MG/DL Sodium Level 140 MEQ/L Potassium Level 3.8 MEQ/L Chloride Level 111 MEQ/L Carbon Dioxide Level 20.2 MEQ/L Anion Gap 9 MEQ/L Estimat Glomerular Filtration Rate 142 ML/MIN Objective Remarks GENERAL: Obese patient in no acute distress. SKIN: No rashes, ecchymoses or lesions. Cool and dry. CARDIOVASCULAR: Regular rate and rhythm without murmurs, gallops, or rubs. RESPIRATORY: Clear to auscultation. Breath sounds equal bilaterally. No wheezes , rales, or rhonchi. GI: Normal bowel sounds, soft no rigidity, no guarding. I barely touched her and she was already complaining of epigastric tenderness MUSCULOSKELETAL: Extremities without clubbing, cyanosis, or edema. No joint tenderness, effusion, or edema noted. NEUROLOGICAL: Awake and alert. Cranial nerves II through XII intact. Medications and IVs Current Medications Medications (Trade) Dose Ordered Sig/Haley Route Start Time Stop Time Status Last Admin (NS Flush) 2 ml UNSCH PRN IV FLUSH 09/02/17 08:15 09/05/17 02:53 (Zofran Inj) 4 mg Q6HR PRN IV PUSH 09/02/17 17:30 09/07/17 05:37 (Zoloft) 100 mg DAILY PO 09/03/17 09:00 09/07/17 08:01 (Carafate) 1 gm QID PO 09/02/17 18:00 09/07/17 08:01 (Topamax) 100 mg BID PO 09/02/17 21:00 09/07/17 08:00 (Ambien) 5 mg HS PRN PO 09/02/17 18:00 (Vasotec Inj) 1.25 mg Q6H PRN IV PUSH 09/02/17 18:00 (Percocet 5-325 Mg) 1 tab Q4H PRN PO 09/03/17 17:00 09/04/17 23:48 Potassium Chloride/Sodium Chloride 1,000 ml @ 100 mls/hr Q10H IV 09/04/17 11:00 09/06/17 13:03 (Morphine Inj) 4 mg Q3H PRN IV PUSH 09/04/17 11:45 09/07/17 05:38 (Protonix) 40 mg DAILY PO 09/05/17 09:00 09/07/17 08:01 Lactated Ringer's 1,000 ml @ 30 mls/hr Q24H PRN IV 09/06/17 00:30 09/09/17 00:29 09/06/17 10:30 Sodium Chloride 500 ml @ 30 mls/hr [id number] PRN IV 09/06/17 00:30 09/09/17 00:29 (Lopressor) 25 mg MOVEMENT ASSEMBLY FINAL INSPECTOR PRN PO 09/06/17 00:30 09/09/17 00:29 (Betadine 5% Antisepsis Kit) 1 applic MOVEMENT ASSEMBLY FINAL INSPECTOR PRN EACH NARE 09/06/17 00:30 09/09/17 00:29 (Chlorhexidine 2% Cloth) 3 pack MOVEMENT ASSEMBLY FINAL INSPECTOR PRN TOPICAL 09/06/17 00:30 09/09/17 00:29 (NovoLIN R INJ) See Protocol Table ... MOVEMENT ASSEMBLY FINAL INSPECTOR PRN SQ 09/06/17 00:30 09/09/17 00:29 (KlonoPIN) 1 mg TID PRN PO 09/06/17 14:45 09/07/17 08:04 (Pneumovax-23 Inj) 25 mcg ONCE ONCE IM 09/07/17 09:00 09/07/17 09:01 (Flu (Quadrivalent) Vaccine Inj) 0.5 ml ONCE ONCE IM 09/07/17 09:00 09/07/17 09:01 A/P Assessment and Plan Abdominal pain associated with intractable nausea Abdominal exam no guarding or rigidity. CT of the abdomen without acute pathology. GES in October normal. - Pain management, PPI, Sucralfate, history of IVDA, Status post EGD Stomach with patchy erythema in the antrum but no ulceration or erosions, no blood or bleeding, Colonoscopy was held due to Poor prep will be performed tomorrow. Hypertension controlled. has Hypotension on hold Lisinopril Severe iron deficiency anemia Most likely secondary to heavy cycles. - s/p IV Venofer 200 mg 1. - Start iron supplements by mouth when tolerates. PPx: Patient up and ambulating. Teds for DVT prophylaxis Discharge Planning Awaiting final by GI specialist for discharge Ernesto Diaz MD Sep 07, 2017 08:13
[2017-09-07] MEDS ORDERED: INFLUENZA VIRUS VACCINE (QUADRIVALENT) 0.5 ML SYR IM ONE (09:00)
[2017-09-07] MEDS: 1/2 NS + KCL 20 MEQ INJ 1,000 ML IV SCH ×2 (09:00→19:00)
[2017-09-07] MEDS ORDERED: PNEUMOCOCCAL POLYVALENT INJ 25 MCG/0.5 ML SYR IM ONE (09:00)
[2017-09-07 09:11] LABS: HEMATOCRIT 33.3 % (35.0-46.0); MEAN CELL VOLUME 64.6 FL (80.0-100.0); PLATELET COUNT 259 TH/MM3 (150-450); RED BLOOD COUNT 5.15 MIL/MM3 (4.00-5.30); RED CELL DISTRIBUTION WIDTH 23.3 % (11.6-17.2); REVIEW FLAG FINAL; WHITE BLOOD COUNT 6.3 TH/MM3 (4.0-11.0)
[2017-09-07 15:35] VITALS: BP 120/71; PULSE 97; RESP 16; TEMP 98.1; O2SAT 100
[2017-09-07 19:17] VITALS: BP 98/50; PULSE 63; RESP 18; TEMP 96.7; O2SAT 92
[2017-09-07 23:08] VITALS: BP 112/68; PULSE 74; RESP 18; TEMP 97.9; O2SAT 99
[2017-09-08] MEDS: MORPHINE SULFATE 4 MG/ML INJ IV PUSH PRN ×5 (00:49→15:53)
[2017-09-08] MEDS: ONDANSETRON HCL 4 MG/2 ML VIAL IV PUSH PRN ×4 (00:49→18:07)
[2017-09-08] MEDS: 1/2 NS + KCL 20 MEQ INJ 1,000 ML IV SCH ×2 (03:11→16:01)
[2017-09-08 04:50] VITALS: BP 93/62; PULSE 93; RESP 17; TEMP 98.4; O2SAT 99
[2017-09-08 08:00] VITALS: BP 104/64; PULSE 70; RESP 20; TEMP 98.6; O2SAT 96
[2017-09-08] MEDS: SUCRALFATE 1 GM TAB PO SCH ×4 (08:21→21:15)
[2017-09-08] MEDS: PANTOPRAZOLE SOD 40 MG DELAYED RELEASE TAB PO SCH (08:21)
[2017-09-08] MEDS: SERTRALINE HCL 100 MG TAB PO SCH (09:00)
[2017-09-08] MEDS: TOPIRAMATE 100 MG TAB PO SCH ×2 (09:00→21:18)
[2017-09-08 12:00] VITALS: BP 107/71; PULSE 90; RESP 20; TEMP 98; O2SAT 100
--- NOTE | 2017-09-08 15:20 | PD.PROCEDR ---
GI Procedure PROCEDURE PERFORMED Colonoscopy INDICATION FOR PROCEDURE Anemia PROCEDURE: The procedure, risks and benefits were discussed with Ms. Armstrong and informed consent was obtained. Anesthesia sedated her with Diprivan. She was placed in the left lateral decubitus position. Colonoscopy: The Pentax videoscope was introduced through the rectum and advanced to cecum where the ileocecal valve and appendiceal orifice were identified. Retroflexion was performed in the rectum. Colonic prep was fair to poor FINDINGS: Colonic withdrawal time greater than 6 minutes as the scope was slowly withdrawn colonic mucosa was carefully inspected this was noted to be unremarkable and within normal limits so as retroflexion in rectal examination ESTIMATED BLOOD LOSS: None SPECIMENS REMOVED: None COMPLICATIONS: None IMPRESSION: Normal colonoscopy Limited evaluation PLAN: Supportive care Check small bowel follow-through if negative patient may be discharged from a GI standpoint Follow-up as outpatient for probable capsule endoscopy Vin Atkinson MD Sep 08, 2017 15:20
[2017-09-08 16:00] VITALS: BP 118/73; PULSE 104; RESP 20; TEMP 99; O2SAT 100
--- NOTE | 2017-09-08 16:24 | HHI.PR ---
Subjective Remarks Patient followed due to Abdominal pain and nausea and vomit. status post EGD Stomach with patchy erythema in the antrum but no ulceration or erosions, no blood or bleeding, Colonoscopy poor prep will repeat again in am tomorrow. 09/07: Seen in her bedroom still complaint of abdominal pain not found pathology until now will have Colonoscopy tomorrow and decide by GI specialist if the patient may be discharged. no nausea, vomit or diarrhea. 09/08: Seen by her Primary Gastroenterology specialist Doctor Demetrio Banuelos El- Sayed status post Colonoscopy performed and did not found pathology, recommended to check small bowel with follow through if negative patient may be discharged from GI specialist standpoint and probable will need outpatient Capsule Endoscopy. No nausea, vomit or diarrhea. Objective Vital Signs Date Time Temp Pulse Resp B/P (MAP) Pulse Ox O2 Delivery O2 Flow Rate FiO2 09/08/17 15:18 97.7 99 18 126/94 (105) 100 09/08/17 12:00 98.0 90 20 107/71 (83) 100 09/08/17 08:00 98.6 70 20 104/64 (77) 96 09/08/17 04:50 98.4 93 17 93/62 (72) 99 09/07/17 23:08 97.9 74 18 112/68 (83) 99 09/07/17 19:17 96.7 63 18 98/50 (66) 92 I/O 09/07/17 09/07/17 09/07/17 09/08/17 09/08/17 09/08/17 07:00 15:00 23:00 07:00 15:00 23:00 Intake Total 0 ml 360 ml 0 ml 200 ml Balance 0 ml 360 ml 0 ml 200 ml Intake Oral 0 ml 360 ml 0 ml Other 200 ml # Voids 4 5 3 # Bowel Movements 1 2 2 Result Diagram: 09/07/17 0853 09/06/17 0637 Imaging Last Impressions Abdomen/Pelvis CT 09/02/17 1127 Signed Impressions: Service Date/Time: August 13:02 - CONCLUSION: 1. No acute abnormality is identified to explain the clinical symptoms. 2. Stable nonspecific pleural-parenchymal process in the right posterior hemithorax. Its stability Ebenezer Haney MD Procedures With Diagnosis of Abdominal pain and nausea and vomit. status post EGD Stomach with patchy erythema in the antrum but no ulceration or erosions, no blood or bleeding, Status post Colonoscopy normal exam Other Results Laboratory Tests Test 09/02/17 08:15 09/02/17 10:59 09/03/17 10:10 09/06/17 06:37 Iron Level 17 MCG/DL Total Iron Binding Capacity 507 MCG/DL Percent Iron Saturation 3.4 % Ferritin 4 NG/ML Lipase 190 U/L Urine Color YELLOW Urine Turbidity HAZY Urine pH 6.5 Urine Specific [place] 1.014 Urine Protein 30 mg/dL Urine Glucose (UA) NEG mg/dL Urine Ketones 10 mg/dL Urine Occult Blood NEG Urine Nitrite NEG Urine Bilirubin NEG Urine Urobilinogen LESS THAN 2.0 MG/DL Urine Leukocyte Esterase NEG Urine RBC LESS THAN 1 /hpf Urine WBC 2 /hpf Urine Squamous Epithelial Cells 10 /hpf Urine Mucus FEW /lpf Microscopic Urinalysis Comment CULT NOT INDICATED Urine Opiates Screen POS Urine Barbiturates Screen NEG Urine Amphetamines Screen NEG Urine Benzodiazepines Screen POS Urine Cocaine Screen NEG Urine Cannabinoids Screen NEG Neutrophils (%) (Auto) 64.5 % Lymphocytes (%) (Auto) 27.0 % Monocytes (%) (Auto) 7.2 % Eosinophils (%) (Auto) 0.1 % Basophils (%) (Auto) 1.2 % Neutrophils # (Auto) 4.4 TH/MM3 Lymphocytes # (Auto) 1.8 TH/MM3 Monocytes # (Auto) 0.5 TH/MM3 Eosinophils # (Auto) 0.0 TH/MM3 Basophils # (Auto) 0.1 TH/MM3 CBC Comment DIFF FINAL Differential Comment Hemoglobin A1c 5.9 % Blood Urea Nitrogen 3 MG/DL 6 MG/DL Creatinine 0.51 MG/DL 0.58 MG/DL Random Glucose 146 MG/DL 89 MG/DL Total Protein 8.4 GM/DL Albumin 3.8 GM/DL Calcium Level 8.8 MG/DL 8.4 MG/DL Magnesium Level 1.9 MG/DL 1.9 MG/DL Alkaline Phosphatase 54 U/L Aspartate Amino Transf (AST/SGOT) 25 U/L Alanine Aminotransferase (ALT/SGPT) 12 U/L Total Bilirubin 0.3 MG/DL Sodium Level 142 MEQ/L 140 MEQ/L Potassium Level 3.2 MEQ/L 3.8 MEQ/L Chloride Level 111 MEQ/L 111 MEQ/L Carbon Dioxide Level 25.0 MEQ/L 20.2 MEQ/L Phosphorus Level 2.5 MG/DL Anion Gap 9 MEQ/L Estimat Glomerular Filtration Rate 142 ML/MIN Test 09/07/17 08:53 White Blood Count 6.3 TH/MM3 Red Blood Count 5.15 MIL/MM3 Hemoglobin 10.3 GM/DL Hematocrit 33.3 % Mean Corpuscular Volume 64.6 FL Mean Corpuscular Hemoglobin 20.0 PG Mean Corpuscular Hemoglobin Concent 31.0 % Red Cell Distribution Width 23.3 % Platelet Count 259 TH/MM3 Mean Platelet Volume 8.6 FL Objective Remarks GENERAL: Obese patient in no acute distress. SKIN: No rashes, ecchymoses or lesions. Cool and dry. CARDIOVASCULAR: Regular rate and rhythm without murmurs, gallops, or rubs. RESPIRATORY: Clear to auscultation. Breath sounds equal bilaterally. No wheezes , rales, or rhonchi. GI: Normal bowel sounds, soft no rigidity, no guarding. I barely touched her and she was already complaining of epigastric tenderness MUSCULOSKELETAL: Extremities without clubbing, cyanosis, or edema. No joint tenderness, effusion, or edema noted. NEUROLOGICAL: Awake and alert. Cranial nerves II through XII intact. Medications and IVs Current Medications Medications (Trade) Dose Ordered Sig/Haley Route Start Time Stop Time Status Last Admin (NS Flush) 2 ml UNSCH PRN IV FLUSH 09/02/17 08:15 09/05/17 02:53 (Zofran Inj) 4 mg Q6HR PRN IV PUSH 09/02/17 17:30 09/08/17 11:00 (Zoloft) 100 mg DAILY PO 09/03/17 09:00 09/07/17 08:01 (Carafate) 1 gm QID PO 09/02/17 18:00 09/08/17 16:02 (Topamax) 100 mg BID PO 09/02/17 21:00 09/07/17 19:47 (Ambien) 5 mg HS PRN PO 09/02/17 18:00 (Vasotec Inj) 1.25 mg Q6H PRN IV PUSH 09/02/17 18:00 (Percocet 5-325 Mg) 1 tab Q4H PRN PO 09/03/17 17:00 09/04/17 23:48 Potassium Chloride/Sodium Chloride 1,000 ml @ 100 mls/hr Q10H IV 09/04/17 11:00 09/08/17 16:01 (Morphine Inj) 4 mg Q3H PRN IV PUSH 09/04/17 11:45 09/08/17 15:53 (Protonix) 40 mg DAILY PO 09/05/17 09:00 09/08/17 08:21 Lactated Ringer's 1,000 ml @ 30 mls/hr Q24H PRN IV 09/06/17 00:30 09/09/17 00:29 09/06/17 10:30 Sodium Chloride 500 ml @ 30 mls/hr [id number] PRN IV 09/06/17 00:30 09/09/17 00:29 (Lopressor) 25 mg SENIOR FINANCE MANAGER PRN PO 09/06/17 00:30 09/09/17 00:29 (Betadine 5% Antisepsis Kit) 1 applic SENIOR FINANCE MANAGER PRN EACH NARE 09/06/17 00:30 09/09/17 00:29 (Chlorhexidine 2% Cloth) 3 pack SENIOR FINANCE MANAGER PRN TOPICAL 09/06/17 00:30 09/09/17 00:29 (NovoLIN R INJ) See Protocol Table ... SENIOR FINANCE MANAGER PRN SQ 09/06/17 00:30 09/09/17 00:29 (KlonoPIN) 1 mg TID PRN PO 09/06/17 14:45 09/07/17 19:47 A/P Assessment and Plan Abdominal pain associated with intractable nausea Abdominal exam no guarding or rigidity. CT of the abdomen without acute pathology. GES in October normal. - Pain management, PPI, Sucralfate, history of IVDA, Status post EGD Stomach with patchy erythema in the antrum but no ulceration or erosions, no blood or bleeding, Colonoscopy performed and no pathology as per Doctor Demetrio will perform small follow through if normal discharge home and follow for probable outpatient Capsule Endoscopy. Hypertension controlled. has Hypotension on hold Lisinopril Severe iron deficiency anemia Most likely secondary to heavy cycles. - s/p IV Venofer 200 mg 1. - Start iron supplements by mouth when tolerates. PPx: Patient up and ambulating. Teds for DVT prophylaxis Discharge Planning Awaiting final by GI specialist for discharge Ernesto Diaz MD Sep 08, 2017 16:24
[2017-09-08] MEDS ORDERED: BISACODYL EC 5 MG TABEC PO ONE ×2 (18:30→21:00)
[2017-09-08] MEDS ORDERED: MAGNESIUM CITRATE SOLN 300 ML BTL PO ONE (18:30)
[2017-09-08] MEDS: MORPHINE SULFATE 2 MG/ML INJ IV PUSH PRN ×2 (19:18→22:19)
[2017-09-08 19:54] VITALS: O2SAT 99
[2017-09-08 20:10] VITALS: BP 119/80; PULSE 88; RESP 16; TEMP 98.8; O2SAT 100
[2017-09-09] VITALS: BP 101/81; PULSE 103; RESP 20; TEMP 98.5; O2SAT 100
[2017-09-09] MEDS: 1/2 NS + KCL 20 MEQ INJ 1,000 ML IV SCH ×3 (01:00→21:01)
[2017-09-09] MEDS: ONDANSETRON HCL 4 MG/2 ML VIAL IV PUSH PRN ×4 (01:12→21:00)
[2017-09-09] MEDS: MORPHINE SULFATE 2 MG/ML INJ IV PUSH PRN ×6 (03:00→21:00)
[2017-09-09 04:00] VITALS: BP 107/72; PULSE 114; RESP 20; TEMP 98.6; O2SAT 99
[2017-09-09 08:00] VITALS: BP 122/69; PULSE 122; PULSE 124; RESP 16; TEMP 97.6; TEMP 98.4; O2SAT 100; O2SAT 98
[2017-09-09] MEDS: SODIUM CHLORIDE 0.9% FLUSH 10 ML FLUSH IV FLUSH PRN (08:24)
[2017-09-09] MEDS: SUCRALFATE 1 GM TAB PO SCH ×4 (09:00→21:00)
--- NOTE | 2017-09-09 09:47 | RADRPT ---
EXAM DATE/TIME: 09/09/2017 08:48 [facility] COMPARISON: No previous studies available for comparison. INDICATIONS : Anemia. Attempted small bowel MEDICAL HISTORY : Hypertension. SURGICAL HISTORY : Tubal ligation. ENCOUNTER: Subsequent ACUITY: 4 - 6 days PAIN SCORE: 3/10 LOCATION: Abdomen. FINDINGS: Examination of the abdomen demonstrates small amount of contrast within a nondistended stomach. There is no progression of contrast into the small intestinal tract. It does show gas pattern is otherwise unremarkable without significant ileus. There is no significant mass effect. CONCLUSION: Unable to complete small bowel series do to emesis. No evidence of significant ileus. Miles Aranda MD on September 09, 2017 at 9:43 Board Certified Radiologist. This report was verified electronically.
[2017-09-09 11:51] LABS: HEMATOCRIT 36.8 % (35.0-46.0); MEAN CELL VOLUME 65.9 FL (80.0-100.0); MEAN CORPUSCULAR HEMOGLOBIN 20.6 PG (27.0-34.0); MEAN CORPUSCULAR HGB CONC 31.2 % (32.0-36.0); PLATELET COUNT 267 TH/MM3 (150-450); RED BLOOD COUNT 5.59 MIL/MM3 (4.00-5.30); RED CELL DISTRIBUTION WIDTH 24.6 % (11.6-17.2); REVIEW FLAG FINAL; WHITE BLOOD COUNT 8.8 TH/MM3 (4.0-11.0)
[2017-09-09] MEDS: TOPIRAMATE 100 MG TAB PO SCH ×2 (12:20→21:02)
[2017-09-09] MEDS: SERTRALINE HCL 100 MG TAB PO SCH (12:20)
[2017-09-09] MEDS: PANTOPRAZOLE SOD 40 MG DELAYED RELEASE TAB PO SCH (12:20)
--- NOTE | 2017-09-09 12:41 | HHI.PR ---
Subjective Remarks Patient followed due to Abdominal pain and nausea and vomit. status post EGD Stomach with patchy erythema in the antrum but no ulceration or erosions, no blood or bleeding, Colonoscopy poor prep will repeat again in am tomorrow. 09/07: Seen in her bedroom still complaint of abdominal pain not found pathology until now will have Colonoscopy tomorrow and decide by GI specialist if the patient may be discharged. no nausea, vomit or diarrhea. 09/08: Seen by her Primary Gastroenterology specialist Doctor Demetrio Banuelos El- Sayed status post Colonoscopy performed and did not found pathology, recommended to check small bowel with follow through if negative patient may be discharged from GI specialist standpoint and probable will need outpatient Capsule Endoscopy. 09/09: Stable in her bedroom, states not able to eat well due to Nausea and vomit, complaint of abdominal pain, added Metoclopramide not able to complete the Abdominal X ray follow through due to vomit. Objective Vital Signs Date Time Temp Pulse Resp B/P (MAP) Pulse Ox O2 Delivery O2 Flow Rate FiO2 09/09/17 08:00 97.6 124 16 98 09/09/17 04:00 98.6 114 20 107/72 (84) 99 09/09/17 00:00 98.5 103 20 101/81 (88) 100 09/08/17 20:10 98.8 88 16 119/80 (93) 100 09/08/17 19:54 99 21 09/08/17 16:00 99.0 104 20 118/73 (88) 100 09/08/17 15:18 97.7 99 18 126/94 (105) 100 I/O 09/08/17 09/08/17 09/08/17 09/09/17 09/09/17 09/09/17 07:00 15:00 23:00 07:00 15:00 23:00 Intake Total 0 ml 440 ml 240 ml Output Total 200 ml Balance 0 ml 440 ml 40 ml Intake Oral 0 ml 240 ml 240 ml Other 200 ml Output Urine Total 200 ml # Voids 3 2 2 # Bowel Movements 2 2 0 Result Diagram: 09/09/17 1122 09/06/17 0637 Imaging Last Impressions Abdomen X-Ray 09/09/17 0000 Signed Impressions: Service Date/Time: August 08:48 - CONCLUSION: Unable to complete small bowel series do to emesis. No evidence of significant ileus. Miles Aranda MD Abdomen/Pelvis CT 09/02/17 1127 Signed Impressions: Service Date/Time: August 13:02 - CONCLUSION: 1. No acute abnormality is identified to explain the clinical symptoms. 2. Stable nonspecific pleural-parenchymal process in the right posterior hemithorax. Its stability Ebenezer Haney MD Procedures With Diagnosis of Abdominal pain and nausea and vomit. status post EGD Stomach with patchy erythema in the antrum but no ulceration or erosions, no blood or bleeding, Status post Colonoscopy normal exam Other Results Laboratory Tests Test 09/02/17 08:15 09/02/17 10:59 09/03/17 10:10 09/06/17 06:37 Iron Level 17 MCG/DL Total Iron Binding Capacity 507 MCG/DL Percent Iron Saturation 3.4 % Ferritin 4 NG/ML Lipase 190 U/L Urine Color YELLOW Urine Turbidity HAZY Urine pH 6.5 Urine Specific [place] 1.014 Urine Protein 30 mg/dL Urine Glucose (UA) NEG mg/dL Urine Ketones 10 mg/dL Urine Occult Blood NEG Urine Nitrite NEG Urine Bilirubin NEG Urine Urobilinogen LESS THAN 2.0 MG/DL Urine Leukocyte Esterase NEG Urine RBC LESS THAN 1 /hpf Urine WBC 2 /hpf Urine Squamous Epithelial Cells 10 /hpf Urine Mucus FEW /lpf Microscopic Urinalysis Comment CULT NOT INDICATED Urine Opiates Screen POS Urine Barbiturates Screen NEG Urine Amphetamines Screen NEG Urine Benzodiazepines Screen POS Urine Cocaine Screen NEG Urine Cannabinoids Screen NEG Neutrophils (%) (Auto) 64.5 % Lymphocytes (%) (Auto) 27.0 % Monocytes (%) (Auto) 7.2 % Eosinophils (%) (Auto) 0.1 % Basophils (%) (Auto) 1.2 % Neutrophils # (Auto) 4.4 TH/MM3 Lymphocytes # (Auto) 1.8 TH/MM3 Monocytes # (Auto) 0.5 TH/MM3 Eosinophils # (Auto) 0.0 TH/MM3 Basophils # (Auto) 0.1 TH/MM3 CBC Comment DIFF FINAL Differential Comment Hemoglobin A1c 5.9 % Blood Urea Nitrogen 3 MG/DL 6 MG/DL Creatinine 0.51 MG/DL 0.58 MG/DL Random Glucose 146 MG/DL 89 MG/DL Total Protein 8.4 GM/DL Albumin 3.8 GM/DL Calcium Level 8.8 MG/DL 8.4 MG/DL Magnesium Level 1.9 MG/DL 1.9 MG/DL Alkaline Phosphatase 54 U/L Aspartate Amino Transf (AST/SGOT) 25 U/L Alanine Aminotransferase (ALT/SGPT) 12 U/L Total Bilirubin 0.3 MG/DL Sodium Level 142 MEQ/L 140 MEQ/L Potassium Level 3.2 MEQ/L 3.8 MEQ/L Chloride Level 111 MEQ/L 111 MEQ/L Carbon Dioxide Level 25.0 MEQ/L 20.2 MEQ/L Phosphorus Level 2.5 MG/DL Anion Gap 9 MEQ/L Estimat Glomerular Filtration Rate 142 ML/MIN Test 09/09/17 11:22 White Blood Count 8.8 TH/MM3 Red Blood Count 5.59 MIL/MM3 Hemoglobin 11.5 GM/DL Hematocrit 36.8 % Mean Corpuscular Volume 65.9 FL Mean Corpuscular Hemoglobin 20.6 PG Mean Corpuscular Hemoglobin Concent 31.2 % Red Cell Distribution Width 24.6 % Platelet Count 267 TH/MM3 Mean Platelet Volume 9.1 FL Objective Remarks GENERAL: Obese patient in no acute distress. SKIN: No rashes, ecchymoses or lesions. Cool and dry. CARDIOVASCULAR: Regular rate and rhythm without murmurs, gallops, or rubs. RESPIRATORY: Clear to auscultation. Breath sounds equal bilaterally. No wheezes , rales, or rhonchi. GI: Normal bowel sounds, soft no rigidity, no guarding. I barely touched her and she was already complaining of epigastric tenderness MUSCULOSKELETAL: Extremities without clubbing, cyanosis, or edema. No joint tenderness, effusion, or edema noted. NEUROLOGICAL: Awake and alert. Cranial nerves II through XII intact. Medications and IVs Current Medications Medications (Trade) Dose Ordered Sig/Haley Route Start Time Stop Time Status Last Admin (NS Flush) 2 ml UNSCH PRN IV FLUSH 09/02/17 08:15 09/09/17 08:24 (Zofran Inj) 4 mg Q6HR PRN IV PUSH 09/02/17 17:30 09/09/17 08:16 (Zoloft) 100 mg DAILY PO 09/03/17 09:00 09/09/17 12:20 (Carafate) 1 gm QID PO 09/02/17 18:00 12/14/17 09:00 (Topamax) 100 mg BID PO 09/02/17 21:00 09/09/17 12:20 (Ambien) 5 mg HS PRN PO 09/02/17 18:00 (Vasotec Inj) 1.25 mg Q6H PRN IV PUSH 09/02/17 18:00 (Percocet 5-325 Mg) 1 tab Q4H PRN PO 09/03/17 17:00 09/04/17 23:48 Potassium Chloride/Sodium Chloride 1,000 ml @ 100 mls/hr Q10H IV 09/04/17 11:00 09/09/17 12:22 (Protonix) 40 mg DAILY PO 09/05/17 09:00 09/09/17 12:20 (KlonoPIN) 1 mg TID PRN PO 09/06/17 14:45 09/07/17 19:47 (Morphine Inj) 2 mg Q3H PRN IV PUSH 09/08/17 17:45 09/09/17 12:17 A/P Assessment and Plan Abdominal pain associated with intractable nausea Abdominal exam no guarding or rigidity. CT of the abdomen without acute pathology. GES in October normal. - Pain management, PPI, Sucralfate, history of IVDA, Status post EGD Stomach with patchy erythema in the antrum but no ulceration or erosions, no blood or bleeding, Colonoscopy performed and no pathology as per Doctor Demetrio will perform small follow through if normal discharge home and follow for probable outpatient Capsule Endoscopy. was not able to complete the abdominal x ray follow through due to vomit, added Metoclopramide. Hypertension controlled. Severe iron deficiency anemia Most likely secondary to heavy cycles. - s/p IV Venofer 200 mg 1. - Start iron supplements by mouth when tolerates. PPx: Patient up and ambulating. Teds for DVT prophylaxis Discharge Planning Awaiting final by GI specialist for discharge Ernesot Diaz MD Sep 09, 2017 12:41
--- NOTE | 2017-09-09 13:57 | HHI.GIFU ---
Subjective Remarks Pt lying in bed, complaining of continued nausea and vomiting today. Has not eaten because she is afraid of throwing up. Continue mid lower and upper abdomen pain. (Jennie De La Rosa) Objective Vitals I&O Vital Signs Date Time Temp Pulse Resp B/P (MAP) Pulse Ox O2 Delivery O2 Flow Rate FiO2 09/09/17 08:00 97.6 124 16 98 09/09/17 04:00 98.6 114 20 107/72 (84) 99 09/09/17 00:00 98.5 103 20 101/81 (88) 100 09/08/17 20:10 98.8 88 16 119/80 (93) 100 09/08/17 19:54 99 21 09/08/17 16:00 99.0 104 20 118/73 (88) 100 09/08/17 15:18 97.7 99 18 126/94 (105) 100 I/O 09/08/17 09/08/17 09/08/17 09/09/17 09/09/17 09/09/17 07:00 15:00 23:00 07:00 15:00 23:00 Intake Total 0 ml 440 ml 240 ml Output Total 200 ml Balance 0 ml 440 ml 40 ml Intake Oral 0 ml 240 ml 240 ml Other 200 ml Output Urine Total 200 ml # Voids 3 2 2 # Bowel Movements 2 2 0 Laboratory Laboratory Tests Test 09/09/17 11:22 White Blood Count 8.8 Red Blood Count 5.59 Hemoglobin 11.5 Hematocrit 36.8 Mean Corpuscular Volume 65.9 Mean Corpuscular Hemoglobin 20.6 Mean Corpuscular Hemoglobin Concent 31.2 Red Cell Distribution Width 24.6 Platelet Count 267 Mean Platelet Volume 9.1 Imaging Last Impressions Abdomen X-Ray 09/09/17 0000 Signed Impressions: Service Date/Time: August 08:48 - CONCLUSION: Unable to complete small bowel series do to emesis. No evidence of significant ileus. Miles Aranda MD Abdomen/Pelvis CT 09/02/17 1127 Signed Impressions: Service Date/Time: August 13:02 - CONCLUSION: 1. No acute abnormality is identified to explain the clinical symptoms. 2. Stable nonspecific pleural-parenchymal process in the right posterior hemithorax. Its stability Ebenezer Haeny MD Physical Exam HEENT: Normocephalic; atraumatic CHEST: CTA CARDIAC: RRR ABDOMEN: Soft, nondistended, epigastric and lower mid abdomen TTP; no hepatosplenomegaly; bowel sounds active x 4. EXTREMITIES: No clubbing, cyanosis, or edema. SKIN: Normal; no rash; no jaundice. [employer]: No focal deficits; alert and oriented times three. (Jennie De La Rosa) Assessment and Plan Plan Plan ASSESSMENT: - Anemia, microcytic, hypochromic. Patient does report heavy menstrual cycles. HH 11.5/36.8. Iron 17, TIBC 507, % saturation 3.4, Ferritin 4. EGD (09/06) --> Gastritis. Biopsy pending. Colonoscopy (09/07) --> Normal colon. SBFT (09/09) --> Unable to complete small bowel series due to emesis. No evidence of significant ileus. Pt has had GES done in the past which showed normal emptying. PPI. - Abdominal pain with N/V- CT abdomen/pelvis W IV contrast (09/02) --> No actue abnormality is identified to explain clinic symptoms. Stable nonspecific pleural-parenchymal process in the right posterior hemithorax. Carafate. Reglan. - Hypertension, per attending PLAN: - Biopsy from EGD pending - Continue Reglan - Continue Protonix - Continue Carafate - Monitor H/H - Supportive care - No further recommendations at this time, GI will sign off, please reconsult as needed Patient has been seen and examined by myself and Dr. Atkinson and this note is written on his behalf (Jennie De La Rosa) Physician Comments Patient seen and examined Agree with above Continue with current supportive care Monitor labs Patient unable to tolerate the small bowel follow-through study Patient can follow up with GI as an outpatient for possibly pursuing capsule endoscopy At this point not much to add from a GI perspective We will sign off (Vin Atkinson MD) Jennie De La Rosa Sep 09, 2017 13:57 Vin Atkinson MD Sep 09, 2017 20:34
[2017-09-09] MEDS: METOCLOPRAMIDE HCL 10 MG/2 ML VIAL IV PUSH SCH ×2 (15:03→21:00)
[2017-09-09 16:00] VITALS: BP 124/83; PULSE 103; RESP 16; TEMP 98.6; O2SAT 100
[2017-09-09 17:48] VITALS: O2SAT 99
[2017-09-09 21:37] VITALS: BP 122/82; PULSE 84; RESP 18; TEMP 99.2; O2SAT 100
[2017-09-10] VITALS: BP 116/71; PULSE 96; RESP 20; TEMP 99.2; O2SAT 100
[2017-09-10] MEDS: MORPHINE SULFATE 2 MG/ML INJ IV PUSH PRN ×3 (02:18→09:18)
[2017-09-10 04:00] VITALS: BP 110/65; PULSE 92; RESP 20; TEMP 98.3; O2SAT 100
[2017-09-10] MEDS: METOCLOPRAMIDE HCL 10 MG/2 ML VIAL IV PUSH SCH (06:21)
[2017-09-10] MEDS: ONDANSETRON HCL 4 MG/2 ML VIAL IV PUSH PRN (06:21)
[2017-09-10] MEDS: SERTRALINE HCL 100 MG TAB PO SCH (07:45)
[2017-09-10] MEDS: PANTOPRAZOLE SOD 40 MG DELAYED RELEASE TAB PO SCH (07:46)
[2017-09-10] MEDS: TOPIRAMATE 100 MG TAB PO SCH (07:46)
[2017-09-10] MEDS: SUCRALFATE 1 GM TAB PO SCH (07:46)
[2017-09-10] MEDS: clonazePAM 1 MG TAB PO PRN (07:49)
[2017-09-10 08:00] VITALS: BP 93/59; PULSE 101; RESP 16; TEMP 98.8; O2SAT 96
[2017-09-10] MEDS ORDERED: PERC10TA27 PO (11:47)
--- NOTE | 2017-09-10 11:52 | HHI.PR ---
Subjective Remarks Patient followed due to Abdominal pain and nausea and vomit. status post EGD Stomach with patchy erythema in the antrum but no ulceration or erosions, no blood or bleeding, Colonoscopy poor prep will repeat again in am tomorrow. 09/07: Seen in her bedroom still complaint of abdominal pain not found pathology until now will have Colonoscopy tomorrow and decide by GI specialist if the patient may be discharged. no nausea, vomit or diarrhea. 09/08: Seen by her Primary Gastroenterology specialist Doctor Demetrio Banuelos El- Sayed status post Colonoscopy performed and did not found pathology, recommended to check small bowel with follow through if negative patient may be discharged from GI specialist standpoint and probable will need outpatient Capsule Endoscopy. 09/09: Stable in her bedroom, states not able to eat well due to Nausea and vomit, complaint of abdominal pain, added Metoclopramide not able to complete the Abdominal X ray follow through due to vomit. 09/10: Seen in her bedroom, no nausea, vomit or diarrhea, she has appointment with Pain medicine specialist for next Wednesday, asked for pain medicine until next Wednesday, GI specialist Signed off the case. Objective Vital Signs Date Time Temp Pulse Resp B/P (MAP) Pulse Ox O2 Delivery O2 Flow Rate FiO2 09/10/17 08:00 98.8 101 16 93/59 (70) 96 09/10/17 04:00 98.3 92 20 110/65 (80) 100 09/10/17 00:00 99.2 96 20 116/71 (86) 100 09/09/17 21:37 99.2 84 18 122/82 (95) 100 09/09/17 19:21 Room Air 09/09/17 17:48 99 21 09/09/17 16:00 98.6 103 16 124/83 (97) 100 I/O 09/09/17 09/09/17 09/09/17 09/10/17 09/10/17 09/10/17 06:59 14:59 22:59 06:59 14:59 22:59 Intake Total 240 ml 944 ml 1525 ml Output Total 200 ml 400 ml Balance 40 ml 944 ml 1125 ml Intake Oral 240 ml 360 ml 320 ml IV Total 584 ml 1205 ml Output Urine Total 200 ml 400 ml # Voids 5 # Bowel Movements 2 0 Result Diagram: 09/09/17 1122 09/06/17 0637 Imaging Last Impressions Abdomen X-Ray 09/09/17 0000 Signed Impressions: Service Date/Time: August 08:48 - CONCLUSION: Unable to complete small bowel series do to emesis. No evidence of significant ileus. Miles Aranda MD Abdomen/Pelvis CT 09/02/17 1127 Signed Impressions: Service Date/Time: August 13:02 - CONCLUSION: 1. No acute abnormality is identified to explain the clinical symptoms. 2. Stable nonspecific pleural-parenchymal process in the right posterior hemithorax. Its stability Ebenezer Haney MD Procedures With Diagnosis of Abdominal pain and nausea and vomit. status post EGD Stomach with patchy erythema in the antrum but no ulceration or erosions, no blood or bleeding, Status post Colonoscopy normal exam Other Results Laboratory Tests Test 09/02/17 08:15 09/02/17 10:59 09/03/17 10:10 09/06/17 06:37 Iron Level 17 MCG/DL Total Iron Binding Capacity 507 MCG/DL Percent Iron Saturation 3.4 % Ferritin 4 NG/ML Lipase 190 U/L Urine Color YELLOW Urine Turbidity HAZY Urine pH 6.5 Urine Specific [place] 1.014 Urine Protein 30 mg/dL Urine Glucose (UA) NEG mg/dL Urine Ketones 10 mg/dL Urine Occult Blood NEG Urine Nitrite NEG Urine Bilirubin NEG Urine Urobilinogen LESS THAN 2.0 MG/DL Urine Leukocyte Esterase NEG Urine RBC LESS THAN 1 /hpf Urine WBC 2 /hpf Urine Squamous Epithelial Cells 10 /hpf Urine Mucus FEW /lpf Microscopic Urinalysis Comment CULT NOT INDICATED Urine Opiates Screen POS Urine Barbiturates Screen NEG Urine Amphetamines Screen NEG Urine Benzodiazepines Screen POS Urine Cocaine Screen NEG Urine Cannabinoids Screen NEG Neutrophils (%) (Auto) 64.5 % Lymphocytes (%) (Auto) 27.0 % Monocytes (%) (Auto) 7.2 % Eosinophils (%) (Auto) 0.1 % Basophils (%) (Auto) 1.2 % Neutrophils # (Auto) 4.4 TH/MM3 Lymphocytes # (Auto) 1.8 TH/MM3 Monocytes # (Auto) 0.5 TH/MM3 Eosinophils # (Auto) 0.0 TH/MM3 Basophils # (Auto) 0.1 TH/MM3 CBC Comment DIFF FINAL Differential Comment Hemoglobin A1c 5.9 % Blood Urea Nitrogen 3 MG/DL 6 MG/DL Creatinine 0.51 MG/DL 0.58 MG/DL Random Glucose 146 MG/DL 89 MG/DL Total Protein 8.4 GM/DL Albumin 3.8 GM/DL Calcium Level 8.8 MG/DL 8.4 MG/DL Magnesium Level 1.9 MG/DL 1.9 MG/DL Alkaline Phosphatase 54 U/L Aspartate Amino Transf (AST/SGOT) 25 U/L Alanine Aminotransferase (ALT/SGPT) 12 U/L Total Bilirubin 0.3 MG/DL Sodium Level 142 MEQ/L 140 MEQ/L Potassium Level 3.2 MEQ/L 3.8 MEQ/L Chloride Level 111 MEQ/L 111 MEQ/L Carbon Dioxide Level 25.0 MEQ/L 20.2 MEQ/L Phosphorus Level 2.5 MG/DL Anion Gap 9 MEQ/L Estimat Glomerular Filtration Rate 142 ML/MIN Test 09/09/17 11:22 White Blood Count 8.8 TH/MM3 Red Blood Count 5.59 MIL/MM3 Hemoglobin 11.5 GM/DL Hematocrit 36.8 % Mean Corpuscular Volume 65.9 FL Mean Corpuscular Hemoglobin 20.6 PG Mean Corpuscular Hemoglobin Concent 31.2 % Red Cell Distribution Width 24.6 % Platelet Count 267 TH/MM3 Mean Platelet Volume 9.1 FL Objective Remarks GENERAL: Obese patient in no acute distress. SKIN: No rashes, ecchymoses or lesions. Cool and dry. CARDIOVASCULAR: Regular rate and rhythm without murmurs, gallops, or rubs. RESPIRATORY: Clear to auscultation. Breath sounds equal bilaterally. No wheezes , rales, or rhonchi. GI: Normal bowel sounds, soft no rigidity, no guarding. I barely touched her and she was already complaining of epigastric tenderness MUSCULOSKELETAL: Extremities without clubbing, cyanosis, or edema. No joint tenderness, effusion, or edema noted. NEUROLOGICAL: Awake and alert. Cranial nerves II through XII intact. Medications and IVs Current Medications Medications (Trade) Dose Ordered Sig/Haley Route Start Time Stop Time Status Last Admin (NS Flush) 2 ml UNSCH PRN IV FLUSH 09/02/17 08:15 09/09/17 08:24 (Zofran Inj) 4 mg Q6HR PRN IV PUSH 09/02/17 17:30 09/10/17 06:21 (Zoloft) 100 mg DAILY PO 09/03/17 09:00 09/10/17 07:45 (Carafate) 1 gm QID PO 09/02/17 18:00 09/10/17 07:46 (Topamax) 100 mg BID PO 09/02/17 21:00 09/10/17 07:46 (Ambien) 5 mg HS PRN PO 09/02/17 18:00 (Vasotec Inj) 1.25 mg Q6H PRN IV PUSH 09/02/17 18:00 (Percocet 5-325 Mg) 1 tab Q4H PRN PO 09/03/17 17:00 09/04/17 23:48 Potassium Chloride/Sodium Chloride 1,000 ml @ 100 mls/hr Q10H IV 09/04/17 11:00 09/09/17 21:01 (Protonix) 40 mg DAILY PO 09/05/17 09:00 09/10/17 07:46 (KlonoPIN) 1 mg TID PRN PO 09/06/17 14:45 09/10/17 07:49 (Reglan Inj) 10 mg Q8HR IV PUSH 09/09/17 14:00 09/10/17 06:21 A/P Assessment and Plan Abdominal pain associated with intractable nausea Abdominal exam no guarding or rigidity. CT of the abdomen without acute pathology. GES in October normal. - Pain management, PPI, Sucralfate, history of IVDA, Status post EGD Stomach with patchy erythema in the antrum but no ulceration or erosions, no blood or bleeding, Colonoscopy performed and no pathology as per Doctor Demetrio will perform small follow through if normal discharge home and follow for probable outpatient Capsule Endoscopy. was not able to complete the abdominal x ray follow through due to vomit, added Metoclopramide. GI specialist signed off patient asymptomatic today asking for Pain medicine. probable cause of her actual symptomatology Drug seeking behavior, Chronic pain syndrome and narcotic dependence. Hypertension controlled. Severe iron deficiency anemia Most likely secondary to heavy cycles. - s/p IV Venofer 200 mg 1. continue Iron by mouth PPx: Patient up and ambulating. Teds for DVT prophylaxis Discharge Planning Discussed with charge Nurse, GI specialist signed off he case Seen in the presence at all times of Nurse Miss Di appreciated. Discharge Home Ernesto Diaz MD Sep 10, 2017 11:52
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
[2017-09-10] MEDS ORDERED: NU-IRON PO (11:55)
== END 2017-09-10 16:04 | disposition home or self-care (01) | DRG 392 ==
LOC: NEPC 08:03 → NEDA 14:34 → NEPFCDU 15:28 → OBSVTOIN 09-03 16:57 → N06B 09-04 17:18
PROVIDERS: ADMIT Internal Medicine; ATTEND Internal Medicine
PROC: 0DJD8ZZ Inspection of Lower Intestinal Tract, Via Natural or Artificial Opening Endoscopic (ICD-10-PCS; 2017-09-06)
PROC: 0DB98ZX Excision of Duodenum, Via Natural or Artificial Opening Endoscopic, Diagnostic (ICD-10-PCS; principal; 2017-09-06 11:51)
PROC: 0DB68ZX Excision of Stomach, Via Natural or Artificial Opening Endoscopic, Diagnostic (ICD-10-PCS; 2017-09-06 11:51)
PROC: 0DJD8ZZ Inspection of Lower Intestinal Tract, Via Natural or Artificial Opening Endoscopic (ICD-10-PCS; 2017-09-08)
DX: K29.70 Gastritis, unspecified, without bleeding (principal); K92.0 Hematemesis; F11.20 Opioid dependence, uncomplicated; I10 Essential (primary) hypertension; F17.200 Nicotine dependence, unspecified, uncomplicated; D50.9 Iron deficiency anemia, unspecified; F32.9 Major depressive disorder, single episode, unspecified; E87.6 Hypokalemia; D57.3 Sickle-cell trait; F41.9 Anxiety disorder, unspecified; N92.0 Excessive and frequent menstruation with regular cycle; Z76.5 Malingerer [conscious simulation]; G89.21 Chronic pain due to trauma; M54.9 Dorsalgia, unspecified; Z23 Encounter for immunization
CPT/HCPCS: 74020; 74177; 76937; 80048; 80053; 80307; 81001; 82728; 83036; 83540; 83550; 83690; 83735; 84100; 84703; 85025; 85027; 88305; 88312; 90686; 90732; C9113; J1100; J1756; J1885; J2250; J2270; J2405; J2550; J2765; J3010; J3410; J3480; J7030; J7120; Q2038; Q9967

== ENCOUNTER 2017-09-28 22:36 | Emergency (ER) | payer MEDICAID ==
[~2017-09-28] VITALS: Ht 154.9 cm; Wt 78.0 kg
[~2017-09-28 22:36] MED LIST changes: -HYDR-3516 PO; -LISI10TA3 PO; +NU-IRON PO; +PERC10TA27 PO
[2017-09-28 22:49] VITALS: BP 129/71; PULSE 90; RESP 18; TEMP 98.4
[2017-09-28] MEDS ORDERED: LIDOCAINE VISCOUS 2% SOLN 15 ML UDC PO ONE (23:00)
[2017-09-28] MEDS ORDERED: ONDANSETRON HCL 4 MG/2 ML VIAL IVP ONE (23:00)
[2017-09-28] MEDS ORDERED: SODIUM CHLORIDE 0.9% FLUSH 10 ML FLUSH IV FLUSH PRN (23:00)
[2017-09-28] MEDS ORDERED: ALUMINUM/MAGNESIUM/SIMETH 30 ML CUP PO ONE (23:00)
[2017-09-28] MEDS ORDERED: FAMOTIDINE 20 MG/2 ML VIAL IV PUSH ONE (23:00)
[2017-09-28 23:16] LABS: AUTOMATED NEUTROPHIL # 3.8 TH/MM3 (1.8-7.7); BASOPHIL # 0.1 TH/MM3 (0-0.2); BASOPHIL % 0.9 % (0.0-2.0); EOSINOPHIL # 0.2 TH/MM3 (0-0.4); EOSINOPHIL % 2.8 % (0.0-4.0); HEMATOCRIT 31.5 % (35.0-46.0); HEMOGLOBIN 9.7 GM/DL (11.6-15.3); LYMPH % 45.4 % (9.0-44.0); LYMPHOCYTE # 3.8 TH/MM3 (1.0-4.8); MEAN CELL VOLUME 67.8 FL (80.0-100.0); MEAN CORPUSCULAR HEMOGLOBIN 20.9 PG (27.0-34.0); MEAN CORPUSCULAR HGB CONC 30.9 % (32.0-36.0); MEAN PLATELET VOLUME 8.3 FL (7.0-11.0); MONO % 6.4 % (0.0-8.0); MONOCYTE # 0.5 TH/MM3 (0-0.9); NEUT % 44.5 % (16.0-70.0); PLATELET COUNT 393 TH/MM3 (150-450); RED BLOOD COUNT 4.64 MIL/MM3 (4.00-5.30); RED CELL DISTRIBUTION WIDTH 26.7 % (11.6-17.2); WHITE BLOOD COUNT 8.5 TH/MM3 (4.0-11.0)
[2017-09-28 23:30] LABS: ALBUMIN 3.7 GM/DL (3.4-5.0); ALT (GPT) 17 U/L (10-53); AST (GOT) 12 U/L (15-37); BLOOD UREA NITROGEN 7 MG/DL (7-18); CALCIUM 8.9 MG/DL (8.5-10.1); CHLORIDE 105 MEQ/L (98-107); CREATININE 0.56 MG/DL (0.50-1.00); GLOMERULAR FILTRATION RATE 147 ML/MIN (>89); GLUCOSE,RANDOM 102 MG/DL (74-106); LIPASE 220 U/L (73-393); SODIUM (NA) 139 MEQ/L (136-145)
[2017-09-28 23:34] LABS: ALKALINE PHOSPHATASE 70 U/L (45-117); TOTAL BILIRUBIN ADULT 0.2 MG/DL (0.2-1.0); TOTAL PROTEIN 8.1 GM/DL (6.4-8.2)
[2017-09-28 23:37] LABS: OVALOCYTES 1+ (NORMAL)
[2017-09-29] MEDS ORDERED: HALOPERIDOL LACTATE 5 MG/ML AMP IM ONE
[2017-09-29] MEDS ORDERED: diphenhydrAMINE HCL 50 MG/ML VIAL IV PUSH ONE
[2017-09-29] MEDS ORDERED: LORazepam 2 MG/ML VIAL IV PUSH ONE
[2017-09-29 00:58] LABS: BACTERIA, URINE OCC /hpf; BILIRUBIN, URINE NEG (NEG); BLOOD, URINE NEG (NEG); GLUCOSE,URINE NEG (NEG); KETONE, URINE NEG (NEG); NITRITE,URINE NEG (NEG); SQUAMOUS EPITHELIAL CELL URINE 12 /hpf (0-5); URINE COLOR LIGHT-YELLOW (YELLW/STRAW); URINE LEUKOCYTE ESTERASE NEG (NEG)
--- NOTE | 2017-09-29 01:58 | PD ---
HPI . Abdominal pain Chief Complaint: Abdominal Pain Time Seen by Provider: 22:52 Travel History International Travel<30 days: No Contact w/Intl Traveler<30days: No Traveled to known affect area: No History of Present Illness HPI 37-year-old female with a history of gastritis, status post recent admission to another hospital for 9 days for same, is under pain management care, presents Amin writhing on the stretcher complaining of abdominal pain acute epigastric. Patient is vomiting pink material, consistent with the red Powerade she had been drinking. Patient denies any hematemesis or melena. Patient secondary to discomfort is not cooperative with exam currently. PFSH Past Medical History Narrative Medical Past medical history reviewed Hx Anticoagulant Therapy: No Anxiety: Yes Depression: Yes Cancer: No Cardiovascular Problems: No High Cholesterol: No Chemotherapy: No Chest Pain: Yes (CHRONIC FOR 3 YEARS) Cerebrovascular Accident: No Diabetes: No Diminished Hearing: No Endocrine: No Genitourinary: Yes Headaches: Yes Hypertension: Yes Immune Disorder: No Musculoskeletal: Yes Neurologic: Yes Psychiatric: Yes Reproductive: No Respiratory: Yes (HX OF PNEUMOTHORACES) Integumentary: Yes Immunizations Current: Yes Migraines: Yes Seizures: Yes (ONCE, NOT ON MEDS) Sickle Cell Disease: Yes (TRAIT) ?: Not : 9 Para: 9 Miscarriage: 0 : 0 Ovarian Cysts: Yes Tubal Ligation: Yes Past Surgical History Cardiac Surgery: Yes (CHEST TUBE 2006) Section: Yes (02/13/2010 X 1) Gynecologic Surgery: Yes () Thoracic Surgery: Yes (PNEUMOTHORAX) Other Surgery: Yes (right chest tube in aug 03 FOR SPONT. PNEUMOTHORAX) Social History Alcohol Use: No (pt. denies) Tobacco Use: Yes (5 CIGS/DAY) Substance Use: No Allergies-Medications (Allergen,Severity, Reaction): Coded Allergies: No Known Allergies (Verified Adverse Reaction, Unknown, 09/28/17) Reported Meds & Prescriptions Reported Meds & Active Scripts Active Percocet (Oxycodone-Acetaminophen) 10-325 mg Tab 1 Tab PO Q6H PRN DO NOT USE THIS MEDICINE IF YOU WILL DRIVE A CAR OR USE A MACHINE ONLY USE IT WHEN RESTING AT HOME. Carafate (Sucralfate) 1 Gm Tab 1 Gm PO QID On empty stomach Omeprazole 40 Mg Cap 40 Mg PO DAILY Clonidine (Clonidine HCl) 0.1 Mg Tab 0.1 Mg PO DAILY PRN Ambien (Zolpidem Tartrate) 10 Mg Tab 5 Mg PO HS PRN Reported Clonazepam 1 Mg Tab 1 Mg PO TID Narrative Medication Allergies medications reviewed Review of Systems Except as stated in HPI: all other systems reviewed are Neg General / Constitutional: No: Fever Eyes: No: Visual changes HENT: No: Headaches Cardiovascular: No: Chest Pain or Discomfort Respiratory: No: Shortness of Breath Gastrointestinal: Positive: Nausea, Vomiting, Abdominal Pain, No: Hematemesis, Hematochezia Genitourinary: No: Dysuria Musculoskeletal: No: Pain Skin: No Rash Neurologic: No: Weakness Psychiatric: No: Depression Endocrine: No: Polydipsia Hematologic/Lymphatic: No: Easy Bruising Physical Exam Narrative GENERAL: Awake and alert oriented 3 difficult exam secondary to poor patient compliance secondary to discomfort and concomitant vomiting SKIN: Warm and dry. Color is normal no diaphoresis S pallor HEAD: Atraumatic. Normocephalic. EYES: Pupils equal and round. No scleral icterus. No injection or drainage. ENT: No nasal bleeding or discharge. Mucous membranes pink and moist. NECK: Trachea midline. No JVD. Supple full range of motion CARDIOVASCULAR: Regular rate and rhythm. S1-S2 no murmurs or gallops RESPIRATORY: No accessory muscle use. Clear to auscultation. Breath sounds equal bilaterally. GASTROINTESTINAL: Abdomen soft, non-tender, nondistended. Hepatic and splenic margins not palpable. MUSCULOSKELETAL: Extremities without clubbing, cyanosis, or edema. No obvious deformities. NEUROLOGICAL: Awake and alert. No obvious cranial nerve deficits. Motor grossly within normal limits. Five out of 5 muscle strength in the arms and legs. Normal speech. PSYCHIATRIC: Appropriate mood and affect; insight and judgment normal. Data Data Last Documented VS Vital Signs Date Time Temp Pulse Resp B/P (MAP) Pulse Ox O2 Delivery O2 Flow Rate FiO2 09/28/17 22:49 98.4 90 18 129/71 (90) Orders Orders Beta Hcg (Quant/Titer) (09/28/17 22:52) Complete Blood Count With Diff (09/28/17 22:52) Comprehensive Metabolic Panel (09/28/17 22:52) Lipase (09/28/17 22:52) Urinalysis - C+S If Indicated (09/28/17 22:52) Iv Access Insert/Monitor (09/28/17 22:52) Ecg Monitoring (09/28/17 22:52) Oximetry (09/28/17 22:52) Ondansetron Inj (Zofran Inj) (09/28/17 23:00) Sodium Chloride 0.9% Flush (Ns Flush) (09/28/17 23:00) Famotidine Inj (Pepcid Inj) (09/28/17 23:00) Al-Mag Hy-Si 40-40-4 Mg/Ml Liq (Mag-Al P (09/28/17 23:00) Lidocaine 2% Viscous (Xylocaine 2% Visco (09/28/17 23:00) Diphenhydramine Inj (Benadryl Inj) (09/29/17 00:00) Haloperidol Inj (Haldol Inj) (09/29/17 00:00) Lorazepam Inj (Ativan Inj) (09/29/17 00:00) Sucralfate (Carafate) (09/29/17 02:30) Labs Laboratory Tests Test 09/28/17 23:05 09/29/17 00:30 White Blood Count 8.5 TH/MM3 Red Blood Count 4.64 MIL/MM3 Hemoglobin 9.7 GM/DL Hematocrit 31.5 % Mean Corpuscular Volume 67.8 FL Mean Corpuscular Hemoglobin 20.9 PG Mean Corpuscular Hemoglobin Concent 30.9 % Red Cell Distribution Width 26.7 % Platelet Count 393 TH/MM3 Mean Platelet Volume 8.3 FL Neutrophils (%) (Auto) 44.5 % Lymphocytes (%) (Auto) 45.4 % Monocytes (%) (Auto) 6.4 % Eosinophils (%) (Auto) 2.8 % Basophils (%) (Auto) 0.9 % Neutrophils # (Auto) 3.8 TH/MM3 Lymphocytes # (Auto) 3.8 TH/MM3 Monocytes # (Auto) 0.5 TH/MM3 Eosinophils # (Auto) 0.2 TH/MM3 Basophils # (Auto) 0.1 TH/MM3 CBC Comment AUTO DIFF Differential Comment AUTO DIFF CONFIRMED Ovalocytes 1+ Blood Urea Nitrogen 7 MG/DL Creatinine 0.56 MG/DL Random Glucose 102 MG/DL Total Protein 8.1 GM/DL Albumin 3.7 GM/DL Calcium Level 8.9 MG/DL Alkaline Phosphatase 70 U/L Aspartate Amino Transf (AST/SGOT) 12 U/L Alanine Aminotransferase (ALT/SGPT) 17 U/L Total Bilirubin 0.2 MG/DL Sodium Level 139 MEQ/L Potassium Level 4.0 MEQ/L Chloride Level 105 MEQ/L Carbon Dioxide Level 25.0 MEQ/L Anion Gap 9 MEQ/L Estimat Glomerular Filtration Rate 147 ML/MIN Lipase 220 U/L Human Chorionic Gonadotropin, Quant LESS THAN 1 MIU/ML Urine Color LIGHT-YELLOW Urine Turbidity HAZY Urine pH 6.0 Urine Specific Cranks 1.006 Urine Protein NEG mg/dL Urine Glucose (UA) NEG mg/dL Urine Ketones NEG mg/dL Urine Occult Blood NEG Urine Nitrite NEG Urine Bilirubin NEG Urine Urobilinogen LESS THAN 2.0 MG/DL Urine Leukocyte Esterase NEG Urine WBC 3 /hpf Urine Squamous Epithelial Cells 12 /hpf Urine Bacteria OCC /hpf Microscopic Urinalysis Comment CULT NOT INDICATED MDM Medical Decision Making Medical Screen Exam Complete: Yes Emergency Medical Condition: Yes Medical Record Reviewed: Yes Differential Diagnosis Gastritis, reflux, pancreatitis, colitis, choledocholithiasis, biliary colic Narrative Course Patient's laboratory examination reviewed, no significant abnormalities. Patient is slightly anemic has history of same Patient markedly improved with antiemetics IV as given. H2 blockers, Carafate given. Pain medications Ultram offered. Patient is under the care of pain med clinic and has a contract for same. Patient is requesting narcotic medication for her epigastric pain. Patient sleeping comfortably in stretcher with her boyfriend. Patient is not complaining of pain. Discharge Diagnosis Primary Impression: Abdominal pain Qualified Codes: R10.13 - Epigastric pain Additional Impressions: Gastritis Qualified Codes: K29.50 - Unspecified chronic gastritis without bleeding Anemia Qualified Codes: D64.9 - Anemia, unspecified Patient Instructions: Gastritis (ED), General Instructions Additional Instructions: Carafate 1 g 4 times daily after meals and before bed. Follow-up with your pulp maker and pain sales and training specialist. Return for worsening Scripts Sucralfate (Carafate) 1 Gram Tab 1 GM PO QID for Ulcer Prevention, #120 TAB 0 Refills On empty stomach Prov: Calvin Malone MD 09/29/17 Disposition: DISCHARGE HOME Condition: Stable Calvin Malone MD Sep 29, 2017 01:57
[2017-09-29] MEDS ORDERED: SUCRALFATE 1 GM TAB PO ONE (02:30)
[2017-09-29] MEDS ORDERED: CARA1TAB6 PO (02:37)
== END 2017-09-29 03:15 | disposition home or self-care (01) ==
LOC: NEPC 22:36
DX: K29.50 Unspecified chronic gastritis without bleeding (principal); D64.9 Anemia, unspecified; F17.210 Nicotine dependence, cigarettes, uncomplicated
CPT/HCPCS: 80053; 81001; 83690; 84702; 85025; 96374; 99284; J1200; J1630; J2060; J2405

== ENCOUNTER 2017-10-17 21:20 | Emergency (ER) | payer MEDICAID ==
[2017-10-17] MEDS ORDERED: SODIUM CHLORIDE 0.9% FLUSH 10 ML FLUSH IVF (21:30)
[2017-10-17 21:42] LABS: AUTOMATED NEUTROPHIL # 3.3 TH/MM3 (1.8-7.7); BASOPHIL # 0.1 TH/MM3 (0-0.2); BASOPHIL % 1.1 % (0.0-2.0); EOSINOPHIL # 0.1 TH/MM3 (0-0.4); EOSINOPHIL % 1.4 % (0.0-4.0); HEMATOCRIT 27.6 % (35.0-46.0); HEMOGLOBIN 8.7 GM/DL (11.6-15.3); LYMPH % 46.8 % (9.0-44.0); LYMPHOCYTE # 3.8 TH/MM3 (1.0-4.8); MEAN CELL VOLUME 69.6 FL (80.0-100.0); MEAN CORPUSCULAR HEMOGLOBIN 21.9 PG (27.0-34.0); MEAN CORPUSCULAR HGB CONC 31.5 % (32.0-36.0); MEAN PLATELET VOLUME 8.6 FL (7.0-11.0); MONO % 9.4 % (0.0-8.0); MONOCYTE # 0.8 TH/MM3 (0-0.9); NEUT % 41.3 % (16.0-70.0); PLATELET COUNT 369 TH/MM3 (150-450); RED BLOOD COUNT 3.96 MIL/MM3 (4.00-5.30); RED CELL DISTRIBUTION WIDTH 26.6 % (11.6-17.2); WHITE BLOOD COUNT 8.1 TH/MM3 (4.0-11.0)
[2017-10-17] MEDS: SODIUM CHLORID 0.9% 500 ML INJ 500 ML IV (21:42)
[2017-10-17] MEDS: KETOROLAC TROMETHAMINE 30 MG/ML (IVP) VIAL IV PUSH (21:42)
[2017-10-17 21:43] LABS: HEMO FLAGS AUTO DIFF
[2017-10-17 21:59] LABS: APTT (PATIENT) 22.2 SEC (24.3-30.1); INTERNATIONAL NORMALIZED RATIO 0.9 RATIO; PROTHROMBIN TIME - PATIENT 9.5 SEC (9.8-11.6)
[2017-10-17 22:07] LABS: D-DIMER 1.49 MG/L FEU (0.00-0.50)
[2017-10-17 22:13] LABS: PLATELET ESTIMATE SMEAR NORMAL (NORMAL); PLATELET MORPHOLOGY NORMAL (NORMAL); SCAN/DIFF AUTO DIFF CONFIRMED; TARGET CELLS 1+ (NORMAL); TEARDROP RBCS 1+ (NORMAL)
[2017-10-17 22:13] LABS: B-TYPE NATRIURETIC PEPTIDE 38 PG/ML (0-100)
[2017-10-17 22:19] LABS: ALBUMIN 2.5 GM/DL (3.4-5.0); ALKALINE PHOSPHATASE 64 U/L (45-117); ALT (GPT) 28 U/L (10-53); ANION GAP 8 MEQ/L (5-15); AST (GOT) 25 U/L (15-37); BICARBONATE 21.3 MEQ/L (21.0-32.0); BLOOD UREA NITROGEN 7 MG/DL (7-18); CHLORIDE 114 MEQ/L (98-107); CREATINE KINASE 122 U/L (26-192); CREATININE 0.43 MG/DL (0.50-1.00); GLOMERULAR FILTRATION RATE 200 ML/MIN (>89); GLUCOSE,RANDOM 70 MG/DL (74-106); POTASSIUM 3.4 MEQ/L (3.5-5.1); SODIUM (NA) 143 MEQ/L (136-145); TOTAL BILIRUBIN ADULT 0.2 MG/DL (0.2-1.0); TOTAL PROTEIN 6.4 GM/DL (6.4-8.2); TROPONIN I LESS THAN 0.02 NG/ML (0.02-0.05)
[2017-10-17 22:26] LABS: CALCIUM-PROTEIN CORRECTED 7.4 MG/DL (8.5-10.1)
[2017-10-17] MEDS: CALCIUM GLUCONATE INJ 2 GM in SODIUM CHLORIDE 0.9% INJ 100 ML IV (22:42)
[2017-10-17] MEDS: MORPHINE SULFATE 2 MG/ML INJ IV PUSH (22:42)
[2017-10-17 22:45] LABS: CKMB LESS THAN 0.5 NG/ML (0.5-3.6)
[2017-10-17] MEDS: IOHEXOL 350 MG/ML 10 ML VIAL (for RAD DIAG) IVCONTRAST (23:20)
[2017-10-17] MEDS: LEVOFLOXACIN 750 MG TAB PO (23:26)
== END 2017-10-18 01:22 | disposition home or self-care (01) ==
LOC: NEPE 10-18 01:22
DX: J18.9 Pneumonia, unspecified organism (principal); E83.51 Hypocalcemia; R00.0 Tachycardia, unspecified; R94.31 Abnormal electrocardiogram [ECG] [EKG]; R56.9 Unspecified convulsions; J45.909 Unspecified asthma, uncomplicated; I10 Essential (primary) hypertension; F31.9 Bipolar disorder, unspecified; D57.3 Sickle-cell trait
CPT/HCPCS: 71045; 71275; 80053; 82550; 82552; 83880; 84484; 85025; 85379; 85610; 85730; 93005; 96361; 96365; 96375; 99285-25

== ENCOUNTER 2018-01-03 18:52 | Emergency (ER) | payer MEDICAID ==
[~2018-01-03] VITALS: Ht 154.9 cm; Wt 79.1 kg
[~2018-01-03 18:52] MED LIST changes: +CALTCHW5 PO; +CIPR-9 PO; +DIFL150T PO; +GUAISYP4 PO; +KETO10 PO; -NU-IRON PO; -PROM12.54 PO; -SERT-129 PO; -TOPI100 PO; -ZOFR4TAB PO
[2018-01-03 19:06] VITALS: BP 100/73; PULSE 107; RESP 18; TEMP 99.4; O2SAT 99
[2018-01-03] MEDS ORDERED: IBUPROFEN 600 MG TAB PO ONE (19:45)
--- NOTE | 2018-01-03 19:51 | PD ---
HPI Chief Complaint: Fall Time Seen by Provider: 19:28 Travel History International Travel<30 days: No Contact w/Intl Traveler<30days: No Traveled to known affect area: No History of Present Illness HPI 37-year-old -[place] female presents emergency department status post trip and fall yesterday. Patient states she dropped her phone while walking on the street, and when she went to pick it up she fell forward landing on her left knee and on her left face. Patient now has abrasions and pain to the left maxillary cheek, left upper middle lip, and central forehead. Patient denies headache however. Patient denies significant neck pain. She denies syncope or loss of consciousness. She has no dental injury. The abrasions are superficial. Her main area of pain is in the left maxillary cheek and zygomatic region. Also complaining of left knee pain with ambulation. Last tetanus shot was 3 years ago. Patient takes chronic pain medication for degenerative disc disease. Pain is 7 out of 10. Bleeding is currently controlled. She has no known drug allergies. PFSH Past Medical History Hx Anticoagulant Therapy: No Anxiety: Yes Depression: Yes Cancer: No Cardiovascular Problems: No High Cholesterol: No Chemotherapy: No Chest Pain: Yes (CHRONIC FOR 3 YEARS) Cerebrovascular Accident: No Diabetes: No Diminished Hearing: No Endocrine: No Genitourinary: Yes Headaches: Yes Hypertension: Yes Immune Disorder: No Musculoskeletal: Yes Neurologic: Yes Psychiatric: Yes Reproductive: No Respiratory: Yes (HX OF PNEUMOTHORACES) Integumentary: Yes Immunizations Current: Yes Migraines: Yes Seizures: Yes (ONCE, NOT ON MEDS) Sickle Cell Disease: Yes (TRAIT) ?: Not : 9 Para: 9 Miscarriage: 0 : 0 Ovarian Cysts: Yes Tubal Ligation: Yes Past Surgical History Cardiac Surgery: Yes (CHEST TUBE 2006) Section: Yes (02/13/2010 X 1) Gynecologic Surgery: Yes () Thoracic Surgery: Yes (PNEUMOTHORAX) Other Surgery: Yes (right chest tube in aug 03 FOR SPONT. PNEUMOTHORAX) Social History Alcohol Use: No Tobacco Use: Yes (2 CIGS/DAY) Substance Use: No Allergies-Medications (Allergen,Severity, Reaction): Coded Allergies: No Known Allergies (Verified Adverse Reaction, Unknown, 01/03/18) Reported Meds & Prescriptions Reported Meds & Active Scripts Active Carafate (Sucralfate) 1 Gram Tab 1 Gm PO QID On empty stomach Percocet (Oxycodone-Acetaminophen) 10-325 mg Tab 1 Tab PO Q6H PRN DO NOT USE THIS MEDICINE IF YOU WILL DRIVE A CAR OR USE A MACHINE ONLY USE IT WHEN RESTING AT HOME. Clonidine (Clonidine HCl) 0.1 Mg Tab 0.1 Mg PO DAILY PRN Ambien (Zolpidem Tartrate) 10 Mg Tab 5 Mg PO HS PRN Review of Systems Except as stated in HPI: all other systems reviewed are Neg General / Constitutional: No: Fever Eyes: No: Visual changes HENT: No: Headaches Cardiovascular: No: Chest Pain or Discomfort Respiratory: No: Shortness of Breath Gastrointestinal: No: Abdominal Pain Genitourinary: No: Dysuria Musculoskeletal: No: Pain Skin: Positive Lesions (Multiple abrasions to the left face. See history of present illness per), No Rash Neurologic: No: Weakness Psychiatric: No: Depression Endocrine: No: Polydipsia Hematologic/Lymphatic: No: Easy Bruising Physical Exam Narrative GENERAL: Patient appears in mild to moderate distress per SKIN: Warm and dry. Normal color. Normal turgor. Patient has abrasion to the left upper middle lip with swelling to the upper left lip. Patient also has abrasion to the left maxillary and zygomatic regions. Patient has abrasion to the central forehead. There are no suturable lesions. Bleeding is currently controlled. Patient has abrasion to the left anterior knee as well. This is minor. HEAD: Patient complains of pain and swelling to the left maxillary cheek, and upper left lip. She is not complaining of the forehead being painful. EYES: Pupils equal and round. No scleral icterus. No injection or drainage. Ocular motions are full and equal bilaterally per ENT: No nasal bleeding or discharge. Mucous membranes pink and moist. No dental injury. No buccal membrane injury. No tongue injury. Pharynx is clear. Airway is patent. TMs are clear bilaterally. NECK: Trachea midline. No bony tenderness or step-off. Range of motion is full and nontender per CARDIOVASCULAR: Regular rate and rhythm. RESPIRATORY: No accessory muscle use. Clear to auscultation. Breath sounds equal bilaterally. MUSCULOSKELETAL: Extremities without clubbing, cyanosis, or edema. No obvious deformities. Patient complains of pain in the left knee with ambulation and palpation. There is no significant effusion or laxity appreciated. Exam is somewhat limited secondary to patient's discomfort NEUROLOGICAL: Awake and alert. No obvious cranial nerve deficits. Motor grossly within normal limits. Five out of 5 muscle strength in the arms and legs. Normal speech. PSYCHIATRIC: Appropriate mood and affect; insight and judgment normal. Data Data Last Documented VS Vital Signs Date Time Temp Pulse Resp B/P (MAP) Pulse Ox O2 Delivery O2 Flow Rate FiO2 01/03/18 19:06 99.4 107 18 100/73 (82) [address] Facial Bones W/O Iv Cont (01/03/18 19:40) Splint Or Brace Apply/Monitor (01/03/18 19:40) Ibuprofen (Motrin) (01/03/18 19:45) Immobilizer Knee 20 Inch (01/03/18 ) MDM Medical Decision Making Medical Screen Exam Complete: Yes Emergency Medical Condition: Yes Differential Diagnosis Trip and fall. Facial contusion. Facial abrasion. Possible fracture. Left knee abrasion. Left knee contusion Narrative Course Patient is medically stable at time of exam. Tetanus is up-to-date. CT of the facial bones is ordered. Patient is given 600 mg ibuprofen p.o. now. Knee immobilizer placed on the left leg. CT of the face shows no fracture or foreign bodies. Patient is given prescription for ibuprofen 600 mg 4 times daily #40 Patient also given Bactroban for the abrasions to be applied twice daily for the next week as needed. Patient to follow-up if symptoms worsen as needed. Diagnosis Primary Impression: Abrasion of face and extremities Qualified Codes: S00.81XA - Abrasion of other part of head, initial encounter ; S40.812A - Abrasion of left upper arm, initial encounter; S80.812A - Abrasion , left lower leg, initial encounter Additional Impressions: Contusion of face Qualified Codes: S00.83XA - Contusion of other part of head, initial encounter Contusion, knee Qualified Codes: S80.02XA - Contusion of left knee, initial encounter Referrals: [facility] Patient Instructions: Abrasion (ED), [place] (ED), Contusion in Adults (ED), General Instructions Additional Instructions: Tetanus is up-to-date. CT of the facial bones is ordered. Patient is given 600 mg ibuprofen p.o. now. Knee immobilizer placed on the left leg. CT of the face shows no fracture or foreign bodies. Patient is given prescription for ibuprofen 600 mg 4 times daily #40 Patient also given Bactroban for the abrasions to be applied twice daily for the next week as needed. Patient to follow-up if symptoms worsen as needed. Med/Other Pt SpecificInfo: Prescription(s) given Scripts Mupirocin Topical (Bactroban Topical) 22 Gm Cream 1 APPLIC TOPICAL BID for Mgmt Bacterial Infection, #1 TUBE 0 Refills Prov: Ely Moreno MD 01/03/18 Ibuprofen (Ibuprofen) 600 Mg Tab 600 MG PO Q6H Y for Pain/Inflammation, #40 TAB 0 Refills Prov: Ely Moreno MD 01/03/18 Disposition: 01 DISCHARGE HOME Condition: Stable Magdi Parish Jan 03, 2018 19:51
[2018-01-03] MEDS ORDERED: IBUP-232 PO (20:26)
[2018-01-03] MEDS ORDERED: MUPI2%T TOPICAL (20:26)
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
== END 2018-01-03 20:49 | disposition home or self-care (01) ==
LOC: NEPK 18:52
DX: S00.81XA Abrasion of other part of head, initial encounter (principal); S80.812A Abrasion, left lower leg, initial encounter; S80.02XA Contusion of left knee, initial encounter; F17.210 Nicotine dependence, cigarettes, uncomplicated; W01.0XXA Fall on same level from slipping, tripping and stumbling without subsequent striking against object, initial encounter; Y93.01 Activity, walking, marching and hiking; Y92.410 Unspecified street and highway as the place of occurrence of the external cause
CPT/HCPCS: 70486; 99283; L1830

== ENCOUNTER 2018-06-02 14:33 | Observation (INO) ==
[2018-06-02] MEDS ORDERED: Pantoprazole Inj 40 MG Vial IV.PUSH ONE (14:47)
[2018-06-02] MEDS ORDERED: Aluminum/Magnesium/Simethacone Susp 30 ML UDC PO ONE (14:47)
[2018-06-02] MEDS ORDERED: Sod Chloride 0.9% Inj 1,000 ML IV.SIG ONE (14:47)
--- NOTE | 2018-06-02 14:55 | ED ---
HPI General Chief complaint: Abdominal Pain Stated complaint: Vomiting Time Seen by Provider: 06/02/18 14:45 History of Present Illness HPI narrative: This is a 38-year-old female with history of gastritis on previous endoscopy in the summer 2016. She also reports chronic pain for which she takes Percocet. She presents via EMS for evaluation of nausea, vomiting, abdominal pain. Symptoms started this morning. She describes it as a sharp pain in her epigastrium and left upper quadrant is constant but worse when vomiting. She reports multiple episodes of emesis this morning, somewhat blood- tinged as well. She denies diarrhea, flank pain, dysuria, chest pain, shortness of breath. She is currently actively vomiting. Symptoms are moderate with no obvious aggravating or relieving factors. She reports that she is currently on her menstrual period and thus cannot be . No other complaints. Related Data Home Medications Medication Instructions Recorded Confirmed clonazepam [Klonopin] 0.5 mg PO TID 06/02/18 06/02/18 oxycodone-acetaminophen 1 tab PO QID 06/02/18 06/02/18 Previous Rx's Medication Instructions Recorded pantoprazole 40 mg PO BID 30 Days #60 tab 06/04/18 Allergies Allergy/AdvReac Type Severity Reaction Status Date / Time No Known Allergies AdvReac Unknown NONE Uncoded 06/02/18 15:10 Review of Systems ROS: all other systems reviewed are negative [facility] History Medical History Gastritis (Acute) History of pneumothorax (Acute) Surgical History Surgical History H/O chest tube placement (Acute) History of section (Acute) History of tubal ligation (Acute) Family History Family History Other Family history of diabetes mellitus Family history of heart failure Family history of renal failure Social History Social History Substance History: No History of Abuse Second Hand Smoke Exposure: No Smoking Status: Current every day smoker Tobacco Type: Cigarettes How Often Do You Have a Drink Containing Alcohol: Never Recent Travel in [facility] within the Last 8 Weeks: No Recent Out of Country Travel within the Last 8 Weeks: No Exam Narrative Exam Narrative: GENERAL: This is a well-developed well-nourished female who appears uncomfortable, she is currently vomiting. There is orange colored emesis in her emesis bag. SKIN: Warm and dry. HEAD: Atraumatic. Normocephalic. EYES: Pupils equal and round. No scleral icterus. No injection or drainage. ENT: No nasal bleeding or discharge. Mucous membranes pink and moist. NECK: Trachea midline. No JVD. CARDIOVASCULAR: Regular rate and rhythm. No murmur appreciated. RESPIRATORY: No accessory muscle use. Clear to auscultation. Breath sounds equal bilaterally. GASTROINTESTINAL: Abdomen soft, tender to palpation in the epigastrium and left upper quadrant. MUSCULOSKELETAL: No obvious deformities. No clubbing. No cyanosis. No edema. NEUROLOGICAL: Awake and alert. No obvious cranial nerve deficits. Motor grossly within normal limits. Normal speech. Course Initial Documented Vital Signs Temperature 99.4 F 06/02/18 15:00 Pulse Rate 85 06/02/18 15:00 Respiratory Rate 22 06/02/18 15:00 Blood Pressure 168/80 H 06/02/18 15:00 Pulse Oximetry 99 06/02/18 15:00 Last Documented Vital Signs Temperature 99.1 F 06/04/18 12:00 Pulse Rate 61 06/04/18 12:00 Respiratory Rate 18 06/04/18 12:00 Blood Pressure 161/82 H 06/04/18 12:00 Pulse Oximetry 97 06/04/18 12:00 Medical Decision Making JO-ANN Attestation JO-ANN supervised visit: Yes Attestation: Patient seen and examined by me (Dr. Hood) in additions to Alexei Smyth. Patient with similar symptoms in past, is being medicated. Workup negative. Abdomen benign. Agree with MDM documented by Mr. Beller. [facility] Narrative Medical decision making narrative: Lab work, urinalysis, CT of the pelvis have been ordered. The patient will be given Protonix, IV fluids, Zofran, GI cocktail. His lab work is been reviewed. Hemoglobin is improved to 11.3. Lab work is otherwise unremarkable. Urinalysis reveals moderate blood, likely contamination from menstrual period. Urine is negative. The patient had persistent, Ativan was administered. Morphine was administered for pain. The patient had persistent Nausea and vomiting despite Zofran administration. She had reglan with persistent nausea and vomiting therefore Phenergan was administered. CT imaging reveals no acute process. The patient has continued nausea, vomiting and abdominal pain. Therefore additional medications ordered including Ativan, Benadryl, analgesics. Ultimately the patient will be admitted for intractable nausea and vomiting, gastritis. Medical Screen Exam Complete: Yes Emergency Medical Condition: Yes Differential Diagnosis Differential Diagnosis: Gastritis, perforation, peptic ulcer disease, pancreatitis, Yovana-Shea tear Lab Data Result diagrams: 06/04/18 09:28 06/03/18 06:44 POC Results POC Urine Results Negative Lab Results 06/02/18 06/02/18 06/02/18 Range/Units 14:55 14:55 15:05 WBC 9.8 (4.0-11.0) th/mm3 RBC 4.88 (4.00-5.30) mil/mm3 Hgb 11.3 L (11.6-15.3) gm/dL Hct 35.1 (35.0-46.0) % MCV 72.1 L (80.0-100.0) fL MCH 23.2 L (27.0-34.0) pg MCHC 32.2 (32.0-36.0) % RDW 21.0 H (11.6-17.2) % Plt Count 421 (150-450) th/mm3 MPV 8.4 (7.0-11.0) fL Neut % (Auto) 78.9 H (16.0-70.0) % Lymph % (Auto) 17.6 (9.0-44.0) % [place] % (Auto) 2.6 (0.0-8.0) % Eos % (Auto) 0.1 (0.0-4.0) % Baso % (Auto) 0.8 (0.0-2.0) % Neut # (Auto) 7.7 (1.8-7.7) th/mm3 Lymph # (Auto) 1.7 (1.0-4.8) th/mm3 [place] # (Auto) 0.3 (0.0-0.9) th/mm3 Eos # (Auto) 0.0 (0.0-0.4) th/mm3 Baso # (Auto) 0.1 (0.0-0.2) th/mm3 WBC Differential . Differential Comment Auto diff final PT 10.1 (9.8-11.6) sec INR 1.0 Ratio APTT 31.1 H (24.3-30.1) sec Sodium 139 (136-145) meq/L Potassium 3.9 (3.5-5.1) meq/L Chloride 104 (98-107) meq/L Carbon Dioxide 24.1 (21.0-32.0) meq/L Anion Gap 11 (5-15) meq/L BUN 7 (7-18) mg/dL Creatinine 0.64 (0.50-1.00) mg/dL Estimated GFR Greater than 89 (>89) mL/min POC Glucose (68-110) mg/dl Random Glucose 107 H (74-106) mg/dL Calcium 9.2 (8.5-10.1) mg/dL Total Bilirubin 0.3 (0.2-1.0) mg/dL AST 27 (15-37) U/L ALT 39 (10-53) U/L Alkaline Phosphatase 72 (45-117) U/L Total Protein 9.2 H (6.4-8.2) g/dL Albumin 4.1 (3.4-5.0) g/dL Lipase 96 (73-393) U/L Urine Color (Yellw/Straw) Urine Clarity (Clear) Urine pH (5.0-8.5) Ur Specific [place] (1.002-1.035) Urine Protein (Neg-Trace) mg/dL Urine Glucose (UA) (Negative) mg/dL Urine Ketones (Negative) mg/dL Urine Occult Blood (Negative) Urine Nitrate (Negative) Urine Bilirubin (Negative) Urine Urobilinogen (Less than 2) mg/dL Ur Leukocyte Esterase (Negative) Urine RBC (0-3) /hpf Urine WBC (0-5) /hpf Ur Squamous Epith Cells (0-5) /hpf Urine Mucus (Occasional) /lpf Micro UA Comment Ur Microscopic Review Urine Culture Comments Blood Type Antibody Screen Ab Screen Tube Method Prewarmed Antibody Srcn Antibody Identification Rout Panel Path Interp Antigen Identification Direct Antiglob Test Crossmatch Bld Prod Order Comment 06/02/18 06/02/18 06/02/18 Range/Units 16:05 23:15 23:45 WBC (4.0-11.0) th/mm3 RBC (4.00-5.30) mil/mm3 Hgb 10.5 L (11.6-15.3) gm/dL Hct 33.4 L (35.0-46.0) % MCV (80.0-100.0) fL MCH (27.0-34.0) pg MCHC (32.0-36.0) % RDW (11.6-17.2) % Plt Count (150-450) th/mm3 MPV (7.0-11.0) fL Neut % (Auto) (16.0-70.0) % Lymph % (Auto) (9.0-44.0) % [place] % (Auto) (0.0-8.0) % Eos % (Auto) (0.0-4.0) % Baso % (Auto) (0.0-2.0) % Neut # (Auto) (1.8-7.7) th/mm3 Lymph # (Auto) (1.0-4.8) th/mm3 [place] # (Auto) (0.0-0.9) th/mm3 Eos # (Auto) (0.0-0.4) th/mm3 Baso # (Auto) (0.0-0.2) th/mm3 WBC Differential Differential Comment PT (9.8-11.6) sec INR Ratio APTT (24.3-30.1) sec Sodium (136-145) meq/L Potassium (3.5-5.1) meq/L Chloride (98-107) meq/L Carbon Dioxide (21.0-32.0) meq/L Anion Gap (5-15) meq/L BUN (7-18) mg/dL Creatinine (0.50-1.00) mg/dL Estimated GFR (>89) mL/min POC Glucose (68-110) mg/dl Random Glucose (74-106) mg/dL Calcium (8.5-10.1) mg/dL Total Bilirubin (0.2-1.0) mg/dL AST (15-37) U/L ALT (10-53) U/L Alkaline Phosphatase (45-117) U/L Total Protein (6.4-8.2) g/dL Albumin (3.4-5.0) g/dL Lipase (73-393) U/L Urine Color Yellow (Yellw/Straw) Urine Clarity Clear (Clear) Urine pH 5.0 (5.0-8.5) Ur Specific [place] 1.013 (1.002-1.035) Urine Protein 500 or greater (Neg-Trace) mg/dL Urine Glucose (UA) Negative (Negative) mg/dL Urine Ketones Negative (Negative) mg/dL Urine Occult Blood Moderate H (Negative) Urine Nitrate Negative (Negative) Urine Bilirubin Negative (Negative) Urine Urobilinogen Less than 2 (Less than 2) mg/dL Ur Leukocyte Esterase Negative (Negative) Urine RBC Less than 1 (0-3) /hpf Urine WBC 1 (0-5) /hpf Ur Squamous Epith Cells 2 (0-5) /hpf Urine Mucus Few H (Occasional) /lpf Micro UA Comment Culture not ind Ur Microscopic Review Not Reportable Urine Culture Comments Culture not ind Blood Type O Positive Antibody Screen Positive H Ab Screen Tube Method Positive H Prewarmed Antibody Srcn Cancelled Antibody Identification Rout Panel Path Interp Antigen Identification Direct Antiglob Test Cancelled Crossmatch Bld Prod Order Comment 06/03/18 06/03/18 06/03/18 Range/Units 01:41 03:24 03:24 WBC 9.5 (4.0-11.0) th/mm3 RBC 4.69 (4.00-5.30) mil/mm3 Hgb 10.8 L (11.6-15.3) gm/dL Hct 33.0 L (35.0-46.0) % MCV 70.3 L (80.0-100.0) fL MCH 22.9 L (27.0-34.0) pg MCHC 32.6 (32.0-36.0) % RDW 21.1 H (11.6-17.2) % Plt Count 399 (150-450) th/mm3 MPV 7.7 (7.0-11.0) fL Neut % (Auto) 79.0 H (16.0-70.0) % Lymph % (Auto) 16.3 (9.0-44.0) % [place] % (Auto) 3.3 (0.0-8.0) % Eos % (Auto) 0.1 (0.0-4.0) % Baso % (Auto) 1.3 (0.0-2.0) % Neut # (Auto) 7.5 (1.8-7.7) th/mm3 Lymph # (Auto) 1.5 (1.0-4.8) th/mm3 [place] # (Auto) 0.3 (0.0-0.9) th/mm3 Eos # (Auto) 0.0 (0.0-0.4) th/mm3 Baso # (Auto) 0.1 (0.0-0.2) th/mm3 WBC Differential . Differential Comment Auto diff final PT (9.8-11.6) sec INR Ratio APTT (24.3-30.1) sec Sodium 141 (136-145) meq/L Potassium 3.8 (3.5-5.1) meq/L Chloride 105 (98-107) meq/L Carbon Dioxide 24.2 (21.0-32.0) meq/L Anion Gap 12 (5-15) meq/L BUN 7 (7-18) mg/dL Creatinine 0.61 (0.50-1.00) mg/dL Estimated GFR Greater than 89 (>89) mL/min POC Glucose 131 H (68-110) mg/dl Random Glucose 129 H (74-106) mg/dL Calcium 9.0 (8.5-10.1) mg/dL Total Bilirubin (0.2-1.0) mg/dL AST (15-37) U/L ALT (10-53) U/L Alkaline Phosphatase (45-117) U/L Total Protein (6.4-8.2) g/dL Albumin (3.4-5.0) g/dL Lipase (73-393) U/L Urine Color (Yellw/Straw) Urine Clarity (Clear) Urine pH (5.0-8.5) Ur Specific [place] (1.002-1.035) Urine Protein (Neg-Trace) mg/dL Urine Glucose (UA) (Negative) mg/dL Urine Ketones (Negative) mg/dL Urine Occult Blood (Negative) Urine Nitrate (Negative) Urine Bilirubin (Negative) Urine Urobilinogen (Less than 2) mg/dL Ur Leukocyte Esterase (Negative) Urine RBC (0-3) /hpf Urine WBC (0-5) /hpf Ur Squamous Epith Cells (0-5) /hpf Urine Mucus (Occasional) /lpf Micro UA Comment Ur Microscopic Review Urine Culture Comments Blood Type Antibody Screen Ab Screen Tube Method Prewarmed Antibody Srcn Antibody Identification Rout Panel Path Interp Antigen Identification Direct Antiglob Test Crossmatch Bld Prod Order Comment 06/03/18 06/03/18 06/03/18 Range/Units 03:25 03:25 06:41 WBC 8.4 (4.0-11.0) th/mm3 RBC 4.71 (4.00-5.30) mil/mm3 Hgb 10.9 L (11.6-15.3) gm/dL Hct 33.7 L (35.0-46.0) % MCV 71.4 L (80.0-100.0) fL MCH 23.1 L (27.0-34.0) pg MCHC 32.4 (32.0-36.0) % RDW 20.8 H (11.6-17.2) % Plt Count 386 (150-450) th/mm3 MPV 7.9 (7.0-11.0) fL Neut % (Auto) 75.6 H (16.0-70.0) % Lymph % (Auto) 19.1 (9.0-44.0) % [place] % (Auto) 4.2 (0.0-8.0) % Eos % (Auto) 0.0 (0.0-4.0) % Baso % (Auto) 1.1 (0.0-2.0) % Neut # (Auto) 6.4 (1.8-7.7) th/mm3 Lymph # (Auto) 1.6 (1.0-4.8) th/mm3 [place] # (Auto) 0.4 (0.0-0.9) th/mm3 Eos # (Auto) 0.0 (0.0-0.4) th/mm3 Baso # (Auto) 0.1 (0.0-0.2) th/mm3 WBC Differential . Differential Comment Auto diff final PT (9.8-11.6) sec INR Ratio APTT (24.3-30.1) sec Sodium (136-145) meq/L Potassium (3.5-5.1) meq/L Chloride (98-107) meq/L Carbon Dioxide (21.0-32.0) meq/L Anion Gap (5-15) meq/L BUN (7-18) mg/dL Creatinine (0.50-1.00) mg/dL Estimated GFR (>89) mL/min POC Glucose (68-110) mg/dl Random Glucose (74-106) mg/dL Calcium (8.5-10.1) mg/dL Total Bilirubin (0.2-1.0) mg/dL AST (15-37) U/L ALT (10-53) U/L Alkaline Phosphatase (45-117) U/L Total Protein (6.4-8.2) g/dL Albumin (3.4-5.0) g/dL Lipase (73-393) U/L Urine Color (Yellw/Straw) Urine Clarity (Clear) Urine pH (5.0-8.5) Ur Specific [place] (1.002-1.035) Urine Protein (Neg-Trace) mg/dL Urine Glucose (UA) (Negative) mg/dL Urine Ketones (Negative) mg/dL Urine Occult Blood (Negative) Urine Nitrate (Negative) Urine Bilirubin (Negative) Urine Urobilinogen (Less than 2) mg/dL Ur Leukocyte Esterase (Negative) Urine RBC (0-3) /hpf Urine WBC (0-5) /hpf Ur Squamous Epith Cells (0-5) /hpf Urine Mucus (Occasional) /lpf Micro UA Comment Ur Microscopic Review Urine Culture Comments Blood Type Antibody Screen Ab Screen Tube Method Prewarmed Antibody Srcn Antibody Identification Non-Specific Agglutinin Rout Panel Path Interp Antigen Identification Leb Antigen - NEGATIVE Direct Antiglob Test Crossmatch See Detail Bld Prod Order Comment 06/03/18 06/03/18 06/03/18 Range/Units 06:44 09:59 11:31 WBC (4.0-11.0) th/mm3 RBC (4.00-5.30) mil/mm3 Hgb 11.7 (11.6-15.3) gm/dL Hct 36.3 (35.0-46.0) % MCV (80.0-100.0) fL MCH (27.0-34.0) pg MCHC (32.0-36.0) % RDW (11.6-17.2) % Plt Count (150-450) th/mm3 MPV (7.0-11.0) fL Neut % (Auto) (16.0-70.0) % Lymph % (Auto) (9.0-44.0) % [place] % (Auto) (0.0-8.0) % Eos % (Auto) (0.0-4.0) % Baso % (Auto) (0.0-2.0) % Neut # (Auto) (1.8-7.7) th/mm3 Lymph # (Auto) (1.0-4.8) th/mm3 [place] # (Auto) (0.0-0.9) th/mm3 Eos # (Auto) (0.0-0.4) th/mm3 Baso # (Auto) (0.0-0.2) th/mm3 WBC Differential Differential Comment PT (9.8-11.6) sec INR Ratio APTT (24.3-30.1) sec Sodium 141 (136-145) meq/L Potassium 3.5 (3.5-5.1) meq/L Chloride 104 (98-107) meq/L Carbon Dioxide 24.1 (21.0-32.0) meq/L Anion Gap 13 (5-15) meq/L BUN 6 L (7-18) mg/dL Creatinine 0.62 (0.50-1.00) mg/dL Estimated GFR Greater than 89 (>89) mL/min POC Glucose 150 H (68-110) mg/dl Random Glucose 143 H (74-106) mg/dL Calcium 9.0 (8.5-10.1) mg/dL Total Bilirubin 0.6 (0.2-1.0) mg/dL AST 21 (15-37) U/L ALT 33 (10-53) U/L Alkaline Phosphatase 70 (45-117) U/L Total Protein 9.4 H (6.4-8.2) g/dL Albumin 4.1 (3.4-5.0) g/dL Lipase 113 (73-393) U/L Urine Color (Yellw/Straw) Urine Clarity (Clear) Urine pH (5.0-8.5) Ur Specific [place] (1.002-1.035) Urine Protein (Neg-Trace) mg/dL Urine Glucose (UA) (Negative) mg/dL Urine Ketones (Negative) mg/dL Urine Occult Blood (Negative) Urine Nitrate (Negative) Urine Bilirubin (Negative) Urine Urobilinogen (Less than 2) mg/dL Ur Leukocyte Esterase (Negative) Urine RBC (0-3) /hpf Urine WBC (0-5) /hpf Ur Squamous Epith Cells (0-5) /hpf Urine Mucus (Occasional) /lpf Micro UA Comment Ur Microscopic Review Urine Culture Comments Blood Type Antibody Screen Ab Screen Tube Method Prewarmed Antibody Srcn Antibody Identification Rout Panel Path Interp Antigen Identification Direct Antiglob Test Crossmatch Bld Prod Order Comment 06/03/18 06/03/18 06/04/18 Range/Units 17:27 20:46 01:52 WBC (4.0-11.0) th/mm3 RBC (4.00-5.30) mil/mm3 Hgb (11.6-15.3) gm/dL Hct (35.0-46.0) % MCV (80.0-100.0) fL MCH (27.0-34.0) pg MCHC (32.0-36.0) % RDW (11.6-17.2) % Plt Count (150-450) th/mm3 MPV (7.0-11.0) fL Neut % (Auto) (16.0-70.0) % Lymph % (Auto) (9.0-44.0) % [place] % (Auto) (0.0-8.0) % Eos % (Auto) (0.0-4.0) % Baso % (Auto) (0.0-2.0) % Neut # (Auto) (1.8-7.7) th/mm3 Lymph # (Auto) (1.0-4.8) th/mm3 [place] # (Auto) (0.0-0.9) th/mm3 Eos # (Auto) (0.0-0.4) th/mm3 Baso # (Auto) (0.0-0.2) th/mm3 WBC Differential Differential Comment PT (9.8-11.6) sec INR Ratio APTT (24.3-30.1) sec Sodium (136-145) meq/L Potassium (3.5-5.1) meq/L Chloride (98-107) meq/L Carbon Dioxide (21.0-32.0) meq/L Anion Gap (5-15) meq/L BUN (7-18) mg/dL Creatinine (0.50-1.00) mg/dL Estimated GFR (>89) mL/min POC Glucose 202 H 139 H 131 H (68-110) mg/dl Random Glucose (74-106) mg/dL Calcium (8.5-10.1) mg/dL Total Bilirubin (0.2-1.0) mg/dL AST (15-37) U/L ALT (10-53) U/L Alkaline Phosphatase (45-117) U/L Total Protein (6.4-8.2) g/dL Albumin (3.4-5.0) g/dL Lipase (73-393) U/L Urine Color (Yellw/Straw) Urine Clarity (Clear) Urine pH (5.0-8.5) Ur Specific [place] (1.002-1.035) Urine Protein (Neg-Trace) mg/dL Urine Glucose (UA) (Negative) mg/dL Urine Ketones (Negative) mg/dL Urine Occult Blood (Negative) Urine Nitrate (Negative) Urine Bilirubin (Negative) Urine Urobilinogen (Less than 2) mg/dL Ur Leukocyte Esterase (Negative) Urine RBC (0-3) /hpf Urine WBC (0-5) /hpf Ur Squamous Epith Cells (0-5) /hpf Urine Mucus (Occasional) /lpf Micro UA Comment Ur Microscopic Review Urine Culture Comments Blood Type Antibody Screen Ab Screen Tube Method Prewarmed Antibody Srcn Antibody Identification Rout Panel Path Interp Antigen Identification Direct Antiglob Test Crossmatch Bld Prod Order Comment 06/04/18 06/04/18 06/04/18 Range/Units 06:54 09:24 09:28 WBC (4.0-11.0) th/mm3 RBC (4.00-5.30) mil/mm3 Hgb 10.8 L (11.6-15.3) gm/dL Hct 33.7 L (35.0-46.0) % MCV (80.0-100.0) fL MCH (27.0-34.0) pg MCHC (32.0-36.0) % RDW (11.6-17.2) % Plt Count (150-450) th/mm3 MPV (7.0-11.0) fL Neut % (Auto) (16.0-70.0) % Lymph % (Auto) (9.0-44.0) % [place] % (Auto) (0.0-8.0) % Eos % (Auto) (0.0-4.0) % Baso % (Auto) (0.0-2.0) % Neut # (Auto) (1.8-7.7) th/mm3 Lymph # (Auto) (1.0-4.8) th/mm3 [place] # (Auto) (0.0-0.9) th/mm3 Eos # (Auto) (0.0-0.4) th/mm3 Baso # (Auto) (0.0-0.2) th/mm3 WBC Differential Differential Comment PT (9.8-11.6) sec INR Ratio APTT (24.3-30.1) sec Sodium (136-145) meq/L Potassium (3.5-5.1) meq/L Chloride (98-107) meq/L Carbon Dioxide (21.0-32.0) meq/L Anion Gap (5-15) meq/L BUN (7-18) mg/dL Creatinine (0.50-1.00) mg/dL Estimated GFR (>89) mL/min POC Glucose 148 H 141 H (68-110) mg/dl Random Glucose (74-106) mg/dL Calcium (8.5-10.1) mg/dL Total Bilirubin (0.2-1.0) mg/dL AST (15-37) U/L ALT (10-53) U/L Alkaline Phosphatase (45-117) U/L Total Protein (6.4-8.2) g/dL Albumin (3.4-5.0) g/dL Lipase (73-393) U/L Urine Color (Yellw/Straw) Urine Clarity (Clear) Urine pH (5.0-8.5) Ur Specific [place] (1.002-1.035) Urine Protein (Neg-Trace) mg/dL Urine Glucose (UA) (Negative) mg/dL Urine Ketones (Negative) mg/dL Urine Occult Blood (Negative) Urine Nitrate (Negative) Urine Bilirubin (Negative) Urine Urobilinogen (Less than 2) mg/dL Ur Leukocyte Esterase (Negative) Urine RBC (0-3) /hpf Urine WBC (0-5) /hpf Ur Squamous Epith Cells (0-5) /hpf Urine Mucus (Occasional) /lpf Micro UA Comment Ur Microscopic Review Urine Culture Comments Blood Type Antibody Screen Ab Screen Tube Method Prewarmed Antibody Srcn Antibody Identification Rout Panel Path Interp Antigen Identification Direct Antiglob Test Crossmatch Bld Prod Order Comment Imaging Data Radiologist's impression: Abdomen/Pelvis CT 06/02/18 14:52 CONCLUSION: 1. Stable pleural/parenchymal process within the right posterior lung base. 2. Innumerable tiny low-density lesions are noted within the liver and these are stable compared to previous examination likely representing hepatic cysts. 3. Tiny umbilical hernia containing only fat. 4. Mild degenerative changes and scoliosis of the thoracolumbar spine. Discharge Plan Discharge Disposition Patient Disposition: 30 Still Patient Discharge Condition Condition: Stable Discharge Order Discharge Orders: Discharge Order (Routine); Ordered 06/04/18 Ordered By: Tiana Prasad Discharge Details Anticipated Discharge Date: 06/04/18 Discharge Comment: D/C when tolerating diet Diagnosis: Intractable vomiting with nausea, Gastritis Physicians Team ED Provider: Jam Hood ED Midlevel Provider: Alexei Smyth Primary Care Provider: Primary Care Yaw,Catalina Attending Provider: Faisal Valdivia Other Providers: Roselia Khan ; [facility],Insurance Status ED Status: Left Department Discharge Information Discharge Date/Time: 06/02/18 21:25
[2018-06-02 15:37] LABS: Baso # (Auto) 0.1 th/mm3 (0.0-0.2); Baso % (Auto) 0.8 % (0.0-2.0); Eos % (Auto) 0.1 % (0.0-4.0); Hematocrit 35.1 % (35.0-46.0); Hemoglobin 11.3 gm/dL (11.6-15.3); Lymph # (Auto) 1.7 th/mm3 (1.0-4.8); Lymph % (Auto) 17.6 % (9.0-44.0); Mean Corpuscular HGB Conc 32.2 % (32.0-36.0); Mean Corpuscular Hemoglobin 23.2 pg (27.0-34.0); Mean Corpuscular Volume 72.1 fL (80.0-100.0); Mean Platelet Volume 8.4 fL (7.0-11.0); Mono # (Auto) 0.3 th/mm3 (0.0-0.9); Mono % (Auto) 2.6 % (0.0-8.0); Neut # (Auto) 7.7 th/mm3 (1.8-7.7); Neut % (Auto) 78.9 % (16.0-70.0); Platelet Count 421 th/mm3 (150-450); Red Blood Count 4.88 mil/mm3 (4.00-5.30); White Blood Count 9.8 th/mm3 (4.0-11.0)
[2018-06-02 15:39] LABS: Activated Partial Thrombo Time 31.1 sec (24.3-30.1); Prothrombin Time 10.1 sec (9.8-11.6)
[2018-06-02] MEDS ORDERED: Morphine Inj 4 MG/ML Vial IV.PUSH ONE ×3 (15:44→22:50)
[2018-06-02 15:56] LABS: Albumin 4.1 g/dL (3.4-5.0); Anion Gap 11 meq/L (5-15); Aspartate Aminotransferase 27 U/L (15-37); Blood Urea Nitrogen 7 mg/dL (7-18); Calcium 9.2 mg/dL (8.5-10.1); Carbon Dioxide 24.1 meq/L (21.0-32.0); Chloride 104 meq/L (98-107); Glomerular Filtration Rate Greater Than 89 mL/min (>89); Glucose,Random 107 mg/dL (74-106); Lipase 96 U/L (73-393); Potassium 3.9 meq/L (3.5-5.1); Sodium 139 meq/L (136-145)
[2018-06-02 16:00] LABS: Alanine Aminotransferase 39 U/L (10-53); Alkaline Phosphatase 72 U/L (45-117); Total Protein 9.2 g/dL (6.4-8.2)
[2018-06-02 16:27] LABS: Bilirubin,Urine Negative (Negative); Clarity,Urine Clear (Clear); Color,Urine Yellow (Yellw/Straw); Glucose,Urine (UA) Negative (Negative); Leukocyte Esterase,Urine Negative (Negative); Mucus,Urine Few /lpf (Occasional); Nitrite,Urine Negative (Negative); Specific Gravity,Urine 1.013 (1.002-1.035); Squamous Epithelial Cell,Urine 2 /hpf (0-5)
[2018-06-02] MEDS ORDERED: Sod Chloride 0.9% Inj 1,000 ML IV.SIG SCH (18:15)
[2018-06-02] MEDS ORDERED: clonazePAM 0.5 MG Tablet PO PRN (18:40)
[2018-06-02] MEDS ORDERED: oxyCODONE/Acetaminophen 10/325 Tablet PO PRN (18:40)
[2018-06-02] MEDS ORDERED: Acetaminophen 325 MG Tablet PO PRN (18:41)
[2018-06-02] MEDS: Dextrose 5%/NaCl 0.9% Inj 1,000 ML IV.CONT SCH (20:41)
[2018-06-02] MEDS: Senna/Docusate Sodium 8.6/50 MG Tablet PO SCH (22:13)
[2018-06-02] MEDS: Pantoprazole Inj 80 MG in Sodium Chlor 0.9% Inj 100 ML IV.CONT SCH (23:05)
[2018-06-03 00:10] LABS: Hematocrit 33.4 % (35.0-46.0); Hemoglobin 10.5 gm/dL (11.6-15.3)
[2018-06-03] MEDS: Morphine Sulfate Inj 2 MG/ML Vial IV.PUSH PRN ×5 (03:12→20:38)
[2018-06-03 03:46] LABS: Baso # (Auto) 0.1 th/mm3 (0.0-0.2); Baso % (Auto) 1.3 % (0.0-2.0); Eos % (Auto) 0.1 % (0.0-4.0); Hemoglobin 10.8 gm/dL (11.6-15.3); Lymph # (Auto) 1.5 th/mm3 (1.0-4.8); Lymph % (Auto) 16.3 % (9.0-44.0); Mean Corpuscular HGB Conc 32.6 % (32.0-36.0); Mean Corpuscular Hemoglobin 22.9 pg (27.0-34.0); Mean Corpuscular Volume 70.3 fL (80.0-100.0); Mean Platelet Volume 7.7 fL (7.0-11.0); Mono # (Auto) 0.3 th/mm3 (0.0-0.9); Mono % (Auto) 3.3 % (0.0-8.0); Neut # (Auto) 7.5 th/mm3 (1.8-7.7); Platelet Count 399 th/mm3 (150-450); Red Blood Count 4.69 mil/mm3 (4.00-5.30); Red Cell Distribution Width 21.1 % (11.6-17.2); White Blood Count 9.5 th/mm3 (4.0-11.0)
[2018-06-03 04:11] LABS: Anion Gap 12 meq/L (5-15); Blood Urea Nitrogen 7 mg/dL (7-18); Carbon Dioxide 24.2 meq/L (21.0-32.0); Chloride 105 meq/L (98-107); Glomerular Filtration Rate Greater Than 89 mL/min (>89); Glucose,Random 129 mg/dL (74-106); Potassium 3.8 meq/L (3.5-5.1); Sodium 141 meq/L (136-145)
[2018-06-03] MEDS: Dextrose 5%/NaCl 0.9% Inj 1,000 ML IV.CONT SCH (06:30)
[2018-06-03 07:18] LABS: Baso # (Auto) 0.1 th/mm3 (0.0-0.2); Baso % (Auto) 1.1 % (0.0-2.0); Hematocrit 33.7 % (35.0-46.0); Hemoglobin 10.9 gm/dL (11.6-15.3); Lymph # (Auto) 1.6 th/mm3 (1.0-4.8); Lymph % (Auto) 19.1 % (9.0-44.0); Mean Corpuscular HGB Conc 32.4 % (32.0-36.0); Mean Corpuscular Hemoglobin 23.1 pg (27.0-34.0); Mean Corpuscular Volume 71.4 fL (80.0-100.0); Mean Platelet Volume 7.9 fL (7.0-11.0); Mono # (Auto) 0.4 th/mm3 (0.0-0.9); Mono % (Auto) 4.2 % (0.0-8.0); Neut # (Auto) 6.4 th/mm3 (1.8-7.7); Neut % (Auto) 75.6 % (16.0-70.0); Platelet Count 386 th/mm3 (150-450); Red Blood Count 4.71 mil/mm3 (4.00-5.30); Red Cell Distribution Width 20.8 % (11.6-17.2); White Blood Count 8.4 th/mm3 (4.0-11.0)
[2018-06-03 08:00] LABS: Alanine Aminotransferase 33 U/L (10-53); Albumin 4.1 g/dL (3.4-5.0); Anion Gap 13 meq/L (5-15); Aspartate Aminotransferase 21 U/L (15-37); Blood Urea Nitrogen 6 mg/dL (7-18); Carbon Dioxide 24.1 meq/L (21.0-32.0); Chloride 104 meq/L (98-107); Glomerular Filtration Rate Greater Than 89 mL/min (>89); Glucose,Random 143 mg/dL (74-106); Lipase 113 U/L (73-393); Potassium 3.5 meq/L (3.5-5.1); Sodium 141 meq/L (136-145)
[2018-06-03 08:02] LABS: Alkaline Phosphatase 70 U/L (45-117); Total Protein 9.4 g/dL (6.4-8.2)
[2018-06-03] MEDS: Senna/Docusate Sodium 8.6/50 MG Tablet PO SCH ×2 (09:32→20:40)
[2018-06-03 10:17] LABS: Hematocrit 36.3 % (35.0-46.0); Hemoglobin 11.7 gm/dL (11.6-15.3)
[2018-06-03] MEDS ORDERED: fentaNYL Citrate Inj 100 MCG/2 ML Ampul ONE (12:34)
[2018-06-03] MEDS: Sod Chloride 0.9% Inj 1,000 ML IV.CONT SCH (23:16)
[2018-06-04] MEDS: Morphine Sulfate Inj 2 MG/ML Vial IV.PUSH PRN ×2 (04:35→08:55)
[2018-06-04] MEDS: Sod Chloride 0.9% Inj 1,000 ML IV.CONT SCH (08:26)
[2018-06-04] MEDS: Pantoprazole Inj 80 MG in Sodium Chlor 0.9% Inj 100 ML IV.CONT SCH (08:28)
[2018-06-04 10:15] LABS: Hematocrit 33.7 % (35.0-46.0); Hemoglobin 10.8 gm/dL (11.6-15.3)
[2018-06-04] MEDS: Senna/Docusate Sodium 8.6/50 MG Tablet PO SCH (10:32)
== END 2018-06-04 14:55 | disposition home or self-care (01) ==
LOC: NEDA 14:33 → NEPC 14:33 → NEDA 21:25 → NEPGCP 21:42
PROVIDERS: ADMIT Hospitalist; ATTEND Hospitalist
PROC: PANENDO (2018-06-03 11:42)
DX: K59.09 Other constipation; R12 Heartburn; D64.9 Anemia, unspecified; G89.29 Other chronic pain; R10.13 Epigastric pain; R73.9 Hyperglycemia, unspecified; M41.9 Scoliosis, unspecified; F17.210 Nicotine dependence, cigarettes, uncomplicated; K29.50 Unspecified chronic gastritis without bleeding; R11.2 Nausea with vomiting, unspecified; M54.9 Dorsalgia, unspecified